=== PATIENT | male | born 1945 | race Caucasian/White ===

== ENCOUNTER 2021-01-18 00:35 | Observation (INO) ==
[2021-01-18 01:45] LABS: Partial Thromboplastin Ratio 1.2; Prothrombin Time 18.9 Seconds (9.0-12.0)
[2021-01-18 01:47] LABS: Albumin Level 3.2 gm/dl (3.4-5.0); BUN Creatinine Ratio 14.3 (10-20); Calcium 9.1 mg/dl (8.5-10.1); Creatinine Clr Calc Pharmacy 56.3 ml/min; Est GFR (African American) 50.8 ml/min; Est GFR (Non-African American) 43.8 ml/min; Potassium 3.2 mmol/L (3.5-5.1)
[2021-01-18 01:50] LABS: Albumin Globulin Ratio 0.8 (0.9-2); Bilirubin,Total 1.9 mg/dl (0.2-1); Globulin 3.9 gm/dl (2.5-4.0); Total Protein 7.1 gm/dl (6.4-8.2)
[2021-01-18] MEDS ORDERED: METOPROLOL TARTRATE 1 MG/ML VIAL IV STA ×2 (02:06→23:47)
[2021-01-18] MEDS ORDERED: SODIUM CHLORIDE 0.9% 250 ML IV ONE (02:07)
[2021-01-18 02:15] LABS: Hematocrit (blood only) 48.3 % (42-52); Hemoglobin 16.2 g/dL (14.0-18.0); Mean Corpuscular Hemoglobin 27.9 pg (25-34); Mean Corpuscular Hgb Conc 33.5 g/dL (32-36); Mean Corpuscular Volume 83.3 fL (80-100); Mean Platelet Volume 9.8 fL (7.4-10.4); Platelet Count 79 K/uL (130-400); RDW Standard Deviation 48.1 fL (36.4-46.3); White Blood Count 6.98 K/uL (4.8-10.8)
[2021-01-18] MEDS ORDERED: SODIUM CHLORIDE 0.9% 1000ML 1,000 ML IV ONE (02:17)
[2021-01-18 02:29] LABS: Basophils # (auto) 0.01 K/uL (0-0.2); Basophils % (auto) 0.1 %; Eosinophils # (auto) 0.07 K/uL (0-0.5); Immature Granulocytes # (auto) 0.03 K/uL (0.00-0.02); Immature Granulocytes % (auto) 0.4 %; Lymphocytes # (auto) 0.75 K/uL (1.2-3.4); Lymphocytes % (auto) 10.7 %; Monocytes # (auto) 0.58 K/uL (0.11-0.59); Monocytes % (auto) 8.3 %; Neutrophils # (auto) 5.54 K/uL (1.4-6.5); Neutrophils % (auto) 79.5 %; Platelet Estimate Decreased (Normal)
[2021-01-18] MEDS: POTASSIUM CHLORIDE / WTR 10 MEQ/100 ML PLCT IV SCH ×2 (02:50→03:51)
[2021-01-18 04:10] LABS: Lyme Ab IgG w/WB Rflx Negative (Negative); Lyme Ab IgM w/WB Rflx Negative (Negative)
[2021-01-18] MEDS ORDERED: DOXYCYCLINE HYCLATE 100 MG in DEXTROSE 5% 100 ML IV STA (04:48)
[2021-01-18] MEDS ORDERED: CEFEPIME 2,000 MG/20 ML VIAL IV STA (04:59)
[2021-01-18] MEDS ORDERED: SODIUM CHLORIDE 0.9% 500 ML IV ONE (05:13)
[2021-01-18 05:20] LABS: Appearance Urine Clear (Clear); Bilirubin Urine Negative (Negative); Blood Urine Negative (Negative); Color Urine Dark Yellow; Glucose Urine UA Negative (Negative); Ketones Urine Trace (Negative); Leukocyte Esterase Urine Negative (Negative); Nitrite Urine Negative (Negative); Protein Urine Negative (Negative); Specific Gravity Urine 1.013 (1.000-1.030); Urobilinogen Urine Negative (Negative)
[2021-01-18] MEDS: SODIUM CHLORIDE 0.9% 1000ML 1,000 ML IV SCH ×3 (05:59→22:00)
--- NOTE | 2021-01-18 06:21 | History & Physical Report ---
Date of Service January 18, 2021 Assessment & Plan (1) Dyspnea: Plan: Julius Bauer is a 75-year-old male with PMH significant for for pulmonary embolisms on warfarin anticoagulation, chronic kidney disease stage III, hypertension, GERD; who presents for concern of worsening illness over the last day. Dyspnea: -Patient with new 2 L oxygen requirement due to desaturations in ED -CXR in ED demonstrating slight increased opacities over right lower lobe corroborated with auscultative findings -Procalcitonin elevated -Negative WBC -Lyme negative -Anaplasma pending -Received cefepime in ED as well as doxycycline -Continue doxycycline -BNP pending given peripheral edema and new oxygen requirement Acute kidney injury on CKD stage III: -Creatinine 1.53 on admission (baseline creatinine appears to be 1.1) -Hold nephrotoxic agents at this point -Continue to monitor daily History of pulmonary embolisms: -Chronically anticoagulated on warfarin -INR 2.0 on admission -At this time minimal concern for acute PE -No baseline history of oxygen requirement -Consideration of CT PE protocol if further concerns; however dyspnea more likely to be related to underlying infectious process at this time Hypertension: -Continue home carvedilol 12.5 mgBID Diet: Carb consistent CODE STATUS: DNR/DNI DVT prophylaxis: Warfarin (2) History of pulmonary embolus (PE): (3) Chronic kidney disease, stage 3 (moderate): (4) Prediabetes: (5) Essential hypertension: (6) Warfarin anticoagulation: History of Present Illness Primary Care Provider: Haydee Mondragon DO Julius Bauer is a 75-year-old male with PMH significant for for pulmonary embolisms on warfarin anticoagulation, chronic kidney disease stage III, hypertension, GERD; who presents for concern of worsening illness over the last day. Over the last day has had concerns for worsening fevers, chills, sweats, fatigue, and winded/short of breath. No history was going to ignore it however ultimately called EMS given his continued symptoms overnight. No recent sick contacts that he can identify. Spends a considerable portion of his time outdoors gardening. In the ED worked up for tickborne illnesses given high prevalence in local areas of tickborne disease. Allergies Allergy/AdvReac Type Severity Reaction Status Date / Time No Known Allergies Allergy Verified 01/18/21 01:37 Home Medications Medication Instructions Recorded Confirmed Type aspirin 81 mg tablet,delayed 81 mg PO HS tab 12/21/17 01/18/21 History release (Adult Aspirin Regimen) acetaminophen 650 mg 650 mg PO QID PRN tab 01/22/19 01/18/21 History tablet,extended release CPAP Machine #1 ea 01/01/20 12/30/20 Rx lansoprazole 15 mg capsule,delayed 15 mg PO DAILY #90 cap 07/22/20 01/18/21 Rx release venlafaxine 37.5 mg tablet 37.5 mg PO BID #180 tab 11/24/20 01/18/21 Rx bstpsmfdrfea-jsu-zizlt acid-vit 1 tab PO 3XWK tab 12/01/20 01/18/21 History K-lycop 400 mcg-20 mcg-370 mcg tablet (Men's 50 Plus Multivitamin) alprazolam 0.5 mg tablet (Xanax) 0.5 mg PO BID PRN #60 tab 12/20/20 01/18/21 Rx carvedilol 12.5 mg tablet 12.5 mg PO BID #180 tab 12/29/20 01/18/21 Rx warfarin 2 mg tablet See Rx Instructions PO UD #90 tab 01/12/21 01/18/21 Rx calcium carbonate 500 mg (1,250 1 tab PO DAILY 01/18/21 01/18/21 History mg)-vitamin D3 125 unit tablet Past Med/Surg History Medical History Anxiety Chronic kidney disease, stage 3 (moderate) Chronic venous insufficiency DVT (deep venous thrombosis) Essential hypertension GERD (gastroesophageal reflux disease) History of colon cancer History of pulmonary embolus (PE) History of TIA (transient ischemic attack) Lymphedema Obstructive sleep apnea syndrome Prediabetes Restless legs syndrome Vitamin D insufficiency Surgical History History of eyelid surgery History of tonsillectomy S/P partial colectomy (1992) Family History Unknown Hypertension Father Cancer Lung disease Mother Myocardial infarction Coronary heart disease Son BRITTNEY (obstructive sleep apnea) Denies family history of Ovarian cancer Prostate cancer Breast cancer Colorectal cancer Social History Smoking Status: Former smoker Age Started Using Tobacco: 12; packs per day: 2; Second Hand Exposure: No; Hx Alcohol Use: No Hx Substance Use: No Preferred Language: Thai Communication Ability: Effective Visual Impairment: Severely Limited Hearing Ability: Normal Health Care Aide Required: No Beliefs That Will Affect Care: None marital status: Current Living Situation: Spouse Current Living Situation Comment: 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 occupational status: retired How many Children do You have: 1 How many Children do You have Comment: children are local and able to assist as needed Feels Safe at Home: Yes Diet Comment: has meals on wheels during the past year weight has: remained stable Dental Care, Regularly: No Physical Activity Frequency: 1-2 Times per Week Seatbelt Use: always Sunscreen Use: Yes Assistive Devices: Cane and Glasses Review of Systems Review of Systems: All systems reviewed & are unremarkable except as noted in HPI & below Physical Exam Constitutional: + frail appearing, + disheveled and + diaphoretic Eyes: PERRL, conjunctivae normal, anicteric sclerae Respiratory: normal respiratory effort; no respiratory distress, no labored breathing, no retractions and does not use accessory muscles Auscultation: + diminished lung sounds and + rhonchi (Coarse over whole field bilaterally); breath sounds present, no rales and no wheezes Cardiovascular: Rate/Rhythm: regular rate and regular rhythm Heart Sounds: no gallop, no murmur and no cardiac rub Vessels: normal peripheral pulses; no JVD Extremities: + edema Gastrointestinal (Abdomen): Inspection/Auscultation: normal bowel sounds; abdomen not distended Percussion/Palpation: abdomen soft; abdomen nontender and no guarding Musculoskeletal: no cyanosis or clubbing, extremities motor strength 5/5 Skin: Chronic appearing venous stasis changes to bilateral lower extremities, old eschar over right lower extremity Psychiatric: Orientation: alert and oriented x 3 Results & Data Results & Data ([facility]) Vital Signs (Past 12 Hours) Vital Signs Temp Pulse Resp BP Pulse Ox 01/18/21 05:30 90 95/66 L 99 01/18/21 05:00 90 20 85/60 L 99 01/18/21 04:55 37.1 C 01/18/21 04:43 92 H 22 107/67 94 01/18/21 04:30 90 18 93 01/18/21 04:00 96/68 L 93 01/18/21 03:30 93 H 110/63 93 01/18/21 03:00 95 H 100/66 93 01/18/21 02:30 96 H 100/69 93 01/18/21 02:13 121 H 107/73 92 01/18/21 02:00 97 H 109/67 91 01/18/21 01:30 91/62 L 95 01/18/21 01:11 37.2 C 136 H 22 108/75 94 01/18/21 01:00 137 H 102/70 92 Laboratory Results 01/18/21 01/18/21 01/18/21 Range/Units 06:05 06:05 06:05 WBC (4.8-10.8) K/uL RBC (4.7-6.1) M/uL Hgb (14.0-18.0) g/dL Hct (42-52) % MCV (80-100) fL MCH (25-34) pg MCHC (32-36) g/dL RDW Std Deviation (36.4-46.3) fL RDW Coeff of Scooter (11.5-14.5) % Plt Count (130-400) K/uL MPV (7.4-10.4) fL Immature Gran % (Auto) % Neut % (Auto) % Lymph % (Auto) % Randall % (Auto) % Eos % (Auto) % Baso % (Auto) % Neut # (Auto) (1.4-6.5) K/uL Lymph # (Auto) (1.2-3.4) K/uL Randall # (Auto) (0.11-0.59) K/uL Eos # (Auto) (0-0.5) K/uL Baso # (Auto) (0-0.2) K/uL Immature Gran # (Auto) (0.00-0.02) K/uL Platelet Estimate (Normal) PT (9.0-12.0) Seconds INR (0.9-1.1) APTT (21.0-31.0) Seconds PTT Ratio Sodium (136-145) mmol/L Potassium (3.5-5.1) mmol/L Chloride (98-107) mmol/L Carbon Dioxide (21-32) mmol/L Anion Gap (3-11) BUN (7-18) mg/dl Creatinine (0.6-1.4) mg/dl Est Cr Clr Drug Dosing ml/min Est GFR ( Amer) ml/min Est GFR (Non-Af Amer) ml/min BUN/Creatinine Ratio (10-20) Glucose (70-99) mg/dl Lactate 2.1 H* (0.4-2.0) mmol/L Calcium (8.5-10.1) mg/dl Total Bilirubin (0.2-1) mg/dl AST (15-37) U/L ALT (12-78) U/L Alkaline Phosphatase (45-117) U/L NT-Pro-B Natriuret Pep 2861 H (0-900) pg/ml Total Protein (6.4-8.2) gm/dl Albumin (3.4-5.0) gm/dl Globulin (2.5-4.0) gm/dl Albumin/Globulin Ratio (0.9-2) Procalcitonin 12.99 H (0-0.5) ng/ml Urine Color Urine Appearance (Clear) Urine pH (4.5-7.5) Ur Specific [place] (1.000-1.030) Urine Protein (Negative) Urine Glucose (UA) (Negative) Urine Ketones (Negative) Urine Blood (Negative) Urine Nitrite (Negative) Urine Bilirubin (Negative) Urine Urobilinogen (Negative) Ur Leukocyte Esterase (Negative) A. phagocytophilum DNA Lyme Disease IgG Ab (Negative) Lyme Disease IgM Ab (Negative) COVID-19 Eval Order SARS-CoV-2 (PCR) (Negative) 01/18/21 01/18/21 01/18/21 Range/Units 04:40 03:53 02:38 WBC (4.8-10.8) K/uL RBC (4.7-6.1) M/uL Hgb (14.0-18.0) g/dL Hct (42-52) % MCV (80-100) fL MCH (25-34) pg MCHC (32-36) g/dL RDW Std Deviation (36.4-46.3) fL RDW Coeff of Scooter (11.5-14.5) % Plt Count (130-400) K/uL MPV (7.4-10.4) fL Immature Gran % (Auto) % Neut % (Auto) % Lymph % (Auto) % Randall % (Auto) % Eos % (Auto) % Baso % (Auto) % Neut # (Auto) (1.4-6.5) K/uL Lymph # (Auto) (1.2-3.4) K/uL Randall # (Auto) (0.11-0.59) K/uL Eos # (Auto) (0-0.5) K/uL Baso # (Auto) (0-0.2) K/uL Immature Gran # (Auto) (0.00-0.02) K/uL Platelet Estimate (Normal) PT (9.0-12.0) Seconds INR (0.9-1.1) APTT (21.0-31.0) Seconds PTT Ratio Sodium (136-145) mmol/L Potassium (3.5-5.1) mmol/L Chloride (98-107) mmol/L Carbon Dioxide (21-32) mmol/L Anion Gap (3-11) BUN (7-18) mg/dl Creatinine (0.6-1.4) mg/dl Est Cr Clr Drug Dosing ml/min Est GFR ( Amer) ml/min Est GFR (Non-Af Amer) ml/min BUN/Creatinine Ratio (10-20) Glucose (70-99) mg/dl Lactate 2.3 H* (0.4-2.0) mmol/L Calcium (8.5-10.1) mg/dl Total Bilirubin (0.2-1) mg/dl AST (15-37) U/L ALT (12-78) U/L Alkaline Phosphatase (45-117) U/L NT-Pro-B Natriuret Pep (0-900) pg/ml Total Protein (6.4-8.2) gm/dl Albumin (3.4-5.0) gm/dl Globulin (2.5-4.0) gm/dl Albumin/Globulin Ratio (0.9-2) Procalcitonin (0-0.5) ng/ml Urine Color Dark Yellow Urine Appearance Clear (Clear) Urine pH 5.0 (4.5-7.5) Ur Specific [place] 1.013 (1.000-1.030) Urine Protein Negative (Negative) Urine Glucose (UA) Negative (Negative) Urine Ketones Trace H (Negative) Urine Blood Negative (Negative) Urine Nitrite Negative (Negative) Urine Bilirubin Negative (Negative) Urine Urobilinogen Negative (Negative) Ur Leukocyte Esterase Negative (Negative) A. phagocytophilum DNA Lyme Disease IgG Ab (Negative) Lyme Disease IgM Ab (Negative) COVID-19 Eval Order SARS-CoV-2 (PCR) NEGATIVE (Negative) 01/18/21 01/18/21 01/18/21 Range/Units 02:38 01:03 01:03 WBC (4.8-10.8) K/uL RBC (4.7-6.1) M/uL Hgb (14.0-18.0) g/dL Hct (42-52) % MCV (80-100) fL MCH (25-34) pg MCHC (32-36) g/dL RDW Std Deviation (36.4-46.3) fL RDW Coeff of Scooter (11.5-14.5) % Plt Count (130-400) K/uL MPV (7.4-10.4) fL Immature Gran % (Auto) % Neut % (Auto) % Lymph % (Auto) % Randall % (Auto) % Eos % (Auto) % Baso % (Auto) % Neut # (Auto) (1.4-6.5) K/uL Lymph # (Auto) (1.2-3.4) K/uL Randall # (Auto) (0.11-0.59) K/uL Eos # (Auto) (0-0.5) K/uL Baso # (Auto) (0-0.2) K/uL Immature Gran # (Auto) (0.00-0.02) K/uL Platelet Estimate (Normal) PT (9.0-12.0) Seconds INR (0.9-1.1) APTT (21.0-31.0) Seconds PTT Ratio Sodium (136-145) mmol/L Potassium (3.5-5.1) mmol/L Chloride (98-107) mmol/L Carbon Dioxide (21-32) mmol/L Anion Gap (3-11) BUN (7-18) mg/dl Creatinine (0.6-1.4) mg/dl Est Cr Clr Drug Dosing ml/min Est GFR ( Amer) ml/min Est GFR (Non-Af Amer) ml/min BUN/Creatinine Ratio (10-20) Glucose (70-99) mg/dl Lactate (0.4-2.0) mmol/L Calcium (8.5-10.1) mg/dl Total Bilirubin (0.2-1) mg/dl AST (15-37) U/L ALT (12-78) U/L Alkaline Phosphatase (45-117) U/L NT-Pro-B Natriuret Pep (0-900) pg/ml Total Protein (6.4-8.2) gm/dl Albumin (3.4-5.0) gm/dl Globulin (2.5-4.0) gm/dl Albumin/Globulin Ratio (0.9-2) Procalcitonin (0-0.5) ng/ml Urine Color Urine Appearance (Clear) Urine pH (4.5-7.5) Ur Specific [place] (1.000-1.030) Urine Protein (Negative) Urine Glucose (UA) (Negative) Urine Ketones (Negative) Urine Blood (Negative) Urine Nitrite (Negative) Urine Bilirubin (Negative) Urine Urobilinogen (Negative) Ur Leukocyte Esterase (Negative) A. phagocytophilum DNA Pending Lyme Disease IgG Ab Negative (Negative) Lyme Disease IgM Ab Negative (Negative) COVID-19 Eval Order Covid19 at [facility] SARS-CoV-2 (PCR) (Negative) 01/18/21 01/18/21 01/18/21 Range/Units 01:03 01:03 01:03 WBC 6.98 (4.8-10.8) K/uL RBC 5.80 (4.7-6.1) M/uL Hgb 16.2 (14.0-18.0) g/dL Hct 48.3 (42-52) % MCV 83.3 (80-100) fL MCH 27.9 (25-34) pg MCHC 33.5 (32-36) g/dL RDW Std Deviation 48.1 H (36.4-46.3) fL RDW Coeff of Scooter 16.0 H (11.5-14.5) % Plt Count 79 L (130-400) K/uL MPV 9.8 (7.4-10.4) fL Immature Gran % (Auto) 0.4 % Neut % (Auto) 79.5 % Lymph % (Auto) 10.7 % Randall % (Auto) 8.3 % Eos % (Auto) 1.0 % Baso % (Auto) 0.1 % Neut # (Auto) 5.54 (1.4-6.5) K/uL Lymph # (Auto) 0.75 L (1.2-3.4) K/uL Randall # (Auto) 0.58 (0.11-0.59) K/uL Eos # (Auto) 0.07 (0-0.5) K/uL Baso # (Auto) 0.01 (0-0.2) K/uL Immature Gran # (Auto) 0.03 H (0.00-0.02) K/uL Platelet Estimate Decreased L (Normal) PT 18.9 H (9.0-12.0) Seconds INR 2.0 H (0.9-1.1) APTT 31.0 (21.0-31.0) Seconds PTT Ratio 1.2 Sodium 142 (136-145) mmol/L Potassium 3.2 L (3.5-5.1) mmol/L Chloride 109 H (98-107) mmol/L Carbon Dioxide 25 (21-32) mmol/L Anion Gap 8.0 (3-11) BUN 22 H (7-18) mg/dl Creatinine 1.53 H (0.6-1.4) mg/dl Est Cr Clr Drug Dosing 56.3 ml/min Est GFR ( Amer) 50.8 ml/min Est GFR (Non-Af Amer) 43.8 ml/min BUN/Creatinine Ratio 14.3 (10-20) Glucose 111 H (70-99) mg/dl Lactate (0.4-2.0) mmol/L Calcium 9.1 (8.5-10.1) mg/dl Total Bilirubin 1.9 H (0.2-1) mg/dl AST 27 (15-37) U/L ALT 19 (12-78) U/L Alkaline Phosphatase 57 (45-117) U/L NT-Pro-B Natriuret Pep (0-900) pg/ml Total Protein 7.1 (6.4-8.2) gm/dl Albumin 3.2 L (3.4-5.0) gm/dl Globulin 3.9 (2.5-4.0) gm/dl Albumin/Globulin Ratio 0.8 L (0.9-2) Procalcitonin (0-0.5) ng/ml Urine Color Urine Appearance (Clear) Urine pH (4.5-7.5) Ur Specific [place] (1.000-1.030) Urine Protein (Negative) Urine Glucose (UA) (Negative) Urine Ketones (Negative) Urine Blood (Negative) Urine Nitrite (Negative) Urine Bilirubin (Negative) Urine Urobilinogen (Negative) Ur Leukocyte Esterase (Negative) A. phagocytophilum DNA Lyme Disease IgG Ab (Negative) Lyme Disease IgM Ab (Negative) COVID-19 Eval Order SARS-CoV-2 (PCR) (Negative) Medications Administered Home Medication List Medication Instructions Recorded aspirin 81 mg tablet,delayed 81 mg PO HS tab 12/21/17 release (Adult Aspirin Regimen) acetaminophen 650 mg 650 mg PO QID PRN tab 01/22/19 tablet,extended release CPAP Machine #1 ea 01/01/20 lansoprazole 15 mg capsule,delayed 15 mg PO DAILY #90 cap 07/22/20 release venlafaxine 37.5 mg tablet 37.5 mg PO BID #180 tab 11/24/20 ovrudycalvwn-wyr-ozhwm acid-vit 1 tab PO 3XWK tab 12/01/20 K-lycop 400 mcg-20 mcg-370 mcg tablet (Men's 50 Plus Multivitamin) alprazolam 0.5 mg tablet (Xanax) 0.5 mg PO BID PRN #60 tab 12/20/20 carvedilol 12.5 mg tablet 12.5 mg PO BID #180 tab 12/29/20 warfarin 2 mg tablet See Rx Instructions PO UD #90 tab 01/12/21 calcium carbonate 500 mg (1,250 1 tab PO DAILY 01/18/21 mg)-vitamin D3 125 unit tablet Code Status & VTE Plan VTE Prophylaxis Plan VTE Prophylaxis will be ordered: Yes Supervising Physician Co-Signing Physician Notes Attending addendum: I have physically seen this patient, have supervised the medical residents activities, and agree with the H&P unless as otherwise noted. Assessment and Plan: Early pneumonia/right lower lobe/history of PE-- Status post cefepime and doxycycline in ED Continue doxycycline 100 mg IV twice daily INR therapeutic at 2.0 on warfarin, continue MISTI on CKD stage III - Creatinine 1.53 upon admission, with base 1.1 Gentle rehydration, repeat laboratories in a.m. Concern regarding tickborne illness- Lyme testing negative Anaplasmosis smear is negative Continue to doxycycline IV as noted above Remaining orders and notations as noted Resident Activity Tracking Resident Involvement: Resident Care Provided Care Provided: Adult Hospital Medicine
[2021-01-18] MEDS ORDERED: POTASSIUM CHLORIDE CRTAB 20 MEQ TABCR PO STA (08:26)
--- NOTE | 2021-01-18 09:08 | XRay Report ---
XR chest 1V portable INDICATION: MN ^Y ^short of breath. TECHNIQUE: Single frontal radiograph of the chest was obtained. Comparison: Comparison is made to chest one view 12/12/2017 FINDINGS: Exam is limited by underpenetration. No lines and tubes are seen. The aorta is tortuous. The remainde r of the cardiomediastinal silhouette is unremarkable. The lungs are clear. No evidence of pleural ef fusion or pneumothorax. IMPRESSION: No acute chest disease. ACT 112: Negative or not required by law. Electronically signed by: Yan Gao M.D. 01/18/2021 9:06 AM
[2021-01-18] MEDS ORDERED: cefTRIAXone SODIUM 1,000 MG in DEXTROSE 5% 50 ML IV STA (11:29)
[2021-01-18] MEDS ORDERED: MAGNESIUM HYDROXIDE SUSP 30 ML UDC PO PRN (11:37)
[2021-01-18] MEDS ORDERED: ACETAMINOPHEN 500 MG TAB PO PRN (11:37)
[2021-01-18] MEDS ORDERED: POLYETHYLENE (MIRALAX) 17 GM PACK PO PRN (11:37)
[2021-01-18] MEDS ORDERED: ONDANSETRON INJ 2 MG/ML 2 ML VIAL IV PRN (11:37)
[2021-01-18] MEDS ORDERED: ALPRAZolam 0.5 MG TABLET PO PRN (11:37)
[2021-01-18] MEDS ORDERED: ALUMINUM/MAGNESIUM SUSP 30 ML UDC PO PRN (11:37)
[2021-01-18] MEDS ORDERED: cefTRIAXone SODIUM 2,000 MG in DEXTROSE 5% 50 ML IV SCH (12:00)
[2021-01-18] MEDS: carvediloL 12.5 MG TAB PO SCH ×2 (12:22→21:19)
[2021-01-18] MEDS: LANSOPRAZOLE 15 MG SOLTAB PO SCH (12:22)
[2021-01-18] MEDS: VENLAFAXINE HCL 37.5 MG TAB PO SCH ×2 (12:22→21:19)
--- NOTE | 2021-01-18 14:36 | CT Scan Report ---
CT chest diagnostic wo con CLINICAL HISTORY: Rll pnuemonia COMPARISON STUDY: No previous studies for comparison. CT DOSE: 618.83 mGycm TECHNIQUE: CT of the thorax was performed from the thoracic inlet to the lung bases. Images are revi ewed in the axial, sagittal, and coronal planes. IV contrast was not administered for this examinatio n. A dose lowering technique was utilized adhering to the principles of ALARA. FINDINGS: There is no axillary, supra clavicle or internal mammary lymphadenopathy seen. Mediastinal lymph node s are not enlarged. Thyroid: Visualized portion of thyroid gland shows no evidence of focal lesions. Esophagus is normal. There is moderate fat containing hiatal hernia is seen. Thoracic aorta: Ascending portion of thoracic aorta is ectatic measuring 4.1 cm in diameter. Main pulmonary artery is dilated measuring 3.2 cm in diameter, which could be seen in pulmonary hyper tension. Azygos vein is prominent. Heart: The heart is normal in size and configuration, without pericardial effusion. Minimal coronary calcifications are seen. Lungs and pleural spaces: Tracheobronchial tree is patent. Prominent septal thickening is seen at peripheral aspect of posterior basal segments of bilateral low er lobes and associated with architectural distortion and possible traction bronchiectasis. Focal are a of possible honeycombing is seen at the lateral basal segment of the left lower lobe (4/210). Above -mentioned findings could represent interstitial lung disease. No definite groundglass attenuation is seen, UIP pattern is possible however evaluation is limited due to significant motion artifact. No definite large pulmonary nodules are seen on this suboptimal exam. Upper abdomen: Partially visualized upper abdominal viscera is within normal limits. Skeletal structures: Multilevel degenerative changes of the spine. No definite aggressive osseous les ions are seen. IMPRESSION: No infiltrates or consolidative lesions. No pneumonia seen. Mild atelectasis is seen at dependent portions of bilateral lower lobes. Interstitial fibrosis is seen at the posterior distal aspect of bilateral lower lobes without signifi cant groundglass attenuation; also there is focal area of possible honeycombing and mild traction bro nchiectasis which might represent UIP pattern. Evaluation is suboptimal due to motion artifact. Pleas e correlate above-mentioned findings with prior history of interstitial lung disease. Further evaluat ion with prone imaging might be considered. Dilatation of the main pulmonary artery could be seen in pulmonary hypertension. Please note that int erstitial lung disease sometimes accompanied by pulmonary hypertension. Ectasia of ascending thoracic aorta. Please correlate above-mentioned findings with prior history. The rest of findings as above. ACT 112: Negative or not required by law. The above report was generated using voice recognition software. It may contain grammatical, syntax o r spelling errors. Electronically signed by: Yahaira Warren DO 01/18/2021 2:35 PM
[2021-01-18] MEDS: DOXYCYCLINE HYCLATE 100 MG in DEXTROSE 5% 100 ML IV SCH (17:08)
[2021-01-18] MEDS: WARFARIN SOD 2 MG TAB PO SCH (17:09)
--- NOTE | 2021-01-18 17:24 | Medical Student Progress Note ---
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 Fever with fatigue, chills, malaise secondary to suspected tick-borne illness vs community-acquired PNA - crackles and rhonchi on auscultation, R lower lobe with more rhonchi than L lower lobe - chest x-ray and CT Chest with no acute findings - continue oxygen via nasal cannula until oxygen demand returns to baseline - Echo pending, last echo 2017 - monitor platelets w/ CBC, likely low due to infection - blood cultures pending - Lyme, anaplasmosis, and babesiosis testing negative, however, with high false negative rate will continue to monitor patient while symptomatic. - Continue NSS 125ml/hr and supportive measures - Continue Doxycycline 100 mg IV BID and monitor symptoms closely, - Patient received 1 dose of Rocephin, since discontinued (PNA less likely) Hypertension -Continue home Carvedilol MISTI on CKD stage III -Creatinine on admission 1.53, base 1.1-1.2 - continue anti-hypertensives, is on carvedilol - monitor BMP including Creatinine daily - IVF hydration as above History of PE's -On warfarin therapy -INR of 2 on admission -Continue to monitor throughout stay -Patient was therapeutic on admission, low suspicion for current PE -If concern worsens, consider CTA to r/o clots GERD -Continue home Lasoprazole BRITTNEY - continue CPAP use - encourage weight loss and nutritional changes (more fruits and veggies, heart- healthy diet) chronic venous insufficiency - compression stockings - encourage activity and walking around, good infection prevention (keep wounds and cuts clean) Anxiety -Well controlled on home medications -Continue home Venlafaxine, continue home xanax PRN Dispo: Med/Surg Telemetry for IV antibiotics, IVF, supportive care, and continuous cardiac monitoring. FEN/GI: Heart Healthy diet, NSS 125ml/hr DVT: Warfarin Code: DNR/DNI (2) Dyspnea: (3) Malaise: (4) Chills: Admission and Anticipated Discharge Date Admission Date: January 18, 2021 Supervising Attestation I personally examined the patient and verified all lindo points of history and exam, discussed case, and agree with decision making with Surendra Ortez MS2 Ongoing fevers and chills. A little bit of cough that is new, notes no new or worse dyspnea. Everything really started abruptly in the last day or sohe was eating breakfast feeling fine, and then about an hour later he was having chills. Vitals noted, in general he is awake and alert to 2 times a centimeter today at first he appears quite fatigued and starts to have some shakes, later he disappears resting a little tired but no distress. HEENT normocephalic atraumatic mucous membranes moist. Lungs show right greater than left scattered rales good air entry, no wheezes no accessory muscle use. Abdomen is soft nondistended nontender no masses organomegaly. Cardio is regular without rubs murmurs or gallops. Extremities show no sinus clubbing or edema no calf tenderness no erythema no rashes. Skin shows no rashes no pallor or icterus. Neuro without focal deficits at rest. Septic picture/constitutional symptoms/rigorsetiology not overtly clearinitial ly concern on pneumonia based on new cough and nondescript chest x- rayparticularly given lung exam findingsCT promptly checked without anything overtly concerning for pneumonia. Tickborne type illnesses certainly would be high on the differential given where we live, and his thrombocytopenia, as well as the overall presentationfor now empiric doxycycline, and if he does not improve, revisit diagnostic testing versus change to Zithromax/atovaquone. Follow blood cultures. Supportive care. Serial exams/serial labs. Otherwise as above. 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 Patient states on Tuesday 01/16 he spent the day doing laundry and yard work and went to sleep around 12 am. He says he woke up a few times that night. When he woke up the next morning 01/17 to get ready for the day, he felt like he had no energy and made his way to the couch. He was nauseous and tried to throw up, but was only dry heaving. He states he was also freezing and needed to use an electric blanket, and he says he is almost never cold. He shares that he was so cold that he was physically shaking. Patient attempted to use the bathroom and lost his footing, but caught himself. He did not hit his head or the ground. He shares that he didn't take any medication for any of his symptoms, but took his daily medications on Sunday. He believes it was after his instability/losing his footing that his called the ambulance, though he is unsure what time many of the events on Sunday happened, as well as the precise order of events. Of note, patient mentions that he is experiencing brain fog and is unsure of exact times that things happened the last few days. Upon arrival at the ED, he was found to have a fever, chills, and sweating. He was not short of breath and did not have chest pain or discomfort. However, he felt very sick and very weak. He states he has been unable to eat due to the nausea, but he vaguely remembers eating raisin bran, though he is not sure if that was this morning or yesterday morning. Along with his "brain fog" he has a headache this AM. It doesn't currently hurt him to breathe, but he has some abdominal discomfort from the nausea. He does not feel constipated and has been able to urinate overnight. He is not in acute pain, but is in pain from his chronic back and arthritis issues. Significantly, patient and his recently got a puppy and patient finds himself in positions of caring for the puppy that lead to his back and joints hurting. This morning, his main concern is how fatigued and tired he is. He was laying on his side to avoid the discomfort of laying on his back while conversing with me. He has no changes to taste or smell and was found to be COVID negative. He does sound a little congested and does have a dry, deep cough this AM. He told me that his vision is currently blurry but he is able to see okay. His right eye is always "bad" and he can hardly see out of it normally. He uses glasses only for reading. No other changes to vision, and no changes to hearing. Notably, he has no sick contacts and shares that he and his rarely go out. He shared with me that he had a similar experience to this episode a few years ago at [facility], but he isn't sure what the diagnosis or treatment was. Review of Systems Review of Systems: All systems reviewed & are unremarkable except as noted in HPI & below Constitutional: + fever, + chills, + sweats, + fatigue and + weakness nausea Eyes: new bilateral blurry vision, R eye decreased visual acuity at all times Ear, Nose, Mouth, Throat: + nasal congestion dry cough Respiratory: + cough and + dyspnea Cardiovascular: Additional Comments: bilateral lower extremity edema Gastrointestinal: + bloating and + nausea Integumentary: + lesions and + dry skin healing lower extremity lesions bilaterally, pt with history of chronic venous insufficiency Neurologic: + headache(s) Psychiatric: "brain fog" Endocrine: + fatigue and + flushing Allergy / Immunological: + cough and + dyspnea Physical Exam Constitutional: well developed, well nourished, + ill appearing, + obese, well groomed and cooperative Eyes: PERRL, conjunctivae normal, anicteric sclerae ENMT: external ear and nose normal, oropharynx normal Nose: + nasal mucous membrane abnormality (moist mucus membranes bilaterally, patient congested) Mouth: + oropharynx abnormality (white sputum appearing liquid on superior aspect of posterior palate ) Throat: uvula midline Neck: trachea midline, no thyromegaly normal visual inspection, trachea midline and + thick neck Respiratory: normal respiratory effort, + cough, able to speak in complete sentences and + abnormal respiratory pattern Auscultation: + crackles and + rhonchi (lower lobes bilaterally, more pronounced in R lower lobe) Cardiovascular: RRR, no murmur, no edema Heart Sounds: normal S1 and normal S2 Vessels: normal peripheral pulses Extremities: + edema (+1 to the ankle b/l ) Chest (Breasts): normal inspection/palpation of breasts Gastrointestinal (Abdomen): normal bowel sounds, soft, nontender, no hepatosplenomegaly some abdominal discomfort due to nausea Musculoskeletal: no cyanosis or clubbing, extremities motor strength 5/5 Head/Neck/Chest: normocephalic, head atraumatic and neck supple Extremities: extremities normal to inspection and strength 5/5 throughout Skin: + rash (extensive bruising on arms from pt's dog), + lesion (multiple healing lesions in various stages on lower extremities), + dry skin and + lichenification (on lower extremities bilaterally ) Neurologic: PERRL, EOMI, accommodation nl, no face palsy, no dysarthria normal touch/pain/proprioception, CN's II-XI intact bilaterally, moves all extremities and awake Cranial Nerves: sense of smell intact, PERRL, normal accommodation, EOM intact bilaterally, normal facial strength, tongue midline, normal hearing, able to rotate head bilaterally, able to elevate shoulders bilaterally, no nystagmus and symmetric palate elevation Psychiatric: A+Ox3, euthymic affect Apperance: appropriately groomed and appeared stated age Eye Contact: good eye contact Motor Behavior: no abnormal motor movements Speech: normal rate/rhythm/volume of speech Affect: euthymic affect Thought Process: linear/logical thought process Cognition: recent memory grossly intact, remote memory grossly intact, attention grossly intact and language grossly intact Results & Data ([facility]) Vital Signs (Past 12 Hours) Vital Signs Temp Pulse Pulse Resp BP BP Pulse Ox 01/18/21 16:34 83 01/18/21 14:32 37.6 C H 85 18 118/77 94 01/18/21 13:00 85 117/71 95 01/18/21 12:30 90 137/89 95 01/18/21 12:00 92 H 01/18/21 11:20 87 01/18/21 11:10 87 01/18/21 11:00 89 01/18/21 10:50 89 01/18/21 10:40 85 01/18/21 10:33 91 H 01/18/21 10:00 85 114/69 01/18/21 09:50 85 98 01/18/21 09:40 84 95 01/18/21 09:33 87 95 01/18/21 09:01 88 90/57 L 96 01/18/21 08:30 86 116/76 96 01/18/21 08:00 88 113/70 97 01/18/21 07:30 87 107/69 97 01/18/21 07:00 88 100/68 01/18/21 06:30 87 96/67 L 97 01/18/21 06:00 90 18 105/74 97 01/18/21 05:30 90 95/66 L 99 01/18/21 05:00 90 20 85/60 L 99 01/18/21 04:55 37.1 C 01/18/21 04:43 92 H 22 107/67 94
--- NOTE | 2021-01-18 18:39 | XCELERA ---
[id number]
--- NOTE | 2021-01-18 18:55 | Emergency Department Note ---
History of Present Illness General Chief complaint: Illness Stated complaint: ILLNESS/COVID EXPOSURE Time Seen by Provider: 01/18/21 02:02 History of Present Illness Maximum Pain Intensity: 3 Home Medications Medication Instructions Recorded Confirmed Type aspirin 81 mg tablet,delayed 81 mg PO HS tab 12/21/17 01/18/21 History release (Adult Aspirin Regimen) acetaminophen 650 mg 650 mg PO QID PRN tab 01/22/19 01/18/21 History tablet,extended release CPAP Machine #1 ea 01/01/20 12/30/20 Rx lansoprazole 15 mg capsule,delayed 15 mg PO DAILY #90 cap 07/22/20 01/18/21 Rx release venlafaxine 37.5 mg tablet 37.5 mg PO BID #180 tab 11/24/20 01/18/21 Rx ovdblrscpgch-dix-gidjt acid-vit 1 tab PO 3XWK tab 12/01/20 01/18/21 History K-lycop 400 mcg-20 mcg-370 mcg tablet (Men's 50 Plus Multivitamin) alprazolam 0.5 mg tablet (Xanax) 0.5 mg PO BID PRN #60 tab 12/20/20 01/18/21 Rx carvedilol 12.5 mg tablet 12.5 mg PO BID #180 tab 12/29/20 01/18/21 Rx warfarin 2 mg tablet See Rx Instructions PO UD #90 tab 01/12/21 01/18/21 Rx calcium carbonate 500 mg (1,250 1 tab PO DAILY 01/18/21 01/18/21 History mg)-vitamin D3 125 unit tablet Allergies Allergy/AdvReac Type Severity Reaction Status Date / Time No Known Allergies Allergy Verified 01/18/21 01:37 Past Med/Surg History Medical History Anxiety Chronic kidney disease, stage 3 (moderate) Chronic venous insufficiency DVT (deep venous thrombosis) Essential hypertension GERD (gastroesophageal reflux disease) History of colon cancer History of pulmonary embolus (PE) History of TIA (transient ischemic attack) Lymphedema Obstructive sleep apnea syndrome Prediabetes Restless legs syndrome Vitamin D insufficiency Surgical History History of eyelid surgery History of tonsillectomy S/P partial colectomy (1992) Family History Unknown Hypertension Father Cancer Lung disease Mother Myocardial infarction Coronary heart disease Son BRITTNEY (obstructive sleep apnea) Denies family history of Ovarian cancer Prostate cancer Breast cancer Colorectal cancer Social History Smoking Status: Former smoker Age Started Using Tobacco: 12; packs per day: 2; Second Hand Exposure: No; Hx Alcohol Use: No Hx Substance Use: No Preferred Language: [place] Ver[place]an Communication Ability: Effective Visual Impairment: Severely Limited Hearing Ability: Normal 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 Beliefs That Will Affect Care: None marital status: Current Living Situation: Spouse Current Living Situation Comment: 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 occupational status: retired How many Children do You have: 1 How many Children do You have Comment: children are local and able to assist as needed Feels Safe at Home: Yes Diet Comment: has meals on wheels during the past year weight has: remained stable Dental Care, Regularly: No Physical Activity Frequency: 1-2 Times per Week Seatbelt Use: always Sunscreen Use: Yes Assistive Devices: Cane and Glasses Physical Exam Vital Signs Vital Signs - 24 hr 01/18/21 01:00 01/18/21 01:11 01/18/21 01:30 Temperature 37.2 C Temperature Source Oral Pulse Rate 137 H 136 H Pulse Rate from SpO2 Sensor 137 H 103 H Respiratory Rate 22 Blood Pressure 102/70 108/75 91/62 L Blood Pressure Mean 80 86 71 Pulse Oximetry 92 94 95 Oxygen Delivery Method Room Air Room Air Oxygen Flow Rate Sepsis Recent Fever Within 48 Hours Yes Sepsis New/Unexplained Change in Mental Status No Sepsis Action Taken by Nursing No Action Required 01/18/21 02:00 01/18/21 02:13 01/18/21 02:30 Temperature Temperature Source Pulse Rate 97 H 121 H 96 H Pulse Rate from SpO2 Sensor 93 H 123 H 95 H Respiratory Rate Blood Pressure 109/67 107/73 100/69 Blood Pressure Mean 81 84 79 Pulse Oximetry 91 92 93 Oxygen Delivery Method Oxygen Flow Rate Sepsis Recent Fever Within 48 Hours Sepsis New/Unexplained Change in Mental Status Sepsis Action Taken by Nursing 01/18/21 03:00 01/18/21 03:30 01/18/21 04:00 Temperature Temperature Source Pulse Rate 95 H 93 H Pulse Rate from SpO2 Sensor 94 H 93 H Respiratory Rate Blood Pressure 100/66 110/63 96/68 L Blood Pressure Mean 77 78 77 Pulse Oximetry 93 93 93 Oxygen Delivery Method Nasal Cannula Nasal Cannula Nasal Cannula Oxygen Flow Rate 2 2 2 Sepsis Recent Fever Within 48 Hours Sepsis New/Unexplained Change in Mental Status Sepsis Action Taken by Nursing 01/18/21 04:30 01/18/21 04:43 01/18/21 04:55 Temperature 37.1 C Temperature Source Oral Pulse Rate 90 92 H Pulse Rate from SpO2 Sensor 91 H 92 H Respiratory Rate 18 22 Blood Pressure 107/67 Blood Pressure Mean 80 Pulse Oximetry 93 94 Oxygen Delivery Method Nasal Cannula Nasal Cannula Oxygen Flow Rate 2 2 Sepsis Recent Fever Within 48 Hours Sepsis New/Unexplained Change in Mental Status Sepsis Action Taken by Nursing 01/18/21 05:00 01/18/21 05:30 01/18/21 06:00 Temperature Temperature Source Pulse Rate 90 90 90 Pulse Rate from SpO2 Sensor 90 Respiratory Rate 20 18 Blood Pressure 85/60 L 95/66 L 105/74 Blood Pressure Mean 68 75 84 Pulse Oximetry 99 99 97 Oxygen Delivery Method Nasal Cannula Nasal Cannula Nasal Cannula Oxygen Flow Rate 2 2 2 Sepsis Recent Fever Within 48 Hours Sepsis New/Unexplained Change in Mental Status Sepsis Action Taken by Nursing Course Administered Medications Carvedilol (Carvedilol 12.5 Mg Tab) 12.5 mg PO BID KALPANA Stop: 02/17/21 11:36 Last Admin: 01/18/21 12:22 Dose: 12.5 mg Documented by: [id number] Sodium Chloride (Nss 1000ml) 1,000 mls @ 125 mls/hr IV .Q8H KALPANA Stop: 02/17/21 05:14 Last Admin: 01/18/21 14:18 Dose: 125 mls/hr Documented by: [id number] Infusion: 01/18/21 13:31 Dose: 0 mls/hr Documented by: [id number] Admin: 01/18/21 05:59 Dose: 125 mls/hr Documented by: [id number] Doxycycline Hyclate 100 mg/ (Dextrose) 110 mls @ 50 mls/hr IV Q12H KALPANA Stop: 01/25/21 17:59 Last Admin: 01/18/21 17:08 Dose: 50 mls/hr Documented by: [id number] Lansoprazole (Lansoprazole 15 Mg Soltab) 15 mg PO QAM KALPANA Stop: 02/17/21 11:36 Last Admin: 01/18/21 12:22 Dose: 15 mg Documented by: [id number] Venlafaxine HCl (Venlafaxine Hcl 37.5 Mg Tab) 37.5 mg PO BID KALPANA Stop: 02/17/21 11:36 Last Admin: 01/18/21 12:22 Dose: 37.5 mg Documented by: [id number] Warfarin Sodium (Warfarin Sod 2 Mg Tab) 2 mg PO [id number]@1600 KALPANA Stop: 02/17/21 15:59 Last Admin: 01/18/21 17:09 Dose: 2 mg Documented by: [id number] Discontinued Medications Potassium Chloride (K Lee / Wtr) 10 meq in 100 mls @ 100 mls/hr IV Q1H KALPANA Stop: 01/18/21 04:14 Last Infusion: 01/18/21 04:55 Dose: 0 mls/hr Documented by: [id number] Admin: 01/18/21 03:51 Dose: 100 mls/hr Documented by: [id number] Infusion: 01/18/21 03:51 Dose: 0 mls/hr Documented by: [id number] Admin: 01/18/21 02:50 Dose: 100 mls/hr Documented by: [id number] Sodium Chloride (Nss) 250 mls @ 999 mls/hr IV .Q16M ONE Stop: 01/18/21 02:22 Last Infusion: 01/18/21 04:38 Dose: 0 mls/hr Documented by: [id number] Admin: 01/18/21 02:55 Dose: 999 mls/hr Documented by: [id number] Sodium Chloride (Nss 1000ml) 1,000 mls @ 999 mls/hr IV .Q1H1M ONE Stop: 01/18/21 03:17 Last Infusion: 01/18/21 02:55 Dose: 0 mls/hr Documented by: [id number] Admin: 01/18/21 02:00 Dose: 999 mls/hr Documented by: [id number] Doxycycline Hyclate 100 mg/ (Dextrose) 110 mls @ 50 mls/hr IV NOW STA Stop: 01/18/21 06:59 Last Infusion: 01/18/21 07:19 Dose: 0 mls/hr Documented by: [id number] Admin: 01/18/21 05:12 Dose: 50 mls/hr Documented by: [id number] Cefepime HCl (Maxipime) 2,000 mg in 20 mls @ 5 mls/min IV NOW STA; Protocol Stop: 01/18/21 05:02 Last Admin: 01/18/21 05:06 Dose: 5 mls/min Documented by: [id number] Sodium Chloride (Nss) 500 mls @ 999 mls/hr IV .Q31M ONE Stop: 01/18/21 05:43 Last Infusion: 01/18/21 05:59 Dose: 0 mls/hr Documented by: [id number] Admin: 01/18/21 05:15 Dose: 999 mls/hr Documented by: [id number] Ceftriaxone Sodium 2,000 mg/ (Dextrose) 70 mls @ 140 mls/hr IV Q24H [facility]; Protocol Stop: 01/20/21 11:59 Last Infusion: 01/18/21 12:54 Dose: 0 mls/hr Documented by: [id number] Admin: 01/18/21 12:22 Dose: 140 mls/hr Documented by: [id number] Metoprolol Tartrate (Metoprolol Tartrate 1 Mg/Ml Vial) 5 mg IV NOW STA Stop: 01/18/21 02:07 Last Admin: 01/18/21 02:26 Dose: Not Given Documented by: [id number] Potassium Chloride (Potassium Chloride Crtab 20 Meq Tabcr) 40 meq PO NOW STA Stop: 01/18/21 08:27 Last Admin: 01/18/21 14:15 Dose: Not Given Documented by: [id number] Medical Decision Making Laboratory Data Result diagrams: 01/18/21 01:03 01/18/21 01:03 Lab Results 01/18/21 01/18/21 01/18/21 Range/Units 01:03 01:03 01:03 WBC 6.98 (4.8-10.8) K/uL RBC 5.80 (4.7-6.1) M/uL Hgb 16.2 (14.0-18.0) g/dL Hct 48.3 (42-52) % MCV 83.3 (80-100) fL MCH 27.9 (25-34) pg MCHC 33.5 (32-36) g/dL RDW Std Deviation 48.1 H (36.4-46.3) fL RDW Coeff of Scooter 16.0 H (11.5-14.5) % Plt Count 79 L (130-400) K/uL MPV 9.8 (7.4-10.4) fL Immature Gran % (Auto) 0.4 % Neut % (Auto) 79.5 % Lymph % (Auto) 10.7 % [place] % (Auto) 8.3 % Eos % (Auto) 1.0 % Baso % (Auto) 0.1 % Neut # (Auto) 5.54 (1.4-6.5) K/uL Lymph # (Auto) 0.75 L (1.2-3.4) K/uL [place] # (Auto) 0.58 (0.11-0.59) K/uL Eos # (Auto) 0.07 (0-0.5) K/uL Baso # (Auto) 0.01 (0-0.2) K/uL Immature Gran # (Auto) 0.03 H (0.00-0.02) K/uL Platelet Estimate Decreased L (Normal) PT 18.9 H (9.0-12.0) Seconds INR 2.0 H (0.9-1.1) APTT 31.0 (21.0-31.0) Seconds PTT Ratio 1.2 Sodium 142 (136-145) mmol/L Potassium 3.2 L (3.5-5.1) mmol/L Chloride 109 H (98-107) mmol/L Carbon Dioxide 25 (21-32) mmol/L Anion Gap 8.0 (3-11) BUN 22 H (7-18) mg/dl Creatinine 1.53 H (0.6-1.4) mg/dl Est Cr Clr Drug Dosing 56.3 ml/min Est GFR ( Amer) 50.8 ml/min Est GFR (Non-Af Amer) 43.8 ml/min BUN/Creatinine Ratio 14.3 (10-20) Glucose 111 H (70-99) mg/dl Lactate (0.4-2.0) mmol/L Calcium 9.1 (8.5-10.1) mg/dl Total Bilirubin 1.9 H (0.2-1) mg/dl AST 27 (15-37) U/L ALT 19 (12-78) U/L Alkaline Phosphatase 57 (45-117) U/L NT-Pro-B Natriuret Pep (0-900) pg/ml Total Protein 7.1 (6.4-8.2) gm/dl Albumin 3.2 L (3.4-5.0) gm/dl Globulin 3.9 (2.5-4.0) gm/dl Albumin/Globulin Ratio 0.8 L (0.9-2) Procalcitonin (0-0.5) ng/ml Urine Color Urine Appearance (Clear) Urine pH (4.5-7.5) Ur Specific [place] (1.000-1.030) Urine Protein (Negative) Urine Glucose (UA) (Negative) Urine Ketones (Negative) Urine Blood (Negative) Urine Nitrite (Negative) Urine Bilirubin (Negative) Urine Urobilinogen (Negative) Ur Leukocyte Esterase (Negative) Anaplasma Smear Babesia Smear Lyme Disease IgG Ab (Negative) Lyme Disease IgM Ab (Negative) COVID-19 Eval Order SARS-CoV-2 (PCR) (Negative) 01/18/21 01/18/21 01/18/21 Range/Units 01:03 01:03 02:38 WBC (4.8-10.8) K/uL RBC (4.7-6.1) M/uL Hgb (14.0-18.0) g/dL Hct (42-52) % MCV (80-100) fL MCH (25-34) pg MCHC (32-36) g/dL RDW Std Deviation (36.4-46.3) fL RDW Coeff of Scooter (11.5-14.5) % Plt Count (130-400) K/uL MPV (7.4-10.4) fL Immature Gran % (Auto) % Neut % (Auto) % Lymph % (Auto) % [place] % (Auto) % Eos % (Auto) % Baso % (Auto) % Neut # (Auto) (1.4-6.5) K/uL Lymph # (Auto) (1.2-3.4) K/uL [place] # (Auto) (0.11-0.59) K/uL Eos # (Auto) (0-0.5) K/uL Baso # (Auto) (0-0.2) K/uL Immature Gran # (Auto) (0.00-0.02) K/uL Platelet Estimate (Normal) PT (9.0-12.0) Seconds INR (0.9-1.1) APTT (21.0-31.0) Seconds PTT Ratio Sodium (136-145) mmol/L Potassium (3.5-5.1) mmol/L Chloride (98-107) mmol/L Carbon Dioxide (21-32) mmol/L Anion Gap (3-11) BUN (7-18) mg/dl Creatinine (0.6-1.4) mg/dl Est Cr Clr Drug Dosing ml/min Est GFR ( Amer) ml/min Est GFR (Non-Af Amer) ml/min BUN/Creatinine Ratio (10-20) Glucose (70-99) mg/dl Lactate (0.4-2.0) mmol/L Calcium (8.5-10.1) mg/dl Total Bilirubin (0.2-1) mg/dl AST (15-37) U/L ALT (12-78) U/L Alkaline Phosphatase (45-117) U/L NT-Pro-B Natriuret Pep (0-900) pg/ml Total Protein (6.4-8.2) gm/dl Albumin (3.4-5.0) gm/dl Globulin (2.5-4.0) gm/dl Albumin/Globulin Ratio (0.9-2) Procalcitonin (0-0.5) ng/ml Urine Color Urine Appearance (Clear) Urine pH (4.5-7.5) Ur Specific [place] (1.000-1.030) Urine Protein (Negative) Urine Glucose (UA) (Negative) Urine Ketones (Negative) Urine Blood (Negative) Urine Nitrite (Negative) Urine Bilirubin (Negative) Urine Urobilinogen (Negative) Ur Leukocyte Esterase (Negative) Anaplasma Smear See Comment Babesia Smear See Comment Lyme Disease IgG Ab Negative (Negative) Lyme Disease IgM Ab Negative (Negative) COVID-19 Eval Order Cov[facility] at [facility] SARS-CoV-2 (PCR) (Negative) 01/18/21 01/18/21 01/18/21 Range/Units 02:38 03:53 04:40 WBC (4.8-10.8) K/uL RBC (4.7-6.1) M/uL Hgb (14.0-18.0) g/dL Hct (42-52) % MCV (80-100) fL MCH (25-34) pg MCHC (32-36) g/dL RDW Std Deviation (36.4-46.3) fL RDW Coeff of Scooter (11.5-14.5) % Plt Count (130-400) K/uL MPV (7.4-10.4) fL Immature Gran % (Auto) % Neut % (Auto) % Lymph % (Auto) % [place] % (Auto) % Eos % (Auto) % Baso % (Auto) % Neut # (Auto) (1.4-6.5) K/uL Lymph # (Auto) (1.2-3.4) K/uL [place] # (Auto) (0.11-0.59) K/uL Eos # (Auto) (0-0.5) K/uL Baso # (Auto) (0-0.2) K/uL Immature Gran # (Auto) (0.00-0.02) K/uL Platelet Estimate (Normal) PT (9.0-12.0) Seconds INR (0.9-1.1) APTT (21.0-31.0) Seconds PTT Ratio Sodium (136-145) mmol/L Potassium (3.5-5.1) mmol/L Chloride (98-107) mmol/L Carbon Dioxide (21-32) mmol/L Anion Gap (3-11) BUN (7-18) mg/dl Creatinine (0.6-1.4) mg/dl Est Cr Clr Drug Dosing ml/min Est GFR ( Amer) ml/min Est GFR (Non-Af Amer) ml/min BUN/Creatinine Ratio (10-20) Glucose (70-99) mg/dl Lactate 2.3 H* (0.4-2.0) mmol/L Calcium (8.5-10.1) mg/dl Total Bilirubin (0.2-1) mg/dl AST (15-37) U/L ALT (12-78) U/L Alkaline Phosphatase (45-117) U/L NT-Pro-B Natriuret Pep (0-900) pg/ml Total Protein (6.4-8.2) gm/dl Albumin (3.4-5.0) gm/dl Globulin (2.5-4.0) gm/dl Albumin/Globulin Ratio (0.9-2) Procalcitonin (0-0.5) ng/ml Urine Color Dark Yellow Urine Appearance Clear (Clear) Urine pH 5.0 (4.5-7.5) Ur Specific [place] 1.013 (1.000-1.030) Urine Protein Negative (Negative) Urine Glucose (UA) Negative (Negative) Urine Ketones Trace H (Negative) Urine Blood Negative (Negative) Urine Nitrite Negative (Negative) Urine Bilirubin Negative (Negative) Urine Urobilinogen Negative (Negative) Ur Leukocyte Esterase Negative (Negative) Anaplasma Smear Babesia Smear Lyme Disease IgG Ab (Negative) Lyme Disease IgM Ab (Negative) COVID-19 Eval Order SARS-CoV-2 (PCR) NEGATIVE (Negative) 01/18/21 01/18/21 01/18/21 Range/Units 06:05 06:05 06:05 WBC (4.8-10.8) K/uL RBC (4.7-6.1) M/uL Hgb (14.0-18.0) g/dL Hct (42-52) % MCV (80-100) fL MCH (25-34) pg MCHC (32-36) g/dL RDW Std Deviation (36.4-46.3) fL RDW Coeff of Scooter (11.5-14.5) % Plt Count (130-400) K/uL MPV (7.4-10.4) fL Immature Gran % (Auto) % Neut % (Auto) % Lymph % (Auto) % [place] % (Auto) % Eos % (Auto) % Baso % (Auto) % Neut # (Auto) (1.4-6.5) K/uL Lymph # (Auto) (1.2-3.4) K/uL [place] # (Auto) (0.11-0.59) K/uL Eos # (Auto) (0-0.5) K/uL Baso # (Auto) (0-0.2) K/uL Immature Gran # (Auto) (0.00-0.02) K/uL Platelet Estimate (Normal) PT (9.0-12.0) Seconds INR (0.9-1.1) APTT (21.0-31.0) Seconds PTT Ratio Sodium (136-145) mmol/L Potassium (3.5-5.1) mmol/L Chloride (98-107) mmol/L Carbon Dioxide (21-32) mmol/L Anion Gap (3-11) BUN (7-18) mg/dl Creatinine (0.6-1.4) mg/dl Est Cr Clr Drug Dosing ml/min Est GFR ( Amer) ml/min Est GFR (Non-Af Amer) ml/min BUN/Creatinine Ratio (10-20) Glucose (70-99) mg/dl Lactate 2.1 H* (0.4-2.0) mmol/L Calcium (8.5-10.1) mg/dl Total Bilirubin (0.2-1) mg/dl AST (15-37) U/L ALT (12-78) U/L Alkaline Phosphatase (45-117) U/L NT-Pro-B Natriuret Pep 2861 H (0-900) pg/ml Total Protein (6.4-8.2) gm/dl Albumin (3.4-5.0) gm/dl Globulin (2.5-4.0) gm/dl Albumin/Globulin Ratio (0.9-2) Procalcitonin 12.99 H (0-0.5) ng/ml Urine Color Urine Appearance (Clear) Urine pH (4.5-7.5) Ur Specific [place] (1.000-1.030) Urine Protein (Negative) Urine Glucose (UA) (Negative) Urine Ketones (Negative) Urine Blood (Negative) Urine Nitrite (Negative) Urine Bilirubin (Negative) Urine Urobilinogen (Negative) Ur Leukocyte Esterase (Negative) Anaplasma Smear Babesia Smear Lyme Disease IgG Ab (Negative) Lyme Disease IgM Ab (Negative) COVID-19 Eval Order SARS-CoV-2 (PCR) (Negative) Imaging Data Radiologist's Impression: Chest X-Ray 01/18/21 01:16 XR chest 1V portable INDICATION: MN ^Y ^short of breath. TECHNIQUE: Single frontal radiograph of the chest was obtained. Comparison: Comparison is made to chest one view 12/12/2017 FINDINGS: Exam is limited by underpenetration. No lines and tubes are seen. The aorta is tortuous. The remainder of the cardiomediastinal silhouette is unremarkable. The lungs are clear. No evidence of pleural effusion or pneumothorax. IMPRESSION: No acute chest disease. ACT 112: Negative or not required by law. Electronically signed by: Yan Gao M.D. 01/18/2021 9:06 AM Discharge Plan Visit Data Chief Complaint: Illness Stated Complaint: ILLNESS/COVID EXPOSURE ED Provider: Sandy Freeman Patient Disposition: Admitted As Inpatient Discharge Instructions Interventions: ED Discharge Assessment Last Done: 01/18/21 12:58
[2021-01-18] MEDS: ASPIRIN 81 MG ECTAB PO SCH (21:19)
[2021-01-19] MEDS ORDERED: SODIUM CHLORIDE 0.9% 1000ML 1,000 ML IV ONE (01:21)
[2021-01-19] MEDS: DOXYCYCLINE HYCLATE 100 MG in DEXTROSE 5% 100 ML IV SCH ×2 (05:13→17:26)
--- NOTE | 2021-01-19 06:07 | Billing Data ---
Date of Service January 19, 2021 Coding Level of Care Code INT OBSERVATION CARE 70M LVL 3
[2021-01-19] MEDS ORDERED: Nursing to Pharmacy Communication SCH (06:30)
--- NOTE | 2021-01-19 06:31 | Electrocardiogram Report ---
Test Reason : Blood Pressure : / mmHG Vent. Rate : 139 BPM Atrial Rate : 139 BPM P-R Int : 000 ms QRS Dur : 080 ms QT Int : 388 ms P-R-T Axes : 000 -48 057 degrees QTc Int : 590 ms Supraventricular tachycardia with occasional Premature ventricular complexes Left anterior fascicular block Possible Anterolateral infarct Abnormal ECG When compared with ECG of 10-JUN-2018 15:33, Premature ventricular complexes are now Present Premature atrial complexes are no longer Present Vent. rate has increased BY 69 BPM QRS axis Shifted left Borderline criteria for Anterolateral infarct are now Present Confirmed by Jurgen Eaton ([id number] on 01/19/2021 6:31:25 AM Referred By: REFERRED SELF Confirmed By:Jurgen Eaton
[2021-01-19] MEDS: SODIUM CHLORIDE 0.9% 1000ML 1,000 ML IV SCH ×2 (07:20→17:21)
[2021-01-19 07:34] LABS: INR 2.1 (0.9-1.1); Prothrombin Time 20.2 Seconds (9.0-12.0)
[2021-01-19 07:36] LABS: Hematocrit (blood only) 39.4 % (42-52); Hemoglobin 12.6 g/dL (14.0-18.0); Mean Corpuscular Hemoglobin 27.2 pg (25-34); Mean Corpuscular Volume 84.9 fL (80-100); Platelet Count 72 K/uL (130-400); RDW Coefficient of Variation 16.7 % (11.5-14.5); RDW Standard Deviation 51.7 fL (36.4-46.3); Red Blood Count 4.64 M/uL (4.7-6.1)
[2021-01-19 08:06] LABS: Basophils # (auto) 0.01 K/uL (0-0.2); Basophils % (auto) 0.1 %; Eosinophils # (auto) 0.03 K/uL (0-0.5); Eosinophils % (auto) 0.3 %; Immature Granulocytes # (auto) 0.15 K/uL (0.00-0.02); Immature Granulocytes % (auto) 1.4 %; Lymphocytes # (auto) 0.85 K/uL (1.2-3.4); Lymphocytes % (auto) 8.2 %; Monocytes # (auto) 0.67 K/uL (0.11-0.59); Monocytes % (auto) 6.4 %; Neutrophils # (auto) 8.69 K/uL (1.4-6.5); Neutrophils % (auto) 83.6 %
[2021-01-19 08:19] LABS: Albumin Globulin Ratio 0.6 (0.9-2); BUN Creatinine Ratio 16.6 (10-20); Bilirubin,Total 0.8 mg/dl (0.2-1); Calcium 7.8 mg/dl (8.5-10.1); Creatinine Clr Calc Pharmacy 66.4 ml/min; Est GFR (African American) 61.3 ml/min; Est GFR (Non-African American) 52.9 ml/min; Globulin 3.4 gm/dl (2.5-4.0); Magnesium 1.8 mg/dl (1.8-2.4); Phosphorus 2.3 mg/dl (2.5-4.9); Potassium 3.7 mmol/L (3.5-5.1); Total Protein 5.4 gm/dl (6.4-8.2)
[2021-01-19] MEDS: carvediloL 12.5 MG TAB PO SCH ×2 (08:23→20:55)
[2021-01-19] MEDS ORDERED: POTASSIUM PHOS 3 MMOL/1 ML INFUSION IV STA (08:28)
[2021-01-19] MEDS ORDERED: POTASSIUM PHOSPHATE 21 MMOL in SODIUM CHLORIDE 0.9% 500 ML IV ONE (08:45)
[2021-01-19] MEDS ORDERED: MAGNESIUM SULFATE / D5W 1 GM/100 ML BAG IV ONE (08:45)
--- NOTE | 2021-01-19 10:01 | Medical Student Progress Note ---
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 Fever with fatigue, chills, malaise secondary to suspected tick-borne illness vs community-acquired PNA - crackles and rhonchi on auscultation, R lower lobe with more rhonchi than L lower lobe have resolved - chest x-ray, CT Chest with no acute findings - Echo EF 65%, last echo 2017 - monitor platelets w/ CBC, likely low due to infection - blood cultures showing 1 bottle of strep species, suspect contaminant, await cultures - Lyme, anaplasmosis, and babesiosis testing negative, however, with high false negative rate will continue to monitor patient while symptomatic. - Continue NSS 125ml/hr and supportive measures - Continue Doxycycline 100 mg IV BID and monitor symptoms closely, - Patient received 1 dose of Rocephin, since discontinued (PNA less likely) - PT and OT consult to increase strength and mobility Diarrhea: - 3 episodes since last night (2 last night, 1 this AM) likely due to antibiotics - continue IV fluids and eating heart-healthy diet - consider probiotic-containing foods like yogurt Hypertension -Continue home Carvedilol MISTI on CKD stage III -Creatinine on admission 1.53, base 1.1-1.2 - continue anti-hypertensives, is on carvedilol - monitor BMP including Creatinine daily - IVF hydration as above History of PE's -On warfarin therapy -INR of 2 on admission, 2.1 today -Continue to monitor throughout stay -Patient was therapeutic on admission, low suspicion for current PE -If concern worsens, consider CTA to r/o clots GERD -Continue home Lansoprazole BRITTNEY - continue CPAP use - encourage weight loss and nutritional changes (more fruits and veggies, heart- healthy diet) chronic venous insufficiency - compression stockings - encourage activity and walking around, good infection prevention (keep wounds and cuts clean) Anxiety -Well controlled on home medications -Continue home Venlafaxine, continue home xanax PRN Dispo: Med/Surg Telemetry for IV antibiotics, IVF, supportive care, and continuous cardiac monitoring. FEN/GI: Heart Healthy diet, NSS 125ml/hr DVT: Warfarin Code: DNR/DNI (2) Malaise: Plan: Fever with fatigue/malaise: - echo unremarkable, labs are stable - continue close monitoring and IV fluids - continue Doxycycline to cover potential tick-borne illness - blood cultures pending Diarrhea: - 3 episodes since last night (2 last night, 1 this AM) likely due to antibiotics - continue IV fluids and eating heart-healthy diet - consider probiotic-containing foods like yogurt Admission and Anticipated Discharge Date Admission Date: January 18, 2021 Supervising Attestation I personally examined the patient and verified all lindo points of history and exam, discussed case, and agree with decision making with Surendra Ortez MS2 Feeling much better. No chills today, they were far less in intensity yesterday. Feels fatigued and not well, but generally much better. Cough is gone, no shortness of breath/dyspnea on exertion, no new symptoms other than a bit of a dry throatwhich he attributes to having been on nasal cannula oxygen. Vitals noted, in general he is awake alert oriented pleasant no distress. HEENT normocephalic atraumatic mucous membranes moist. Breathing unlabored no accessory muscle use good effort. Skin shows no rashes no pallor or icterus. Neuro without focal deficits. Skin without rashes pallor or icterus. Septic picture/constitutional symptoms/rigorsetiology not overtly clearinitially concern on pneumonia, but clearly seems to be unfounded. Blood culture does appear to show gram-positive coccibut only 1 out of 2, will follow for further speciation, but doubt this is significant (probably contaminant), given prevalence in the region as well as the fact that he does a lot of outdoor work, tickborne such as anaplasmosis seems highly likely/highly probableeven more so now that he is showing improvement on doxycycline. Continue to follow, follow cultures, follow symptoms and labsbut as long as he shows ongoing improvement, and as long as it becomes clear that the blood culture is a contaminant, then hopefully home tomorrow. Otherwise as above Subjective Patient is feeling mildly improved this AM. He is still fatigued. He has a slight headache currently, but Tylenol has been helping overnight. He was unable to sleep for extended periods of time through the night due to vital checks. Notably, his BP was up and down last night and fever recorded to 101 degrees F. He had no chills. He isn't as cold as yesterday and is no longer shaking. 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 Overnight, he had 1 bowel movement and 2 this morning, all were diarrhea. He had no bowel movements yesterday. His appetite remains lower than usual, but with no nausea or vomiting. Patient did share with me that his dog licks at the cuts on his legs. He states that whenever he bumps into something, he finds scabs where he banged himself. Review of Systems Review of Systems: All systems reviewed & are unremarkable except as noted in HPI & below Constitutional: + fatigue decreased appetite, diarrhea Eyes: as per Subjective / HPI Respiratory: + dyspnea Cardiovascular: as per Subjective / HPI Gastrointestinal: + diarrhea/loose stools Genitourinary: + as per Subjective / HPI Musculoskeletal: as per Subjective / HPI Integumentary: as per Subjective / HPI Neurologic: as per Subjective / HPI Psychiatric: as per Subjective / HPI Endocrine: as per Subjective / HPI Hematologic / Lymphatic: as per Subjective / HPI Allergy / Immunological: as per Subjective / HPI Physical Exam Constitutional: WD/WN, vitals as above well developed, well nourished, + obese, well groomed, cooperative and comfortable Eyes: PERRL, conjunctivae normal, anicteric sclerae ENMT: external ear and nose normal, oropharynx normal Neck: trachea midline, no thyromegaly Respiratory: normal respiratory effort, lungs clear to auscultation rales, crackles, and rhonchi are diminished from yesterday Cardiovascular: RRR, no murmur, no edema Heart Sounds: normal S1 and normal S2 Vessels: normal peripheral pulses pedal edema +1 bilaterally Gastrointestinal (Abdomen): normal bowel sounds, soft, nontender, no hepatosplenomegaly Musculoskeletal: no cyanosis or clubbing, extremities motor strength 5/5 Skin: no rashes, warm and dry + lesion (multiple lesions at different stages of healing bilateral lower extremities) Neurologic: PERRL, EOMI, accommodation nl, no face palsy, no dysarthria normal touch/pain/proprioception Psychiatric: A+Ox3, euthymic affect Lymphatic: no cervical or axillary lymphadenopathy Results & Data ([facility]) Vital Signs (Past 12 Hours) Vital Signs Temp Pulse Pulse Resp BP BP BP 01/19/21 07:28 36.8 C 73 20 103/66 01/19/21 07:21 75 01/19/21 03:39 36.8 C 78 18 101/65 01/19/21 01:39 37.2 C 01/19/21 00:45 38.5 C H 87 16 99/66 L 01/18/21 23:55 137 H 130/82 01/18/21 23:53 137 H 01/18/21 23:36 150 H 01/18/21 22:52 37.3 C 130 H 18 130/82 01/18/21 22:19 95 H Pulse Ox 01/19/21 07:28 95 01/19/21 07:21 01/19/21 03:39 96 01/19/21 01:39 01/19/21 00:45 94 01/18/21 23:55 01/18/21 23:53 01/18/21 23:36 01/18/21 22:52 92 01/18/21 22:19
[2021-01-19] MEDS: LANSOPRAZOLE 15 MG SOLTAB PO SCH (10:02)
[2021-01-19] MEDS: VENLAFAXINE HCL 37.5 MG TAB PO SCH ×2 (10:03→20:54)
[2021-01-19] MEDS ORDERED: WARFARIN SOD 3 MG TAB PO SCH (16:00)
--- NOTE | 2021-01-19 17:22 | Billing Data ---
Date of Service January 19, 2021 Coding Level of Care Code 07827 Subseq Hosp Care Lvl 3
[2021-01-19] MEDS: ASPIRIN 81 MG ECTAB PO SCH (20:54)
[2021-01-20] MEDS: SODIUM CHLORIDE 0.9% 1000ML 1,000 ML IV SCH ×2 (01:35→09:42)
--- NOTE | 2021-01-20 05:23 | Electrocardiogram Report ---
Test Reason : Blood Pressure : / mmHG Vent. Rate : 091 BPM Atrial Rate : 091 BPM P-R Int : 156 ms QRS Dur : 080 ms QT Int : 342 ms P-R-T Axes : 035 -21 019 degrees QTc Int : 420 ms Normal sinus rhythm Low voltage QRS Borderline ECG When compared with ECG of 18-JAN-2021 00:47, Premature ventricular complexes are no longer Present Vent. rate has decreased BY 48 BPM Borderline criteria for Anterolateral infarct are no longer Present Confirmed by Jurgen Eaton ([id number]) on 01/20/2021 5:23:08 AM Referred By: REFERRED SELF Confirmed By:Jurgen Eaton
[2021-01-20] MEDS: DOXYCYCLINE HYCLATE 100 MG in DEXTROSE 5% 100 ML IV SCH (06:07)
[2021-01-20 06:38] LABS: INR 1.7 (0.9-1.1); Prothrombin Time 16.5 Seconds (9.0-12.0)
[2021-01-20 08:13] LABS: Hematocrit (blood only) 37.1 % (42-52); Hemoglobin 12.2 g/dL (14.0-18.0); Mean Corpuscular Hemoglobin 27.7 pg (25-34); Mean Corpuscular Hgb Conc 32.9 g/dL (32-36); Mean Corpuscular Volume 84.3 fL (80-100); RDW Coefficient of Variation 16.6 % (11.5-14.5); RDW Standard Deviation 51.8 fL (36.4-46.3); White Blood Count 7.27 K/uL (4.8-10.8)
[2021-01-20 08:18] LABS: Mean Platelet Volume 9.9 fL (7.4-10.4); Platelet Count 74 K/uL (130-400)
[2021-01-20 08:40] LABS: Calcium 7.9 mg/dl (8.5-10.1); Creatinine Clr Calc Pharmacy 91.5 ml/min; Eosinophils # (auto) 0.08 K/uL (0-0.5); Eosinophils % (auto) 1.1 %; Est GFR (African American) 90.4 ml/min; Immature Granulocytes # (auto) 0.01 K/uL (0.00-0.02); Immature Granulocytes % (auto) 0.1 %; Lymphocytes # (auto) 0.73 K/uL (1.2-3.4); Monocytes # (auto) 0.69 K/uL (0.11-0.59); Monocytes % (auto) 9.5 %; Neutrophils # (auto) 5.76 K/uL (1.4-6.5); Neutrophils % (auto) 79.3 %; Platelet Estimate CAC (Normal); Potassium 4.6 mmol/L (3.5-5.1)
[2021-01-20] MEDS: carvediloL 12.5 MG TAB PO SCH (09:38)
[2021-01-20] MEDS: LANSOPRAZOLE 15 MG SOLTAB PO SCH (09:39)
[2021-01-20] MEDS: VENLAFAXINE HCL 37.5 MG TAB PO SCH (09:39)
--- NOTE | 2021-01-20 11:42 | Ultrasound Report ---
ULTRASOUND RIGHT LOWER EXTREMITY VENOUS CLINICAL HISTORY: Right leg pain and swelling. COMPARISON STUDY: Right lower extremity venous ultrasound dated 12/03/2017 TECHNIQUE: Real-time, grayscale, and color Doppler sonography of the deep veins of the right lower ex tremity was performed from the inguinal crease to the calf. Compression and augmentation were utilize d. FINDINGS: There is age indeterminant but chronic appearing nonocclusive deep venous thrombosis identi fied in the common femoral vein, the proximal and distal portions of the superficial femoral vein, an d the popliteal vein. The greater saphenous vein and the profunda femoris vein at the junction with t he common femoral vein are clear. The visualized calf veins are patent. A popliteal cyst measures 4.2 x 1.0 x 3.8 cm. There are enlarged right inguinal lymph nodes. The largest measures 4.5 x 1.0 x 4.0 cm. IMPRESSION: 1. There is age indeterminant but chronic appearing nonocclusive thrombus within the common femoral, superficial femoral, and popliteal veins as above. This is new from the 2018 dilatation. 2. Popliteal cyst. 3. Enlarged right inguinal lymph nodes may be reactive. Clinical correlation will be required. ACT 112: Negative or not required by law. Electronically signed by: Bennie Henderson M.D. 01/20/2021 11:41 AM
[2021-01-20] MEDS ORDERED: WARFARIN SOD 5 MG TAB PO ONE (12:30)
[2021-01-20] MEDS: WARFARIN SOD 2 MG TAB PO SCH (15:51)
--- NOTE | 2021-01-20 19:10 | Discharge Summary ---
Date of Service January 20, 2021 Admission HPI Per Admitting Provider Julius Bauer is a 75-year-old male with PMH significant for for pulmonary embolisms on warfarin anticoagulation, chronic kidney disease stage III, hypertension, GERD; who presents for concern of worsening illness over the last day. Over the last day has had concerns for worsening fevers, chills, sweats, fatigue, and winded/short of breath. No history was going to ignore it however ultimately called EMS given his continued symptoms overnight. No recent sick contacts that he can identify. Spends a considerable portion of his time outdoors gardening. In the ED worked up for tickborne illnesses given high prevalence in local areas of tickborne disease. Admission Exam Per Admitting Provider Constitutional: + frail appearing, + disheveled and + diaphoretic Eyes: PERRL, conjunctivae normal, anicteric sclerae Respiratory: normal respiratory effort; no respiratory distress, no labored breathing, no retractions and does not use accessory muscles Auscultation: + diminished lung sounds and + rhonchi (Coarse over whole field bilaterally); breath sounds present, no rales and no wheezes Cardiovascular: Rate/Rhythm: regular rate and regular rhythm Heart Sounds: no gallop, no murmur and no cardiac rub Vessels: normal peripheral pulses; no JVD Extremities: + edema Gastrointestinal (Abdomen): Inspection/Auscultation: normal bowel sounds; abdomen not distended Percussion/Palpation: abdomen soft; abdomen nontender and no guarding Musculoskeletal: no cyanosis or clubbing, extremities motor strength 5/5 Skin: Chronic appearing venous stasis changes to bilateral lower extremities, old eschar over right lower extremity Psychiatric: Orientation: alert and oriented x 3 Principal Diagnosis tick borne illness Discharge Exam GENERAL: No acute distress. Well developed and well nourished. Vital signs reviewed as above. HENT: Moist mucous membranes. RESPIRATORY: Clear to auscultation bilaterally. No wheezing, rales, or rhonchi. CARDIOVASCULAR: Regular rate and rhythm. No murmurs. ABDOMEN: Soft, non-tender and non-distended. Normal bowel sounds. EXTREMITIES: Chronic venous stasis changes. RLE with increased edema and tenderness to palpation. SKIN: Warm, dry. Multiple healing ulcerations to right gil. NEUROLOGIC: A/O x3. No focal neurological deficits. PSYCHIATRIC: Cooperative. Appropriate mood and affect. Discharge Data Allergies Allergy/AdvReac Type Severity Reaction Status Date / Time No Known Allergies Allergy Verified 01/18/21 01:37 Consultations 01/18/21 05:03 ED Decision to Admit Stat Ordered Studies 01/18/21 12:01 CT chest diagnostic wo con Urgent 01/20/21 09:28 US venous doppler LE RT Routine Hospital Course (1) Tick-borne disease: Julius Santana is a 75 yo man with PMHx of pulmonary embolisms on warfarin, obstructive sleep apnea on CPAP, CKD stage III, HTN, prediabetes, chronic venous insufficiency, colon cancer s/p surgical resection 1992, TIA, anxiety and restless leg syndrome presented to the ED with 1 day history of fatigue, fever, chills, and sweating. Suspected tick-borne illness w/ fever, fatigue, chills, malaise - Initially suspected tick-borne illness vs. CAP - CXR - Chest CT - Echo EF 65%, last echo 2017 - Blood cultures showing 1 bottle of strep species, suspect contaminant - Repeat blood cultures drawn on day of discharge, pending - Lyme, anaplasmosis, and babesiosis testing negative; however, testing occurred 1 day after onset of symptoms and concern for high false negative rate - Therefore, have discussed with patient and decided to tx patient with doxycycline for total of 14 day therapy - Patient received 1 dose of Rocephin, since discontinued when PNA ruled out Diarrhea, resolved - 3 episodes during one day of hospitalization, likely due to antibiotics - Received IVF with resolution of symptoms Hypertension -Continue home Carvedilol MISTI on CKD stage III - Creatinine on admission 1.53, base 1.1-1.2 - Resolved prior to discharge; Cr on day of discharge 0.95 History of PE's -On warfarin therapy -INR of 2 on admission, decreased to 1.7 on day of discharge - Due to worsening RLE swelling, pain, and decrease in warfarin therapy, RLE doppler checked 01/20 -- There is age indeterminant but chronic appearing nonocclusive thrombus within the common femoral, superficial femoral, and popliteal veins as above. This is new from the 2018 dilatation. GERD -Continue home Lansoprazole BRITTNEY - continue CPAP use - encourage weight loss and nutritional changes (more fruits and veggies, heart- healthy diet) chronic venous insufficiency - compression stockings - encourage activity and walking around, good infection prevention (keep wounds and cuts clean) Anxiety -Well controlled on home medications -Continue home Venlafaxine, continue home xanax PRN (2) Fever: (3) Malaise: (4) Chronic kidney disease, stage 3 (moderate): (5) Chronic venous insufficiency: (6) GERD (gastroesophageal reflux disease): (7) Obstructive sleep apnea syndrome: (8) History of pulmonary embolus (PE): (9) Acute kidney injury: (10) Essential hypertension: Total Time Total Time Spent Total Time Spent (In Minutes): Greater than 30 Discharge Plan Discharge Items Patient Disposition: Home - Self-Care Reason For Visit: DYSPNEA 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 Bauer, It was our pleasure caring for you at [facility] from 01/18- 01/20/21 for your recent illness, suspected to be tick-borne related Anaplasmosis. While here you underwent testing for Tick-Borne diseases, serious blood infections, pneumonia. Although your tick-born disease labs returned as normal, there is high suspision that these tests were falsely negative, specifically Anaplasmosis, due to the short initial duration of your symptoms. You were started on IV antibiotics and improved significantly. You are being discharged now on the same antibiotic in oral form. Your blood culture did also show a single positive organism growth, but we suspect this is contaminant from your regular skin bacteria. A repeat culture was taken prior to your discharge and you will be called if there are any concerning growths. Lastly, your INR was found to be low at 1.7 before your discharge. You were given an extra 5mg dose of Coumadin prior to discharge. Please see below for further instructions. -An antibiotic Doxycycline 100mg was sent to your pharmacy. Please take this twice a day for the next 12 days. -Please continue to take your home medications as prescribed -Please follow up with your PCP in the next 3-5 days -If your symptoms worsen, please return to the ED for reevaluation. Pending Studies at Discharge: No Stand-Alone Forms: My [facility], Smoking Cessation Medications and DC Order Prescriptions: New doxycycline hyclate 100 mg capsule 100 mg PO BID 12 Days Qty: 24 RF: 0 Continued aspirin [Adult Aspirin Regimen] 81 mg tablet,delayed release (DR/EC) 81 mg PO HS RF: 0 Men's 50 Plus Multivitamin 400-20-370 mcg tablet 1 tab PO 3XWK RF: 0 lansoprazole 15 mg capsule,delayed release(DR/EC) 15 mg PO DAILY Qty: 90 RF: 2 venlafaxine 37.5 mg tablet 37.5 mg PO BID Qty: 180 RF: 1 alprazolam [Xanax] 0.5 mg tablet 0.5 mg PO BID PRN (Reason: anxiety) Qty: 60 RF: 0 carvedilol 12.5 mg tablet 12.5 mg PO BID Qty: 180 RF: 1 warfarin 2 mg tablet See Rx Instructions PO UD Qty: 90 RF: 1 acetaminophen 650 mg tablet extended release 650 mg PO QID PRN (Reason: FEVER/PAIN) RF: 0 (DME) CPAP Machine Misc See Rx Instructions .MEDSUPPLY Qty: 1 RF: 0 calcium carbonate-vitamin D3 500 mg(1,250mg) -125 unit Tablet 1 tab PO DAILY RF: 0 Discharge Orders: Discharge Order (Routine); Ordered 01/20/21 Ordered By: Liban oYder Admission Data Admit Date/Time: 01/19/21 17:21 Attending Provider: Brandon Power Admit Provider: Tam Hastings Primary Care Provider: Haydee Mondragon Other Providers: Donta Rogers Other Interventions: Discharge Summary Assessment (RN) Last Done: 01/20/21 12:37 Supervising Physician Co-Signing Physician Notes I personally examined the patient and verified all lindo points of history and exam, discussed case, and agree with decision making with Dr Flores feeling better feeling up to going home. leg a little more swollen than normal. discussed ddx/plans/etc in depth, answered all questions to the best of my ability. Portal up to going home. Vitals noted, in general he is awake and alert pleasant no distress. HEENT normocephalic atraumatic mucous membranes moist. Breathing unlabored no accessory muscle use good effort. Skin shows no rashes no pallor or icterus. Neuro without focal deficits. Septic picture/constitutional symptoms/rigorsetiology not overtly clearinitially concern on pneumonia, but clearly seems to be unfounded. Blood culture does appear to show gram-positive coccibut only 1 out of 2, and is very likely a contaminantappears to be a strep that is similar from a surface culture he had from about a year agomaking it even more likely it is just part of his skin nicole not an actual infectionto be safe repeat cultures were checked, but further the sensitivities are such that the most similar antibiotics to the doxycycline he is on it was resistant to, and he got better, making it even less likely he has any bacteremia. We discussed this though and should anything worsen/should his repeat cultures actually show growth, we will bring him back to the hospital for further treatment, but this seems to be highly unlikely., Strongly suspect tickbornemost likely anaplasmosisgiven his symptom complex, thrombocytopenia, and the overall prevalence of anaplasmosis in this region. Treat for 14 days with doxycycline, stable for home. Chronic appearing DVT with known venous thromboembolic diseaseon Coumadinslightly subtherapeutic todaygive additional Coumadin, resume home dosing. INR on Sunday. Otherwise as above Resident Activity Tracking Resident Involvement: Resident Care Provided Care Provided: Adult Hospital Medicine
--- NOTE | 2021-01-20 19:33 | Billing Data ---
Date of Service January 20, 2021 Coding Level of Care Code 40792 Subseq Hosp Care Lvl 3
[2021-01-22 10:36] LABS: Babesia microti DNA Not Detected (Not Detected)
--- NOTE | 2021-01-23 10:42 | Emergency Department Note ---
Impression & Plan Febrile illness, acute, Warfarin anticoagulation, Thrombocytopenia, Elevated lactic acid level ED Provider Note CHIEF COMPLAINT: Weakness, fever, chills, shortness of breath, nausea HISTORY OF PRESENT ILLNESS: This 75-year-old male patient presents to the emergency department by ambulance with complaints of fevers, chills, weakness, shortness of breath and nausea that woke him up from sleep at approximately 5 AM. Patient states he has a history of atrial fibrillation and is anticoagulate d on Coumadin. He does believe he had a Covid exposure but nobody else at home is ill. He denies any vomiting or diarrhea. He states he is fatigued. He denies chest pain or abdominal pain at this time. REVIEW OF SYSTEMS: A review of systems was performed with positives and pertinent negatives listed in the history of present illness. 10 systems were reviewed and are otherwise negative. ALLERGIES: See Below MEDICATIONS: See Below PMH: See below SOCIAL HISTORY: See below PHYSICAL EXAM: Vital signs reviewed. General: Somewhat chronically ill -appearing 75-year-old male, in no significant distress. HEENT: No scleral icterus, PERRLA, neck supple. Atraumatic. Cardiovascular: Regular rate and rhythm, no extra sounds. Pulmonary: Clear to auscultation bilaterally, normal work of breathing. Abdomen: Soft, obese, nontender, nondistended, positive bowel sounds. Musculoskeletal: Atraumatic, no peripheral edema. Neurologic: Patient awake alert and oriented x3, speech is clear. Follows commands Skin: Warm, dry, no rash EMERGENCY DEPARTMENT COURSE: This patient was evaluated and appeared to be in no significant distress. IV access was obtained and laboratory work was drawn. Patient was placed on a cardiac specialist and noted to be in tachycardia (sinus vs atrial flutter) at 130 bpm. Patient was hydrated with normal saline solution, given IV cefepime after blood cultures were obtained. Metoprolol intravenously was administered for rate control. The patient was given p.o. potassium. Lactic acid is noted to be 2.1. Patient is also noted to be thrombocytopenic. Lyme titers are negative. Patient presents similar to an anaplasmosis and when asked, states he [place] most of [place] Patient's case was discussed with the hospitalist, Dr. Smallwood who will evaluate the patient for admission and further management. MONITORING: An order for cardiac monitoring was placed and the patient is noted to be in a sinus tachycardia vs atrial flutter at 130 beats per minute. RADIOLOGY: See below EKG: Sinus tachycardia at 139 bpm, nonspecific ST changes. Occasional PVC, left anterior fascicular block, possible anterior lateral infarct. Prolonged QT interval. DIAGNOSIS: Elevated lactic acid, thrombocytopenia, febrile illness, tachycardia Disposition: Evaluation by the hospitalist, admission I have personally spent 32 minutes of critical care time in the direct management of this patient. This was a life threatening event. This 32 minutes is in excess of all separately billable procedures. Past Med/Surg History Medical History Acute kidney injury Anxiety Cellulitis of right leg Chronic kidney disease, stage 3 (moderate) Chronic venous insufficiency DVT (deep venous thrombosis) Per patient, ~1997. 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 Essential hypertension GERD (gastroesophageal reflux disease) History of colon cancer History of pulmonary embolus (PE) History of TIA (transient ischemic attack) Lymphedema Obstructive sleep apnea syndrome Prediabetes Restless legs syndrome Tick-borne disease Vitamin D insufficiency Surgical History History of eyelid surgery History of tonsillectomy S/P partial colectomy (1992) Family History Unknown Hypertension Father Cancer Lung disease Mother Myocardial infarction Coronary heart disease Son BRITTNEY (obstructive sleep apnea) Denies family history of Ovarian cancer Prostate cancer Breast cancer Colorectal cancer Social History Smoking Status: Former smoker Age Started Using Tobacco: 12; packs per day: 2; Second Hand Exposure: No; Hx Alcohol Use: No Hx Substance Use: No Preferred Language: Kiswahili Communication Ability: Effective Visual Impairment: Severely Limited Hearing Ability: Normal Archivist Military History Required: No Beliefs That Will Affect Care: None marital status: Current Living Situation: Spouse Current Living Situation Comment: 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 occupational status: retired How many Children do You have: 1 How many Children do You have Comment: children are local and able to assist as needed Feels Safe at Home: Yes Diet Comment: has meals on wheels during the past year weight has: remained stable Dental Care, Regularly: No Physical Activity Frequency: 1-2 Times per Week Seatbelt Use: always Sunscreen Use: Yes Assistive Devices: Cane Allergies Allergies Allergy/AdvReac Type Severity Reaction Status Date / Time No Known Allergies Allergy Verified 01/21/21 16:42 Home Meds Home Medications Medication Instructions Recorded Confirmed aspirin 81 mg tablet,delayed 81 mg PO HS tab 12/21/17 01/21/21 release (Adult Aspirin Regimen) acetaminophen 650 mg 650 mg PO QID PRN tab 01/22/19 01/21/21 tablet,extended release zygnttefmvgx-izo-[id number] acid-vit 1 tab PO [id number] tab 12/01/20 01/21/21 K-lycop 400 mcg-20 mcg-370 mcg tablet (Men's 50 Plus Multivitamin) calcium carbonate 500 mg (1,250 1 tab PO DAILY 01/18/21 01/21/21 mg)-vitamin D3 125 unit tablet Previous Rx's Medication Instructions Recorded CPAP Machine #1 ea 01/01/20 lansoprazole 15 mg capsule,delayed 15 mg PO DAILY #90 cap 07/22/20 release venlafaxine 37.5 mg tablet 37.5 mg PO BID #180 tab 11/24/20 carvedilol 12.5 mg tablet 12.5 mg PO BID #180 tab 12/29/20 warfarin 2 mg tablet See Rx Instructions PO UD #90 tab 01/12/21 doxycycline hyclate 100 mg capsule 100 mg PO BID 12 Days #24 cap 01/20/21 alprazolam 0.5 mg tablet (Xanax) 0.5 mg PO BID PRN #60 tab 01/21/21 cephalexin 500 mg capsule 500 mg PO Q8H 6 Days #18 cap 01/22/21 Results & Data (ED) Home Medications Current Medication List: was personally reviewed by me Laboratory Data Attestation: I reviewed the patient's lab results. Result diagrams: 01/20/21 06:06 01/20/21 06:06 Lab Results 01/18/21 01/18/21 01/18/21 Range/Units 01:03 01:03 01:03 WBC 6.98 (4.8-10.8) K/uL RBC 5.80 (4.7-6.1) M/uL Hgb 16.2 (14.0-18.0) g/dL Hct 48.3 (42-52) % MCV 83.3 (80-100) fL MCH 27.9 (25-34) pg MCHC 33.5 (32-36) g/dL RDW Std Deviation 48.1 H (36.4-46.3) fL RDW Coeff of Scooter 16.0 H (11.5-14.5) % Plt Count 79 L (130-400) K/uL MPV 9.8 (7.4-10.4) fL Immature Gran % (Auto) 0.4 % Neut % (Auto) 79.5 % Lymph % (Auto) 10.7 % [place] % (Auto) 8.3 % Eos % (Auto) 1.0 % Baso % (Auto) 0.1 % Neut # (Auto) 5.54 (1.4-6.5) K/uL Lymph # (Auto) 0.75 L (1.2-3.4) K/uL [place] # (Auto) 0.58 (0.11-0.59) K/uL Eos # (Auto) 0.07 (0-0.5) K/uL Baso # (Auto) 0.01 (0-0.2) K/uL Immature Gran # (Auto) 0.03 H (0.00-0.02) K/uL Platelet Estimate Decreased L (Normal) PT 18.9 H (9.0-12.0) Seconds INR 2.0 H (0.9-1.1) APTT 31.0 (21.0-31.0) Seconds PTT Ratio 1.2 Sodium 142 (136-145) mmol/L Potassium 3.2 L (3.5-5.1) mmol/L Chloride 109 H (98-107) mmol/L Carbon Dioxide 25 (21-32) mmol/L Anion Gap 8.0 (3-11) BUN 22 H (7-18) mg/dl Creatinine 1.53 H (0.6-1.4) mg/dl Est Cr Clr Drug Dosing 56.3 ml/min Est GFR ( Amer) 50.8 ml/min Est GFR (Non-Af Amer) 43.8 ml/min BUN/Creatinine Ratio 14.3 (10-20) Glucose 111 H (70-99) mg/dl Lactate (0.4-2.0) mmol/L Calcium 9.1 (8.5-10.1) mg/dl Phosphorus (2.5-4.9) mg/dl Magnesium (1.8-2.4) mg/dl Total Bilirubin 1.9 H (0.2-1) mg/dl AST 27 (15-37) U/L ALT 19 (12-78) U/L Alkaline Phosphatase 57 (45-117) U/L NT-Pro-B Natriuret Pep (0-900) pg/ml Total Protein 7.1 (6.4-8.2) gm/dl Albumin 3.2 L (3.4-5.0) gm/dl Globulin 3.9 (2.5-4.0) gm/dl Albumin/Globulin Ratio 0.8 L (0.9-2) Procalcitonin (0-0.5) ng/ml Urine Color Urine Appearance (Clear) Urine pH (4.5-7.5) Ur Specific [place] (1.000-1.030) Urine Protein (Negative) Urine Glucose (UA) (Negative) Urine Ketones (Negative) Urine Blood (Negative) Urine Nitrite (Negative) Urine Bilirubin (Negative) Urine Urobilinogen (Negative) Ur Leukocyte Esterase (Negative) Anaplasma Smear Babesia Smear Babesia microti DNA PCR (Not Detected) Lyme Disease IgG Ab (Negative) Lyme Disease IgM Ab (Negative) COVID-19 Eval Order SARS-CoV-2 (PCR) (Negative) 01/18/21 01/18/21 01/18/21 Range/Units 01:03 01:03 02:38 WBC (4.8-10.8) K/uL RBC (4.7-6.1) M/uL Hgb (14.0-18.0) g/dL Hct (42-52) % MCV (80-100) fL MCH (25-34) pg MCHC (32-36) g/dL RDW Std Deviation (36.4-46.3) fL RDW Coeff of Scooter (11.5-14.5) % Plt Count (130-400) K/uL MPV (7.4-10.4) fL Immature Gran % (Auto) % Neut % (Auto) % Lymph % (Auto) % [place] % (Auto) % Eos % (Auto) % Baso % (Auto) % Neut # (Auto) (1.4-6.5) K/uL Lymph # (Auto) (1.2-3.4) K/uL [place] # (Auto) (0.11-0.59) K/uL Eos # (Auto) (0-0.5) K/uL Baso # (Auto) (0-0.2) K/uL Immature Gran # (Auto) (0.00-0.02) K/uL Platelet Estimate (Normal) PT (9.0-12.0) Seconds INR (0.9-1.1) APTT (21.0-31.0) Seconds PTT Ratio Sodium (136-145) mmol/L Potassium (3.5-5.1) mmol/L Chloride (98-107) mmol/L Carbon Dioxide (21-32) mmol/L Anion Gap (3-11) BUN (7-18) mg/dl Creatinine (0.6-1.4) mg/dl Est Cr Clr Drug Dosing ml/min Est GFR ( Amer) ml/min Est GFR (Non-Af Amer) ml/min BUN/Creatinine Ratio (10-20) Glucose (70-99) mg/dl Lactate (0.4-2.0) mmol/L Calcium (8.5-10.1) mg/dl Phosphorus (2.5-4.9) mg/dl Magnesium (1.8-2.4) mg/dl Total Bilirubin (0.2-1) mg/dl AST (15-37) U/L ALT (12-78) U/L Alkaline Phosphatase (45-117) U/L NT-Pro-B Natriuret Pep (0-900) pg/ml Total Protein (6.4-8.2) gm/dl Albumin (3.4-5.0) gm/dl Globulin (2.5-4.0) gm/dl Albumin/Globulin Ratio (0.9-2) Procalcitonin (0-0.5) ng/ml Urine Color Urine Appearance (Clear) Urine pH (4.5-7.5) Ur Specific [place] (1.000-1.030) Urine Protein (Negative) Urine Glucose (UA) (Negative) Urine Ketones (Negative) Urine Blood (Negative) Urine Nitrite (Negative) Urine Bilirubin (Negative) Urine Urobilinogen (Negative) Ur Leukocyte Esterase (Negative) Anaplasma Smear See Comment Babesia Smear See Comment Babesia microti DNA PCR (Not Detected) Lyme Disease IgG Ab Negative (Negative) Lyme Disease IgM Ab Negative (Negative) COVID-19 Eval Order Covid19 at [facility] SARS-CoV-2 (PCR) (Negative) 01/18/21 01/18/21 01/18/21 Range/Units 02:38 03:53 04:40 WBC (4.8-10.8) K/uL RBC (4.7-6.1) M/uL Hgb (14.0-18.0) g/dL Hct (42-52) % MCV (80-100) fL MCH (25-34) pg MCHC (32-36) g/dL RDW Std Deviation (36.4-46.3) fL RDW Coeff of Scooter (11.5-14.5) % Plt Count (130-400) K/uL MPV (7.4-10.4) fL Immature Gran % (Auto) % Neut % (Auto) % Lymph % (Auto) % [place] % (Auto) % Eos % (Auto) % Baso % (Auto) % Neut # (Auto) (1.4-6.5) K/uL Lymph # (Auto) (1.2-3.4) K/uL [place] # (Auto) (0.11-0.59) K/uL Eos # (Auto) (0-0.5) K/uL Baso # (Auto) (0-0.2) K/uL Immature Gran # (Auto) (0.00-0.02) K/uL Platelet Estimate (Normal) PT (9.0-12.0) Seconds INR (0.9-1.1) APTT (21.0-31.0) Seconds PTT Ratio Sodium (136-145) mmol/L Potassium (3.5-5.1) mmol/L Chloride (98-107) mmol/L Carbon Dioxide (21-32) mmol/L Anion Gap (3-11) BUN (7-18) mg/dl Creatinine (0.6-1.4) mg/dl Est Cr Clr Drug Dosing ml/min Est GFR ( Amer) ml/min Est GFR (Non-Af Amer) ml/min BUN/Creatinine Ratio (10-20) Glucose (70-99) mg/dl Lactate 2.3 H* (0.4-2.0) mmol/L Calcium (8.5-10.1) mg/dl Phosphorus (2.5-4.9) mg/dl Magnesium (1.8-2.4) mg/dl Total Bilirubin (0.2-1) mg/dl AST (15-37) U/L ALT (12-78) U/L Alkaline Phosphatase (45-117) U/L NT-Pro-B Natriuret Pep (0-900) pg/ml Total Protein (6.4-8.2) gm/dl Albumin (3.4-5.0) gm/dl Globulin (2.5-4.0) gm/dl Albumin/Globulin Ratio (0.9-2) Procalcitonin (0-0.5) ng/ml Urine Color Dark Yellow Urine Appearance Clear (Clear) Urine pH 5.0 (4.5-7.5) Ur Specific [place] 1.013 (1.000-1.030) Urine Protein Negative (Negative) Urine Glucose (UA) Negative (Negative) Urine Ketones Trace H (Negative) Urine Blood Negative (Negative) Urine Nitrite Negative (Negative) Urine Bilirubin Negative (Negative) Urine Urobilinogen Negative (Negative) Ur Leukocyte Esterase Negative (Negative) Anaplasma Smear Babesia Smear Babesia microti DNA PCR (Not Detected) Lyme Disease IgG Ab (Negative) Lyme Disease IgM Ab (Negative) COVID-19 Eval Order SARS-CoV-2 (PCR) NEGATIVE (Negative) 01/18/21 01/18/21 01/18/21 Range/Units 06:05 06:05 06:05 WBC (4.8-10.8) K/uL RBC (4.7-6.1) M/uL Hgb (14.0-18.0) g/dL Hct (42-52) % MCV (80-100) fL MCH (25-34) pg MCHC (32-36) g/dL RDW Std Deviation (36.4-46.3) fL RDW Coeff of Scooter (11.5-14.5) % Plt Count (130-400) K/uL MPV (7.4-10.4) fL Immature Gran % (Auto) % Neut % (Auto) % Lymph % (Auto) % [place] % (Auto) % Eos % (Auto) % Baso % (Auto) % Neut # (Auto) (1.4-6.5) K/uL Lymph # (Auto) (1.2-3.4) K/uL [place] # (Auto) (0.11-0.59) K/uL Eos # (Auto) (0-0.5) K/uL Baso # (Auto) (0-0.2) K/uL Immature Gran # (Auto) (0.00-0.02) K/uL Platelet Estimate (Normal) PT (9.0-12.0) Seconds INR (0.9-1.1) APTT (21.0-31.0) Seconds PTT Ratio Sodium (136-145) mmol/L Potassium (3.5-5.1) mmol/L Chloride (98-107) mmol/L Carbon Dioxide (21-32) mmol/L Anion Gap (3-11) BUN (7-18) mg/dl Creatinine (0.6-1.4) mg/dl Est Cr Clr Drug Dosing ml/min Est GFR ( Amer) ml/min Est GFR (Non-Af Amer) ml/min BUN/Creatinine Ratio (10-20) Glucose (70-99) mg/dl Lactate 2.1 H* (0.4-2.0) mmol/L Calcium (8.5-10.1) mg/dl Phosphorus (2.5-4.9) mg/dl Magnesium (1.8-2.4) mg/dl Total Bilirubin (0.2-1) mg/dl AST (15-37) U/L ALT (12-78) U/L Alkaline Phosphatase (45-117) U/L NT-Pro-B Natriuret Pep 2861 H (0-900) pg/ml Total Protein (6.4-8.2) gm/dl Albumin (3.4-5.0) gm/dl Globulin (2.5-4.0) gm/dl Albumin/Globulin Ratio (0.9-2) Procalcitonin 12.99 H (0-0.5) ng/ml Urine Color Urine Appearance (Clear) Urine pH (4.5-7.5) Ur Specific [place] (1.000-1.030) Urine Protein (Negative) Urine Glucose (UA) (Negative) Urine Ketones (Negative) Urine Blood (Negative) Urine Nitrite (Negative) Urine Bilirubin (Negative) Urine Urobilinogen (Negative) Ur Leukocyte Esterase (Negative) Anaplasma Smear Babesia Smear Babesia microti DNA PCR (Not Detected) Lyme Disease IgG Ab (Negative) Lyme Disease IgM Ab (Negative) COVID-19 Eval Order SARS-CoV-2 (PCR) (Negative) 01/18/21 01/19/21 01/19/21 Range/Units 14:35 06:30 06:30 WBC 10.40 (4.8-10.8) K/uL RBC 4.64 L (4.7-6.1) M/uL Hgb 12.6 L D (14.0-18.0) g/dL Hct 39.4 L (42-52) % MCV 84.9 (80-100) fL MCH 27.2 (25-34) pg MCHC 32.0 (32-36) g/dL RDW Std Deviation 51.7 H (36.4-46.3) fL RDW Coeff of Scooter 16.7 H (11.5-14.5) % Plt Count 72 L (130-400) K/uL MPV 9.0 (7.4-10.4) fL Immature Gran % (Auto) 1.4 % Neut % (Auto) 83.6 % Lymph % (Auto) 8.2 % [place] % (Auto) 6.4 % Eos % (Auto) 0.3 % Baso % (Auto) 0.1 % Neut # (Auto) 8.69 H (1.4-6.5) K/uL Lymph # (Auto) 0.85 L (1.2-3.4) K/uL [place] # (Auto) 0.67 H (0.11-0.59) K/uL Eos # (Auto) 0.03 (0-0.5) K/uL Baso # (Auto) 0.01 (0-0.2) K/uL Immature Gran # (Auto) 0.15 H (0.00-0.02) K/uL Platelet Estimate (Normal) PT 20.2 H (9.0-12.0) Seconds INR 2.1 H (0.9-1.1) APTT (21.0-31.0) Seconds PTT Ratio Sodium (136-145) mmol/L Potassium (3.5-5.1) mmol/L Chloride (98-107) mmol/L Carbon Dioxide (21-32) mmol/L Anion Gap (3-11) BUN (7-18) mg/dl Creatinine (0.6-1.4) mg/dl Est Cr Clr Drug Dosing ml/min Est GFR ( Amer) ml/min Est GFR (Non-Af Amer) ml/min BUN/Creatinine Ratio (10-20) Glucose (70-99) mg/dl Lactate (0.4-2.0) mmol/L Calcium (8.5-10.1) mg/dl Phosphorus (2.5-4.9) mg/dl Magnesium (1.8-2.4) mg/dl Total Bilirubin (0.2-1) mg/dl AST (15-37) U/L ALT (12-78) U/L Alkaline Phosphatase (45-117) U/L NT-Pro-B Natriuret Pep (0-900) pg/ml Total Protein (6.4-8.2) gm/dl Albumin (3.4-5.0) gm/dl Globulin (2.5-4.0) gm/dl Albumin/Globulin Ratio (0.9-2) Procalcitonin (0-0.5) ng/ml Urine Color Urine Appearance (Clear) Urine pH (4.5-7.5) Ur Specific [place] (1.000-1.030) Urine Protein (Negative) Urine Glucose (UA) (Negative) Urine Ketones (Negative) Urine Blood (Negative) Urine Nitrite (Negative) Urine Bilirubin (Negative) Urine Urobilinogen (Negative) Ur Leukocyte Esterase (Negative) Anaplasma Smear Babesia Smear Babesia microti DNA PCR Not Detected (Not Detected) Lyme Disease IgG Ab (Negative) Lyme Disease IgM Ab (Negative) COVID-19 Eval Order SARS-CoV-2 (PCR) (Negative) 01/19/21 01/19/21 Range/Units 06:30 06:30 WBC (4.8-10.8) K/uL RBC (4.7-6.1) M/uL Hgb (14.0-18.0) g/dL Hct (42-52) % MCV (80-100) fL MCH (25-34) pg MCHC (32-36) g/dL RDW Std Deviation (36.4-46.3) fL RDW Coeff of Scooter (11.5-14.5) % Plt Count (130-400) K/uL MPV (7.4-10.4) fL Immature Gran % (Auto) % Neut % (Auto) % Lymph % (Auto) % [place] % (Auto) % Eos % (Auto) % Baso % (Auto) % Neut # (Auto) (1.4-6.5) K/uL Lymph # (Auto) (1.2-3.4) K/uL [place] # (Auto) (0.11-0.59) K/uL Eos # (Auto) (0-0.5) K/uL Baso # (Auto) (0-0.2) K/uL Immature Gran # (Auto) (0.00-0.02) K/uL Platelet Estimate (Normal) PT (9.0-12.0) Seconds INR (0.9-1.1) APTT (21.0-31.0) Seconds PTT Ratio Sodium 143 (136-145) mmol/L Potassium 3.7 D (3.5-5.1) mmol/L Chloride 113 H (98-107) mmol/L Carbon Dioxide 24 (21-32) mmol/L Anion Gap 6.0 (3-11) BUN 22 H (7-18) mg/dl Creatinine 1.31 (0.6-1.4) mg/dl Est Cr Clr Drug Dosing 66.4 ml/min Est GFR ( Amer) 61.3 ml/min Est GFR (Non-Af Amer) 52.9 ml/min BUN/Creatinine Ratio 16.6 (10-20) Glucose 100 H (70-99) mg/dl Lactate (0.4-2.0) mmol/L Calcium 7.8 L (8.5-10.1) mg/dl Phosphorus 2.3 L (2.5-4.9) mg/dl Magnesium 1.8 (1.8-2.4) mg/dl Total Bilirubin 0.8 D (0.2-1) mg/dl AST 23 (15-37) U/L ALT 12 (12-78) U/L Alkaline Phosphatase 39 L (45-117) U/L NT-Pro-B Natriuret Pep (0-900) pg/ml Total Protein 5.4 L D (6.4-8.2) gm/dl Albumin 2.0 L (3.4-5.0) gm/dl Globulin 3.4 (2.5-4.0) gm/dl Albumin/Globulin Ratio 0.6 L (0.9-2) Procalcitonin 5.75 H (0-0.5) ng/ml Urine Color Urine Appearance (Clear) Urine pH (4.5-7.5) Ur Specific [place] (1.000-1.030) Urine Protein (Negative) Urine Glucose (UA) (Negative) Urine Ketones (Negative) Urine Blood (Negative) Urine Nitrite (Negative) Urine Bilirubin (Negative) Urine Urobilinogen (Negative) Ur Leukocyte Esterase (Negative) Anaplasma Smear Babesia Smear Babesia microti DNA PCR (Not Detected) Lyme Disease IgG Ab (Negative) Lyme Disease IgM Ab (Negative) COVID-19 Eval Order SARS-CoV-2 (PCR) (Negative) Administered Medications Discontinued Medications Acetaminophen (Acetaminophen 500 Mg Tab) 1,000 mg PO Q8H PRN PRN Reason: Pain or Fever Stop: 02/17/21 11:36 Last Admin: 01/19/21 00:48 Dose: 1,000 mg Documented by: [id number] Aspirin (Aspirin 81 Mg Ectab) 81 mg PO HS KALPANA Stop: 02/17/21 20:59 Last Admin: 01/19/21 20:54 Dose: 81 mg Documented by: [id number] Admin: 01/18/21 21:19 Dose: 81 mg Documented by: [id number] Carvedilol (Carvedilol 12.5 Mg Tab) 12.5 mg PO BID KALPANA Stop: 02/17/21 11:36 Last Admin: 01/20/21 09:38 Dose: 12.5 mg Documented by: [id number] Cosigned by: [id number] Admin: 01/19/21 20:55 Dose: 12.5 mg Documented by: [id number] Admin: 01/19/21 08:23 Dose: 12.5 mg Documented by: [id number] Admin: 01/18/21 21:19 Dose: 12.5 mg Documented by: [id number] Admin: 01/18/21 12:22 Dose: 12.5 mg Documented by: [id number] Potassium Chloride (K Lee / Wtr) 10 meq in 100 mls @ 100 mls/hr IV Q1H KALPANA Stop: 01/18/21 04:14 Last Infusion: 01/18/21 04:55 Dose: 0 mls/hr Documented by: [id number] Admin: 01/18/21 03:51 Dose: 100 mls/hr Documented by: [id number] Infusion: 01/18/21 03:51 Dose: 0 mls/hr Documented by: [id number] Admin: 01/18/21 02:50 Dose: 100 mls/hr Documented by: [id number] Sodium Chloride (Nss) 250 mls @ 999 mls/hr IV .Q16M ONE Stop: 01/18/21 02:22 Last Infusion: 01/18/21 04:38 Dose: 0 mls/hr Documented by: [id number] Admin: 01/18/21 02:55 Dose: 999 mls/hr Documented by: [id number] Sodium Chloride (Nss 1000ml) 1,000 mls @ 999 mls/hr IV .Q1H1M ONE Stop: 01/18/21 03:17 Last Infusion: 01/18/21 02:55 Dose: 0 mls/hr Documented by: [id number] Admin: 01/18/21 02:00 Dose: 999 mls/hr Documented by: [id number] Doxycycline Hyclate 100 mg/ (Dextrose) 110 mls @ 50 mls/hr IV NOW STA Stop: 01/18/21 06:59 Last Infusion: 01/18/21 07:19 Dose: 0 mls/hr Documented by: [id number] Admin: 01/18/21 05:12 Dose: 50 mls/hr Documented by: [id number] Cefepime HCl (Maxipime) 2,000 mg in 20 mls @ 5 mls/min IV NOW STA; Protocol Stop: 01/18/21 05:02 Last Admin: 01/18/21 05:06 Dose: 5 mls/min Documented by: [id number] Sodium Chloride (Nss) 500 mls @ 999 mls/hr IV .Q31M ONE Stop: 01/18/21 05:43 Last Infusion: 01/18/21 05:59 Dose: 0 mls/hr Documented by: [id number] Admin: 01/18/21 05:15 Dose: 999 mls/hr Documented by: [id number] Sodium Chloride (Nss 1000ml) 1,000 mls @ 125 mls/hr IV .Q8H KALPANA Stop: 02/17/21 05:14 Last Infusion: 01/20/21 11:54 Dose: 0 mls/hr Documented by: [id number] Admin: 01/20/21 09:42 Dose: 125 mls/hr Documented by: [id number] Cosigned by: [id number] Infusion: 01/20/21 09:35 Dose: 125 mls/hr Documented by: [id number] Cosigned by: [id number] Admin: 01/20/21 01:35 Dose: 125 mls/hr Documented by: [id number] Infusion: 01/20/21 01:21 Dose: 125 mls/hr Documented by: [id number] Admin: 01/19/21 17:21 Dose: 125 mls/hr Documented by: [id number] Infusion: 01/19/21 15:20 Dose: 125 mls/hr Documented by: [id number] Admin: 01/19/21 07:20 Dose: 125 mls/hr Documented by: [id number] Infusion: 01/19/21 07:12 Dose: 125 mls/hr Documented by: [id number] Infusion: 01/19/21 02:42 Dose: 125 mls/hr Documented by: [id number] Infusion: 01/19/21 01:30 Dose: 0 mls/hr Documented by: [id number] Admin: 01/18/21 22:00 Dose: 125 mls/hr Documented by: [id number] Infusion: 01/18/21 22:00 Dose: 125 mls/hr Documented by: [id number] Admin: 01/18/21 14:18 Dose: 125 mls/hr Documented by: [id number] Infusion: 01/18/21 13:31 Dose: 0 mls/hr Documented by: [id number] Admin: 01/18/21 05:59 Dose: 125 mls/hr Documented by: [id number] Doxycycline Hyclate 100 mg/ (Dextrose) 110 mls @ 50 mls/hr IV Q12H KALPANA Stop: 01/25/21 17:59 Last Infusion: 01/20/21 08:28 Dose: 0 mls/hr Documented by: [id number] Admin: 01/20/21 06:07 Dose: 50 mls/hr Documented by: [id number] Infusion: 01/19/21 19:57 Dose: 0 mls/hr Documented by: [id number] Admin: 01/19/21 17:26 Dose: 50 mls/hr Documented by: [id number] Infusion: 01/19/21 07:08 Dose: 0 mls/hr Documented by: [id number] Admin: 01/19/21 05:13 Dose: 50 mls/hr Documented by: [id number] Infusion: 01/18/21 19:20 Dose: 0 mls/hr Documented by: [id number] Admin: 01/18/21 17:08 Dose: 50 mls/hr Documented by: [id number] Ceftriaxone Sodium 2,000 mg/ (Dextrose) 70 mls @ 140 mls/hr IV Q24H KALPANA; Protocol Stop: 01/20/21 11:59 Last Infusion: 01/18/21 12:54 Dose: 0 mls/hr Documented by: [id number] Admin: 01/18/21 12:22 Dose: 140 mls/hr Documented by: [id number] Sodium Chloride (Nss 1000ml) 1,000 mls @ 999 mls/hr IV .Q1H1M ONE Stop: 01/19/21 02:21 Last Infusion: 01/19/21 02:42 Dose: 0 mls/hr Documented by: [id number] Admin: 01/19/21 01:34 Dose: 999 mls/hr Documented by: [id number] Magnesium Sulfate/Dextrose (Magnesium Sulfate / D5w) 1 gm in 100 mls @ 50 mls/hr IV ONE ONE Stop: 01/19/21 10:44 Last Infusion: 01/19/21 10:55 Dose: 0 mls/hr Documented by: [id number] Admin: 01/19/21 08:55 Dose: 50 mls/hr Documented by: [id number] Potassium Phosphate 21 mmol/ (Sodium Chloride) 507 mls @ 88 mls/hr IV ONE ONE Stop: 01/19/21 14:30 Last Infusion: 01/19/21 19:08 Dose: 0 mls/hr Documented by: [id number] Admin: 01/19/21 09:07 Dose: 88 mls/hr Documented by: [id number] Lansoprazole (Lansoprazole 15 Mg Soltab) 15 mg PO QAM KALPANA Stop: 02/17/21 11:36 Last Admin: 01/20/21 09:39 Dose: 15 mg Documented by: [id number] Cosigned by: [id number] Admin: 01/19/21 10:02 Dose: 15 mg Documented by: [id number] Admin: 01/18/21 12:22 Dose: 15 mg Documented by: [id number] Metoprolol Tartrate (Metoprolol Tartrate 1 Mg/Ml Vial) 5 mg IV NOW STA Stop: 01/18/21 02:07 Last Admin: 01/18/21 02:26 Dose: Not Given Documented by: [id number] Metoprolol Tartrate (Metoprolol Tartrate 1 Mg/Ml Vial) 5 mg IV NOW STA Stop: 01/18/21 23:48 Last Admin: 01/18/21 23:55 Dose: 5 mg Documented by: [id number] Potassium Chloride (Potassium Chloride Crtab 20 Meq Tabcr) 40 meq PO NOW STA Stop: 01/18/21 08:27 Last Admin: 01/18/21 14:15 Dose: Not Given Documented by: [id number] Venlafaxine HCl (Venlafaxine Hcl 37.5 Mg Tab) 37.5 mg PO BID [facility] Stop: 02/17/21 11:36 Last Admin: 01/20/21 09:39 Dose: 37.5 mg Documented by: [id number] Cosigned by: [id number] Admin: 01/19/21 20:54 Dose: 37.5 mg Documented by: [id number] Admin: 01/19/21 10:03 Dose: 37.5 mg Documented by: [id number] Admin: 01/18/21 21:19 Dose: 37.5 mg Documented by: [id number] Admin: 01/18/21 12:22 Dose: 37.5 mg Documented by: [id number] Warfarin Sodium (Warfarin Sod 2 Mg Tab) 2 mg PO [email or web address]@1600 [facility] Stop: 02/17/21 15:59 Last Admin: 01/20/21 15:51 Dose: 2 mg Documented by: [id number] Admin: 01/18/21 17:09 Dose: 2 mg Documented by: [id number] Warfarin Sodium (Warfarin Sod 3 Mg Tab) 3 mg PO [email or web address] [facility] Stop: 02/18/21 15:59 Last Admin: 01/19/21 17:20 Dose: 3 mg Documented by: [id number] Warfarin Sodium (Warfarin Sod 5 Mg Tab) 5 mg PO 1230 ONE Stop: 01/20/21 12:31 Last Admin: 01/20/21 12:41 Dose: 5 mg Documented by: [id number] Imaging Data Radiologist's Impression: Chest X-Ray 01/18/21 01:16 XR chest 1V portable INDICATION: MN ^Y ^short of breath. TECHNIQUE: Single frontal radiograph of the chest was obtained. Comparison: Comparison is made to chest one view 12/12/2017 FINDINGS: Exam is limited by underpenetration. No lines and tubes are seen. The aorta is tortuous. The remainder of the cardiomediastinal silhouette is unremarkable. The lungs are clear. No evidence of pleural effusion or pneumothorax. IMPRESSION: No acute chest disease. ACT 112: Negative or not required by law. Electronically signed by: Yan Gao M.D. 01/18/2021 9:[address] 01/18/21 12:01 CT chest diagnostic wo con CLINICAL HISTORY: Rll pnuemonia COMPARISON STUDY: No previous studies for comparison. CT DOSE: 618.83 mGycm TECHNIQUE: CT of the thorax was performed from the thoracic inlet to the lung bases. Images are reviewed in the axial, sagittal, and coronal planes. IV contrast was not administered for this examination. A dose lowering technique was utilized adhering to the principles of ALARA. FINDINGS: There is no axillary, supra clavicle or internal mammary lymphadenopathy seen. Mediastinal lymph nodes are not enlarged. Thyroid: Visualized portion of thyroid gland shows no evidence of focal lesions. Esophagus is normal. There is moderate fat containing hiatal hernia is seen. Thoracic aorta: Ascending portion of thoracic aorta is ectatic measuring 4.1 cm in diameter. Main pulmonary artery is dilated measuring 3.2 cm in diameter, which could be seen in pulmonary hypertension. Azygos vein is prominent. Heart: The heart is normal in size and configuration, without pericardial effusion. Minimal coronary calcifications are seen. Lungs and pleural spaces: Tracheobronchial tree is patent. Prominent septal thickening is seen at peripheral aspect of posterior basal segments of bilateral lower lobes and associated with architectural distortion and possible traction bronchiectasis. Focal area of possible honeycombing is seen at the lateral basal segment of the left lower lobe (4/210). Above- mentioned findings could represent interstitial lung disease. No definite groundglass attenuation is seen, UIP pattern is possible however evaluation is limited due to significant motion artifact. No definite large pulmonary nodules are seen on this suboptimal exam. Upper abdomen: Partially visualized upper abdominal viscera is within normal limits. Skeletal structures: Multilevel degenerative changes of the spine. No definite aggressive osseous lesions are seen. IMPRESSION: No infiltrates or consolidative lesions. No pneumonia seen. Mild atelectasis is seen at dependent portions of bilateral lower lobes. Interstitial fibrosis is seen at the posterior distal aspect of bilateral lower lobes without significant groundglass attenuation; also there is focal area of possible honeycombing and mild traction bronchiectasis which might represent UIP pattern. Evaluation is suboptimal due to motion artifact. Please correlate above-mentioned findings with prior history of interstitial lung disease. Further evaluation with prone imaging might be considered. Dilatation of the main pulmonary artery could be seen in pulmonary hypertension. Please note that interstitial lung disease sometimes accompanied by pulmonary hypertension. Ectasia of ascending thoracic aorta. Please correlate above-mentioned findings with prior history. The rest of findings as above. ACT 112: Negative or not required by law. The above report was generated using voice recognition software. It may contain grammatical, syntax or spelling errors. Electronically signed by: Yahaira Warren DO 01/18/2021 2:35 PM Blood Pressure Blood Pressure Findings: Normal blood pressure Blood Pressure Disposition: did not require urgent referral Discharge Plan Visit Data Chief Complaint: Illness Stated Complaint: ILLNESS/COVID EXPOSURE Discharge Problem: Febrile illness, acute, Warfarin anticoagulation, Thrombocytopenia, Elevated lactic acid level Patient Disposition: Admitted As Inpatient Discharge Instructions Interventions: ED Discharge Assessment Last Done: 01/18/21 12:58
== END 2021-01-20 16:00 | disposition home or self-care (01) ==
LOC: EDINP 00:35 → ED 00:35 → SUATTDRO 06:08 → 2N 12:58

== ENCOUNTER 2021-01-21 13:45 | Observation (INO) ==
[2021-01-21 15:36] LABS: Hemoglobin 13.2 g/dL (14.0-18.0); Mean Corpuscular Hemoglobin 27.7 pg (25-34); Mean Corpuscular Volume 83.9 fL (80-100); RDW Coefficient of Variation 16.1 % (11.5-14.5); RDW Standard Deviation 49.4 fL (36.4-46.3); Red Blood Count 4.77 M/uL (4.7-6.1); White Blood Count 5.85 K/uL (4.8-10.8)
[2021-01-21 15:43] LABS: Appearance Urine Clear (Clear); Bacteria Urine Automated Negative (Negative); Bilirubin Urine Negative (Negative); Blood Urine 1+ (Negative); Cast Urine Automated 0 /lpf (0-5); Color Urine Yellow; Epithelial Cell Urine Auto 0-5 /lpf (0-5); Glucose Urine UA Negative (Negative); Ketones Urine Negative (Negative); Leukocyte Esterase Urine Negative (Negative); Nitrite Urine Negative (Negative); Protein Urine Negative (Negative); RBC Urine Automated 0-4 /hpf (0-4); Specific Gravity Urine 1.013 (1.000-1.030); Urobilinogen Urine Negative (Negative)
[2021-01-21 15:46] LABS: Mean Platelet Volume 10.3 fL (7.4-10.4); Platelet Count 97 K/uL (130-400)
[2021-01-21 15:54] LABS: Albumin Level 2.5 gm/dl (3.4-5.0); BUN Creatinine Ratio 16.1 (10-20); Creatinine Clr Calc Pharmacy 94.6 ml/min; Est GFR (Non-African American) 81.1 ml/min
[2021-01-21 15:58] LABS: Albumin Globulin Ratio 0.6 (0.9-2); Bilirubin,Total 0.7 mg/dl (0.2-1); Globulin 4.4 gm/dl (2.5-4.0); Total Protein 6.9 gm/dl (6.4-8.2)
[2021-01-21 16:10] LABS: INR 3.4 (0.9-1.1); Partial Thromboplastin Ratio 1.7; Partial Thromboplastin Time 44.7 Seconds (21.0-31.0); Prothrombin Time 31.5 Seconds (9.0-12.0)
[2021-01-21 16:47] LABS: Basophils # (auto) 0.02 K/uL (0-0.2); Basophils % (auto) 0.3 %; Eosinophils # (auto) 0.17 K/uL (0-0.5); Eosinophils % (auto) 2.9 %; Immature Granulocytes # (auto) 0.02 K/uL (0.00-0.02); Immature Granulocytes % (auto) 0.3 %; Lymphocytes # (auto) 1.22 K/uL (1.2-3.4); Lymphocytes % (auto) 20.9 %; Monocytes # (auto) 0.65 K/uL (0.11-0.59); Monocytes % (auto) 11.1 %; Neutrophils # (auto) 3.77 K/uL (1.4-6.5); Neutrophils % (auto) 64.5 %
--- NOTE | 2021-01-21 17:32 | History & Physical Report ---
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 RLE Cellulitis - Significant tenderness to palpation. Swelling worsened since discharge yesterday. - Borders drawn to monitor progress/recession of erythema. - Started on IV Ancef on admission - Repeat blood cultures pending from today; most recent blood cultures with 1/2 + for strep and other blood culture 1/2 for staph - Will also repeat blood cultures tomorrow - RLE doppler 01/20 -- There is age indeterminant but chronic appearing nonocclusive thrombus within the common femoral, superficial femoral, and popliteal veins as above. This is new from the 2018 dilatation. - Repeat RLE doppler 01/21 on admission -- No definite sonographic evidence of acute occlusive deep venous thrombus. Chronic appearing nonocclusive thrombus of the right lower extremity redemonstrated. - To note, there US report also shows that "the previously described thrombus within the common femoral and popliteal veins is not identified." - Currently w/o dyspnea but if patient were to become dyspneic or hemodynamically stable, may need to consider CTA. - WBC normal. Repeat CBC in AM. 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 - Diagnosed during recent hospitalization 01/18/21 - 01/20/21 - Echo EF 65%, last echo 2017 - Continue doxycycline BID Hypertension - Continue home Carvedilol History of PE's, on warfarin therapy - Per anticoagulation clinic today, plan to continue his "usual" warfarin dose of 3mg MWF and 2mg x4 days for now - INR on discharge yesterday was 1.7; INR today on admission 3.4 GERD -Continue home Lansoprazole BRITTNEY - continue CPAP use qhs - encourage weight loss and nutritional changes (more fruits and veggies, heart- healthy diet) chronic venous insufficiency - compression stockings - encourage activity and walking around, good infection prevention (keep wounds and cuts clean; do not allow dog to lick leg wounds) Anxiety -Well controlled on home medications -Continue home Venlafaxine, continue home xanax PRN Diet: Regular DVT Ppx: Home warfarin Code status: Full code Dispo: medsurge (2) Tick-borne disease: (3) Essential hypertension: (4) History of pulmonary embolus (PE): (5) GERD (gastroesophageal reflux disease): (6) Obstructive sleep apnea syndrome: (7) Chronic venous insufficiency: (8) Anxiety: History of Present Illness Chief Complaint: RLE pain and swelling Primary Care Provider: Haydee Mondragon DO Julius Bauer is a 75 yo man with PMHx of pulmonary embolisms on warfarin, obs tructive sleep apnea on CPAP, CKD stage III, HTN, prediabetes, chronic venous insufficiency, colon cancer s/p surgical resection 1992, TIA, anxiety and restless leg syndrome who was recently admitted from 01/18/21 to 01/20/21 for a febrile illness, diagnosed as likely tick borne illness, 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 Today, patient was called for follow up and he reported progressive RLE pain and swelling since discharge. It was initially noted on exam yesterday that patient had some increased RLE swelling compared to LLE and a venous doppler study was ordered (01/20/21) which revealed age indeterminant but chronic appearing nonocclusive thrombus within the common femoral, superficial femoral, and popliteal veins but no acute findings. He states that since being discharged from the hospital yesterday, he has had progressive swelling and pain in the right lower leg. Pain is now present from ankle to right groin. He states that after discharge, they went to [facility] to worm picker his abx but then returned home. Upon return home, he sat in his lift chair with legs elevated watching TV. He then went to bed, where he typically wears SCDs, but he was unable to tolerate the SCDs due to the swelling and pain; this is not typical for him. Due to being unable to tolerate the SCDs, he tried to put on thigh-high compression stockings but he was also unable to tolerate those. Patient also notes that some of the lesions on his right gil "scabbed off" and there was some yellow discharge. He denies any recurrent fevers, chills, SOB, CP, or GI symptoms. Allergies Allergy/AdvReac Type Severity Reaction Status Date / Time No Known Allergies Allergy Verified 01/21/21 16:42 Home Medications Medication Instructions Recorded Confirmed Type aspirin 81 mg tablet,delayed 81 mg PO HS tab 12/21/17 01/21/21 History release (Adult Aspirin Regimen) acetaminophen 650 mg 650 mg PO QID PRN tab 01/22/19 01/21/21 History tablet,extended release CPAP Machine #1 ea 01/01/20 01/21/21 Rx lansoprazole 15 mg capsule,delayed 15 mg PO DAILY #90 cap 07/22/20 01/21/21 Rx release venlafaxine 37.5 mg tablet 37.5 mg PO BID #180 tab 11/24/20 01/21/21 Rx dqdkwqpwldrz-chq-tbxko acid-vit 1 tab PO 3XWK tab 12/01/20 01/21/21 History K-lycop 400 mcg-20 mcg-370 mcg tablet (Men's 50 Plus Multivitamin) carvedilol 12.5 mg tablet 12.5 mg PO BID #180 tab 12/29/20 01/21/21 Rx warfarin 2 mg tablet See Rx Instructions PO UD #90 tab 01/12/21 01/21/21 Rx calcium carbonate 500 mg (1,250 1 tab PO DAILY 01/18/21 01/21/21 History mg)-vitamin D3 125 unit tablet doxycycline hyclate 100 mg capsule 100 mg PO BID 12 Days #24 cap 01/20/21 01/21/21 Rx alprazolam 0.5 mg tablet (Xanax) 0.5 mg PO BID PRN #60 tab 01/21/21 01/21/21 Rx Past Med/Surg History Medical History (Updated 01/21/21 @ 19:05 by Jacque Flores DO) Acute kidney injury Anxiety Cellulitis of right leg Chronic kidney disease, stage 3 (moderate) Chronic venous insufficiency DVT (deep venous thrombosis) Per patient, ~1997. 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 Essential hypertension GERD (gastroesophageal reflux disease) History of colon cancer History of pulmonary embolus (PE) History of TIA (transient ischemic attack) Lymphedema Obstructive sleep apnea syndrome Prediabetes Restless legs syndrome Tick-borne disease Vitamin D insufficiency Surgical History History of eyelid surgery History of tonsillectomy S/P partial colectomy (1992) Family History Unknown Hypertension Father Cancer Lung disease Mother Myocardial infarction Coronary heart disease Son BRITTNEY (obstructive sleep apnea) Denies family history of Ovarian cancer Prostate cancer Breast cancer Colorectal cancer Social History Smoking Status: Former smoker Age Started Using Tobacco: 12; packs per day: 2; Second Hand Exposure: No; Hx Alcohol Use: No Hx Substance Use: No Preferred Language: Swedish Communication Ability: Effective Visual Impairment: Severely Limited Hearing Ability: Normal Medicinal Chemist Required: No Beliefs That Will Affect Care: None marital status: Current Living Situation: Spouse Current Living Situation Comment: 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 occupational status: retired How many Children do You have: 1 How many Children do You have Comment: children are local and able to assist as needed Feels Safe at Home: Yes Diet Comment: has meals on wheels during the past year weight has: remained stable Dental Care, Regularly: No Physical Activity Frequency: 1-2 Times per Week Seatbelt Use: always Sunscreen Use: Yes Assistive Devices: BiPap Review of Systems Constitutional: no fever, no chills and no fatigue Eyes: no problem reported Ear, Nose, Mouth, Throat: no problem reported Respiratory: no cough and no dyspnea Cardiovascular: no chest pain Gastrointestinal: no abdominal pain, no nausea and no vomiting Genitourinary: no problem reported Musculoskeletal: + RLE pain and swelling Integumentary: + wounds and + dry skin Neurologic: no headache(s) Psychiatric: no problem reported Physical Exam Physical Exam: GENERAL: No acute distress. Well developed and well nourished. Vital signs reviewed as above. EYES: EOMI. Anicteric sclerae. HENT: Moist mucous membranes. RESPIRATORY: Normal respiratory effort. Mild bilateral lower lobe rales. CARDIOVASCULAR: Regular rate and rhythm. No murmurs. ABDOMEN: Soft, non-tender and non-distended. Normal bowel sounds. EXTREMITIES: 2-3+ RLE edema. 1+ LLE edema. Significant tenderness to palpation to RLE both anterior and posterior aspects. SKIN: Warm, dry. Multiple lesions to right gil, scabbed, no active discharge or bleeding. NEUROLOGIC: A/O x3. No focal neurological deficits. PSYCHIATRIC: Cooperative. Appropriate mood and affect. Results & Data Results & Data ([facility]) Vital Signs (Past 12 Hours) Vital Signs Temp Pulse Resp BP Pulse Ox 01/21/21 16:45 163/106 H 01/21/21 16:30 75 20 157/100 H 96 01/21/21 16:15 76 18 177/111 H 98 01/21/21 16:01 76 24 146/96 H 98 01/21/21 15:45 75 15 165/109 H 96 01/21/21 15:36 74 18 152/106 H 96 01/21/21 13:49 36.6 C 79 16 126/88 97 Code Status & VTE Plan VTE Prophylaxis Plan VTE Prophylaxis will be ordered: Yes Supervising Physician Co-Signing Physician Notes I personally examined the patient and verified all lindo points of history and exam, discussed case, and agree with decision making with Dr Flores Other than leg he has been feeling okay. Since he got home from the hospital his right leg is gotten bigger and more tender. It hurt to walk on, he cannot put on his compression stockings. Vitals noted, in general he is awake and alert pleasant no distress. HEENT normocephalic atraumatic mucous membranes are moist. Breathing unlabored no accessory muscle use good effort. Right lower extremity with diffuse erythema is much bigger than the left, it is very tender it has a proximal leading edge of erythema that was outlined. There are several open venous ulcers although none appear to be abscessed or have a significant amount of exudate. 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 Treat with Ancef and follow. Hopefully home quickly on Keflex. Positive blood cultureshe had one from 01/18 that appeared to be a contaminant with strep, but given that it grew a single strain and the diagnosis of anaplasmosis was on strong clinical presumption rather than a true positive diagnostic test, we repeated blood cultures on 01/20 to be safe, now those are growing 1 out of 2 that appear to be staphtherefore likely an unrelated contaminantbut we will check blood cultures yet again and what appears to be an odd situation of repeated contaminant blood cultures, just to ensure there is not true bacteremia at play Presumed anaplasmosissee prior hospital staycontinue doxycycline for this DVTCoumadin Resident Activity Tracking Resident Involvement: Resident Care Provided Care Provided: Adult Hospital Medicine (1) GERD (gastroesophageal reflux disease) Esophagitis presence: esophagitis presence not specified Qualified Code(s): K21.9 - Gastro-esophageal reflux disease without esophagitis
[2021-01-21] MEDS: ceFAZolin 1000MG 1,000 MG/7.5 ML SYR IV SCH (18:22)
--- NOTE | 2021-01-21 18:29 | Ultrasound Report ---
US venous doppler LE RT HISTORY: 75 years-old Male increased swelling and pain to RLE acute pain and swelling of the right l ower extremity. Follow-up study in a patient with age-indeterminate likely chronic nonocclusive throm bus within the common femoral, superficial femoral and popliteal veins. COMPARISON: Doppler study 01/20/2021 TECHNIQUE: Multiple real-time sonographic images of the right lower extremity deep venous structures were obtained assessing grayscale appearance, color and spectral flow. FINDINGS: Chronic appearing nonocclusive thrombus again noted within the right proximal distal femoral vein. Th e previously described thrombus within the common femoral and popliteal veins is not identified. No a cute occlusive thrombus identified. Limited visualization of the calf veins. Subcutaneous edema. Note d within the right inguinal chain are favored to be reactive. IMPRESSION: 1. No definite sonographic evidence of acute occlusive deep venous thrombus. 2. Chronic appearing nonocclusive thrombus of the right lower extremity redemonstrated. ACT 112: Negative or not required by law. The above report was generated using voice recognition software. It may contain grammatical, syntax o r spelling errors. Electronically signed by: Frandy Hernandez M.D. 01/21/2021 6:28 PM
--- NOTE | 2021-01-21 19:58 | Billing Data ---
Date of Service January 21, 2021 Coding Level of Care Code INT OBSERVATION CARE 70M LVL 3
[2021-01-21] MEDS ORDERED: ACETAMINOPHEN 325 MG TAB PO PRN (21:20)
[2021-01-21] MEDS ORDERED: ONDANSETRON INJ 2 MG/ML 2 ML VIAL IV PRN (21:20)
[2021-01-21] MEDS ORDERED: ALUMINUM/MAGNESIUM SUSP 30 ML UDC PO PRN (21:20)
[2021-01-21] MEDS ORDERED: POLYETHYLENE (MIRALAX) 17 GM PACK PO PRN (21:20)
[2021-01-21] MEDS ORDERED: ASPIRIN 81 MG ECTAB PO SCH (22:00)
[2021-01-21] MEDS: carvediloL 12.5 MG TAB PO SCH (22:52)
[2021-01-21] MEDS: DOXYCYCLINE HYCLATE 100 MG CAP PO SCH (22:52)
[2021-01-21] MEDS: VENLAFAXINE HCL 37.5 MG TAB PO SCH (22:53)
[2021-01-22] MEDS ORDERED: INFLUENZA VACCINE HIGH DOSE PF 65+ 0.7 ML SYR IM ONE (00:49)
[2021-01-22] MEDS: ceFAZolin 1000MG 1,000 MG/7.5 ML SYR IV SCH ×3 (02:41→17:47)
--- NOTE | 2021-01-22 05:39 | Hospitalist Progress Note ---
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 RLE Cellulitis -- in setting of chronic venous insufficiency and partially- positive BCX with similar profile as WCX in 02/2020 - Significant tenderness to palpation. Swelling worsened since discharge yesterday. - Borders drawn to monitor progress/recession of erythema. - Work-up significant for following: - BCX from 01/20 demonstrating 1/2 positive for coagulase negative Staph - BCX from 01/18 demonstrating 1/2 positive for Group G strep - resistant to macrolides - WCX from 02/2020 from LEFT leg -- (+) for MSSA and Group G strep -- same sensitivities as above - RLE Doppler (01/20, 01/21): Chronic DVTs (new from 2018), however no evidence of acute DVT - Repeat BCX today -- if negative at 24-hours, suspect he should be safe to go home - Suspect BCX are contaminants and more likely patient access representative of skin nicole (i.e., contaminants) - Ancef for now given sensitivities above. Transition to Keflex 750mg t.i.d. x 6 days on discharge (end 01/28). - Insufficiency: Elevation. Compression when appropriate. History of PEs / Chronic Anticoagulation on Warfarin therapy - INR on discharge 01/20 was 1.7 --> INR on admission (01/21) at 3.4 --> (01/22) 4.0 - Dopplers, as above, demonstrating unchanged chronic DVTs of RLE - Hold Warfarin given uptrending INR. 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 x 14 days -- end 02/02/21 --> of note, will continue alongside 1st gen cephalosporin given doxy's questionable vs. suboptimal coverage of Strep spp. Hypertension - Continue home Carvedilol - TTE during last admission: normal biventricular function, LVEF 65% GERD -Continue home Lansoprazole BRITTNEY - continue CPAP use qhs - encourage weight loss and nutritional changes (more fruits and veggies, heart- healthy diet) Chronic Venous Insufficiency - compression stockings - encourage activity and walking around, good infection prevention (keep wounds and cuts clean; do not allow dog to lick leg wounds) Anxiety -Well controlled on home medications -Continue home Venlafaxine, continue home xanax PRN Diet: Regular DVT Ppx: Home warfarin Code status: Full code Dispo: medsurge (2) Tick-borne disease: (3) Essential hypertension: (4) History of pulmonary embolus (PE): (5) GERD (gastroesophageal reflux disease): (6) Obstructive sleep apnea syndrome: (7) Chronic venous insufficiency: (8) Anxiety: Admission and Anticipated Discharge Date Admission Date: January 21, 2021 Subjective Patient seen at bedside this morning, no acute events overnight. Reports feeling well overall. Still report some mild right calf pain, but overall not bothering him too much. Denies any fevers, chills, night sweats. Says his appetite is good. No nausea or vomiting. No chest pain, palpitations, shortness of breath. Spirits are good. No complaints this morning. Review of Systems Review of Systems: as per HPI Physical Exam Physical Exam: General: Well-appearing 75-year-old gentleman who is lying back in his hospital bed, relaxed upon my arrival. No acute distress. HEENT: NCAT. Eyes - Sclera are white, anicteric, and without injection. PERRL. Mouth - MMM with no tonsillar edema or exudates. Cardiac: Normal rate and regular rhythm; S1 and S2 present with no murmurs, rubs, or gallops. Pulmonary: Good respiratory effort with symmetric expansion of the chest. No use of accessory muscles. Lungs were clear to auscultation bilaterally with no crackles or wheezes. Abdominal: Normoactive bowel sounds. Abdomen was soft, nondistended, and non- tender to palpation. Dermatologic: Examination of the right lower extremity does reveal significant enlargement of the calf when compared to the left side. There is violaceous discoloration extending just into the mid calf region, with patchy areas of erythema. This whole entire region does demonstrate glossiness and is nonblanchable. There is significant tenderness to palpation along the posterior calf. There is approximately 2+ pitting edema in this area. Capillary refill is 2 seconds. Sensation to light touch intact. Psych: Well-developed, well-nourished, appropriately dressed for occasion. Behavior is cooperative and appropriate. Affect is WNL. Insight is appropriate. Results & Data Results & Data ([facility]) Vital Signs (Past 12 Hours) Vital Signs Temp Pulse Pulse Resp BP BP BP 01/22/21 03:32 71 18 01/21/21 22:49 85 154/97 H 01/21/21 22:30 37.1 C 85 22 150/91 H 01/21/21 22:26 80 25 H 01/21/21 21:00 36.6 C 78 20 156/105 H 01/21/21 20:30 78 21 01/21/21 20:15 76 19 160/93 H 01/21/21 20:00 77 20 164/116 H 01/21/21 19:45 186/107 H 01/21/21 19:30 164/99 H 01/21/21 19:15 165/104 H 01/21/21 19:09 172/106 H 01/21/21 17:45 80 160/101 H 01/21/21 17:30 80 21 155/101 H Pulse Ox 01/22/21 03:32 95 01/21/21 22:49 01/21/21 22:30 95 01/21/21 22:26 99 01/21/21 21:00 93 01/21/21 20:30 01/21/21 20:15 99 01/21/21 20:00 99 01/21/21 19:45 99 01/21/21 19:30 97 01/21/21 19:15 95 01/21/21 19:09 97 01/21/21 17:45 99 01/21/21 17:30 99 Resident Activity Tracking Resident Involvement: Resident Care Provided Care Provided: Adult Hospital Medicine (1) GERD (gastroesophageal reflux disease) Esophagitis presence: esophagitis presence not specified Qualified Code(s): K21.9 - Gastro-esophageal reflux disease without esophagitis"
[2021-01-22 07:35] LABS: Hemoglobin 13.7 g/dL (14.0-18.0); Mean Corpuscular Hemoglobin 27.6 pg (25-34); Mean Corpuscular Hgb Conc 33.4 g/dL (32-36); Mean Corpuscular Volume 82.7 fL (80-100); RDW Coefficient of Variation 16.1 % (11.5-14.5); Red Blood Count 4.96 M/uL (4.7-6.1); White Blood Count 4.51 K/uL (4.8-10.8)
[2021-01-22 07:38] LABS: Mean Platelet Volume 9.2 fL (7.4-10.4); Platelet Count 95 K/uL (130-400)
[2021-01-22] MEDS: carvediloL 12.5 MG TAB PO SCH (07:45)
[2021-01-22] MEDS: VENLAFAXINE HCL 37.5 MG TAB PO SCH (07:45)
[2021-01-22] MEDS: DOXYCYCLINE HYCLATE 100 MG CAP PO SCH (07:45)
[2021-01-22 07:50] LABS: Basophils # (auto) 0.02 K/uL (0-0.2); Basophils % (auto) 0.4 %; Eosinophils # (auto) 0.17 K/uL (0-0.5); Eosinophils % (auto) 3.8 %; Immature Granulocytes # (auto) 0.01 K/uL (0.00-0.02); Immature Granulocytes % (auto) 0.2 %; Lymphocytes # (auto) 1.18 K/uL (1.2-3.4); Lymphocytes % (auto) 26.2 %; Monocytes # (auto) 0.59 K/uL (0.11-0.59); Monocytes % (auto) 13.1 %; Neutrophils # (auto) 2.54 K/uL (1.4-6.5); Neutrophils % (auto) 56.3 %
[2021-01-22 07:55] LABS: BUN Creatinine Ratio 13.4 (10-20); Calcium 8.7 mg/dl (8.5-10.1); Creatinine Clr Calc Pharmacy 91.8 ml/min; Est GFR (African American) 91.6 ml/min; Potassium 3.7 mmol/L (3.5-5.1)
[2021-01-22 07:56] LABS: Prothrombin Time 36.3 Seconds (9.0-12.0)
[2021-01-22] MEDS ORDERED: PANTOprazole 40 MG TAB PO SCH (09:00)
[2021-01-22] MEDS ORDERED: WARFARIN SOD 2 MG TAB PO SCH (16:00)
--- NOTE | 2021-01-22 16:13 | Discharge Summary ---
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 Today, patient was called for follow up and he reported progressive RLE pain and swelling since discharge. It was initially noted on exam yesterday that patient had some increased RLE swelling compared to LLE and a venous doppler study was ordered (01/20/21) which revealed age indeterminant but chronic appearing nonocclusive thrombus within the common femoral, superficial femoral, and popliteal veins but no acute findings. He states that since being discharged from the hospital yesterday, he has had progressive swelling and pain in the right lower leg. Pain is now present from ankle to right groin. He states that after discharge, they went to [facility] to brick picker his abx but then returned home. Upon return home, he sat in his lift chair with legs elevated watching TV. He then went to bed, where he typically wears SCDs, but he was unable to tolerate the SCDs due to the swelling and pain; this is not typical for him. Due to being unable to tolerate the SCDs, he tried to put on thigh-high compression stockings but he was also unable to tolerate those. Patient also notes that some of the lesions on his right gil "scabbed off" and there was some yellow discharge. He denies any recurrent fevers, chills, SOB, CP, or GI symptoms. Admission Exam Per Admitting Provider GENERAL: No acute distress. Well developed and well nourished. Vital signs reviewed as above. EYES: EOMI. Anicteric sclerae. HENT: Moist mucous membranes. RESPIRATORY: Normal respiratory effort. Mild bilateral lower lobe rales. CARDIOVASCULAR: Regular rate and rhythm. No murmurs. ABDOMEN: Soft, non-tender and non-distended. Normal bowel sounds. EXTREMITIES: 2-3+ RLE edema. 1+ LLE edema. Significant tenderness to palpation to RLE both anterior and posterior aspects. SKIN: Warm, dry. Multiple lesions to right gil, scabbed, no active discharge or bleeding. NEUROLOGIC: A/O x3. No focal neurological deficits. PSYCHIATRIC: Cooperative. Appropriate mood and affect. Principal Diagnosis RLE cellulitis Discharge Exam General: Well-appearing 75-year-old gentleman who is lying back in his hospital bed, relaxed upon my arrival. No acute distress. HEENT: NCAT. Eyes - Sclera are white, anicteric, and without injection. PERRL. Mouth - MMM with no tonsillar edema or exudates. Cardiac: Normal rate and regular rhythm; S1 and S2 present with no murmurs, rubs, or gallops. Pulmonary: Good respiratory effort with symmetric expansion of the chest. No use of accessory muscles. Lungs were clear to auscultation bilaterally with no crackles or wheezes. Abdominal: Normoactive bowel sounds. Abdomen was soft, nondistended, and non- tender to palpation. Dermatologic: Examination of the right lower extremity does reveal significant enlargement of the calf when compared to the left side. There is violaceous discoloration extending just into the mid calf region, with patchy areas of erythema. This whole entire region does demonstrate glossiness and is nonblanchable. There is significant tenderness to palpation along the posterior calf. There is approximately 2+ pitting edema in this area. Capillary refill is 2 seconds. Sensation to light touch intact. Psych: Well-developed, well-nourished, appropriately dressed for occasion. Behavior is cooperative and appropriate. Affect is WNL. Insight is appropriate. 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 RLE Cellulitis -- in setting of chronic venous insufficiency and partially- positive BCX with similar profile as WCX in 02/2020 - Significant tenderness to palpation. Swelling worsened since discharge yesterday. - Borders drawn to monitor progress/recession of erythema. - Work-up significant for following: - BCX from 01/20 demonstrating 1/2 positive for coagulase negative Staph - BCX from 01/18 demonstrating 1/2 positive for Group G strep - resistant to macrolides - WCX from 02/2020 from LEFT leg -- (+) for MSSA and Group G strep -- same sensitivities as above - RLE Doppler (01/20, 01/21): Chronic DVTs (new from 2018), however no evidenc e of acute DVT - Repeat BCX drawn, pending on discharge - await and f/u results, however, low suspicion for bloodstream infection (see below) - Suspect BCX are contaminants and more likely outbound telemarketing representative of skin nicole (i.e., contaminants) - Ancef while in hospital. Transition to Keflex 500 mg t.i.d. x 6 days on discharge (end 01/28) for Strep WOUND coverage - Insufficiency: Elevation. Compression when appropriate. History of PEs / Chronic Anticoagulation on Warfarin therapy - INR on discharge 01/20 was 1.7 --> INR on admission (01/21) at 3.4 --> (01/22) 4.0 - Dopplers, as above, demonstrating unchanged chronic DVTs of RLE - Hold Warfarin given uptrending INR. 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 x 14 days -- end 02/02/21 --> of note, will continue alongside 1st gen cephalosporin given doxy's questionable vs. suboptimal coverage of this Strep spp. Hypertension - Continue home Carvedilol - TTE during last admission: normal biventricular function, LVEF 65% GERD -Continue home Lansoprazole BRITTNEY - continue CPAP use qhs - encourage weight loss and nutritional changes (more fruits and veggies, heart- healthy diet) Chronic Venous Insufficiency - compression stockings - encourage activity and walking around, good infection prevention (keep wounds and cuts clean; do not allow dog to lick leg wounds) Anxiety -Well controlled on home medications -Continue home Venlafaxine, continue home xanax PRN Code - Patient identifies as DNR/DNI (2) Tick-borne disease: (3) Essential hypertension: (4) History of pulmonary embolus (PE): (5) GERD (gastroesophageal reflux disease): (6) Obstructive sleep apnea syndrome: (7) Chronic venous insufficiency: (8) Anxiety: Total Time Total Time Spent Total Time Spent (In Minutes): <30 Discharge Plan Discharge Items Patient Disposition: Home - Self-Care Reason For Visit: CELLULITIS Discharge Diagnosis: cellulitis anaplasmosis Activity: Per Instructions section Non-emergency contact: Primary Care Provider Call non-emergency contact if: your symptoms worsen, your pain is not controlled, your pain is worsening, your temperature is above 101, your wound has increased redness, your wound has increased drainage and your wound pain has increased Follow-up/Referrals: Haydee Mondragon DO [Primary Care Provider] - 01/31/21 9:20 am Diet: Regular Addtl Attending Provider Instructions: [facility] were seen in [facility] for evaluation of right leg pain. Upon your evaluation here, you were discovered to have an infection of skin (cellulitis). These types of skin infections happen in individuals with incompetent veins, which usually causes fluid to pool in the legs and harbor infection. To help treat this infection, you were started on an antibiotic called Keflex, which you are to continue for the next 6 days (end January 28). Please take this medication 3 times daily, approximately 8 hours apart. Please HOLD from taking Warfarin until your INR is checked Sunday (it was mildly elevated while here, INR = 4 on 01/22). After your INR is rechecked on Sunday, your [facility] clinic team will tell you how to resume the medication. Please continue the doxycycline you were started on your previous admission, as this covers your tickborne infection. Please follow-up with your primary care provider within 1 week to review this visit. At that time, please review medications. In the interim, if you experience any worsening fevers, chills, night sweats, worsening leg pain, chest pain, shortness of breath, lightheadedness, or other worrisome symptoms, please report to the ER for immediate evaluation. Best in your recovery. Pending Studies at Discharge: No Stand-Alone Forms: [facility], Smoking Cessation Medications and DC Order Prescriptions: New cephalexin 500 mg capsule 500 mg PO Q8H 6 Days Qty: 18 RF: 0 Continued aspirin [Adult Aspirin Regimen] 81 mg tablet,delayed release (DR/EC) 81 mg PO HS RF: 0 Men's 50 Plus Multivitamin 400-20-370 mcg tablet 1 tab PO 3XWK RF: 0 lansoprazole 15 mg capsule,delayed release(DR/EC) 15 mg PO DAILY Qty: 90 RF: 2 venlafaxine 37.5 mg tablet 37.5 mg PO BID Qty: 180 RF: 1 carvedilol 12.5 mg tablet 12.5 mg PO BID Qty: 180 RF: 1 warfarin 2 mg tablet See Rx Instructions PO UD Qty: 90 RF: 1 alprazolam [Xanax] 0.5 mg tablet 0.5 mg PO BID PRN (Reason: anxiety) Qty: 60 RF: 0 acetaminophen 650 mg tablet extended release 650 mg PO QID PRN (Reason: FEVER/PAIN) RF: 0 (DME) CPAP Machine Misc See Rx Instructions .MEDSUPPLY Qty: 1 RF: 0 calcium carbonate-vitamin D3 500 mg(1,250mg) -125 unit Tablet 1 tab PO DAILY RF: 0 doxycycline hyclate 100 mg capsule 100 mg PO BID 12 Days Qty: 24 RF: 0 Discharge Orders: Discharge Order (Routine); Ordered 01/22/21 Ordered By: Barndon Mccann/Other Patient Handouts: ED Cellulitis Admission Data Admit Date/Time: 01/21/21 17:19 Attending Provider: Brandon Power Admit Provider: Jacque Flores Primary Care Provider: Haydee Mondragon Other Interventions: Discharge Summary Assessment (RN) Last Done: 01/22/21 16:27 Supervising Physician Co-Signing Physician Notes I personally examined the patient and verified all lindo points of history and exam, discussed case, and agree with decision making with Dr Dias leg feeling a little better, can walk. discussed options/risks/benefits of different approaches, pt prefers outpt Rx Vitals noted, in general he is awake and alert pleasant no distress. HEENT normocephalic atraumatic mucous membranes are moist. Breathing unlabored no accessory muscle use good effort. Right lower extremity with diffuse erythema fairly similar in distribution to yesterday, may be slightly receded, but definitely less tender and tense. No exudate no crepitus. 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 Seems to be stabilizing and starting to improve on Ancefdiscussed options, risk/benefits, as far as continuing Ancef and following inpatient versus switching to Keflex and discharging homehe understood risks and benefits well and much prefer to go home. Positive blood culturessee prior notes, but with hindsight, fortunately all appears to have been contaminant Presumed anaplasmosissee prior hospital staycontinue doxycycline for this DVTCoumadin, next INR check Sunday Resident Activity Tracking Resident Involvement: Resident Care Provided Care Provided: Adult Hospital Medicine
--- NOTE | 2021-01-22 19:25 | Billing Data ---
Date of Service January 22, 2021 Coding Level of Care Code 86714 OBS Care - Discharge
[2021-01-24] MEDS ORDERED: WARFARIN SOD 3 MG TAB PO SCH (16:00)
== END 2021-01-22 18:20 | disposition home or self-care (01) ==
LOC: 3E 13:45 → ED 13:45 → 3E 20:45

== ENCOUNTER 2021-08-28 14:47 | Inpatient (IN) ==
[2021-08-28] MEDS ORDERED: ACETAMINOPHEN 1,000 MG/100 ML VIAL IV STA (15:34)
[2021-08-28 15:53] LABS: Appearance Urine Clear (Clear); Bacteria Urine Automated Negative (Negative); Bilirubin Urine Negative (Negative); Blood Urine 2+ (Negative); Color Urine Yellow; Glucose Urine UA Negative (Negative); Ketones Urine Negative (Negative); Leukocyte Esterase Urine Negative (Negative); Nitrite Urine Negative (Negative); Protein Urine Negative (Negative); RBC Urine Automated >30 /hpf (0-4); Specific Gravity Urine 1.014 (1.000-1.030); Urobilinogen Urine Negative (Negative); pH Urine 6.5 (4.5-7.5)
[2021-08-28 16:06] LABS: Basophils # (auto) 0.01 K/uL (0-0.2); Basophils % (auto) 0.1 %; Eosinophils # (auto) 0.34 K/uL (0-0.5); Eosinophils % (auto) 4.3 %; Hematocrit (blood only) 34.6 % (42-52); Immature Granulocytes # (auto) 0.01 K/uL (0.00-0.02); Immature Granulocytes % (auto) 0.1 %; Lymphocytes # (auto) 1.24 K/uL (1.2-3.4); Lymphocytes % (auto) 15.8 %; Mean Corpuscular Hemoglobin 25.3 pg (25-34); Mean Corpuscular Hgb Conc 31.8 g/dL (32-36); Mean Corpuscular Volume 79.5 fL (80-100); Mean Platelet Volume 9.7 fL (7.4-10.4); Monocytes % (auto) 10.2 %; Neutrophils # (auto) 5.44 K/uL (1.4-6.5); Neutrophils % (auto) 69.5 %; Platelet Count 289 K/uL (130-400); RDW Coefficient of Variation 14.6 % (11.5-14.5); RDW Standard Deviation 42.2 fL (36.4-46.3); Red Blood Count 4.35 M/uL (4.7-6.1); White Blood Count 7.84 K/uL (4.8-10.8)
[2021-08-28 16:07] LABS: Albumin Globulin Ratio 0.6 (0.9-2); Albumin Level 2.4 gm/dl (3.4-5.0); BUN Creatinine Ratio 14.5 (10-20); Bilirubin,Total 1.1 mg/dl (0.2-1.0); Calcium 8.4 mg/dl (8.5-10.1); Creatinine Clr Calc Pharmacy 102.7 ml/min; Est GFR (African American) 103.4 ml/min; Est GFR (Non-African American) 89.2 ml/min; Globulin 3.7 gm/dl (2.5-4.0); Magnesium 1.8 mg/dl (1.7-2.4); Phosphorus 3.1 mg/dl (2.5-4.9); Potassium 3.2 mmol/L (3.5-5.1); Total Protein 6.1 gm/dl (6.0-8.3)
[2021-08-28 16:12] LABS: Prothrombin Time 56.9 Seconds (9.0-12.0)
--- NOTE | 2021-08-28 16:16 | XRay Report ---
XR chest 1V portable CLINICAL HISTORY: Atypical chest pain. COMPARISON STUDY: Chest radiograph August 08, 2021. Chest CT May 26, 2021. FINDINGS: Small left pleural effusion has decreased in size since prior exam. There is persistent lef t basilar opacity. No pneumothorax is present. Skin folds project over the left chest. Cardiac size i s normal. No evidence for pulmonary edema. IMPRESSION: Small left pleural effusion, decreased in size since prior exam. Persistent left basilar opacity which could reflect atelectasis or consolidation. Radiographic follow-up to ensure resolutio n is recommended. ACT 112: Negative or not required by law. Electronically signed by: Carlos Seaman M.D. 08/28/2021 4:15 PM
--- NOTE | 2021-08-28 16:20 | XRay Report ---
XR knee RT 3V CLINICAL HISTORY: pain, unable to walk COMPARISON: CT of the right lower leg December 12, 2017. Knee radiographs February 26, 2019. FINDINGS: No acute fracture is identified. A large right knee joint effusion is present. Severe medi al compartment osteoarthritis is present. There is moderate patellofemoral compartment osteoarthritis . Diffuse soft tissue swelling is noted. IMPRESSION: 1. No acute fracture. 2. Severe right knee osteoarthritis, most pronounced within the medial compartment. 3. Large joint effusion and diffuse soft tissue swelling. ACT 112: Negative or not required by law. Electronically signed by: Carlos Seaman M.D. 08/28/2021 4:17 PM
--- NOTE | 2021-08-28 16:20 | XRay Report ---
XR knee LT 3V CLINICAL HISTORY: pain, unable to walk COMPARISON: Knee radiographs February 26, 2019. FINDINGS: No acute fracture is noted. There is marked medial compartment joint space narrowing. Mode rate osteoarthritis within the patellofemoral compartment is present. Moderate size joint effusion is noted. There is diffuse soft tissue swelling. IMPRESSION: 1. No acute fracture. 2. Severe left knee osteoarthritis, most pronounced within the medial compartment. 3. Moderate-sized left knee joint effusion. Diffuse soft tissue swelling. ACT 112: Negative or not required by law. Electronically signed by: Carlos Seaman M.D. 08/28/2021 4:18 PM
[2021-08-28 16:22] LABS: INR 5.9 (0.9-1.1)
--- NOTE | 2021-08-28 16:47 | Emergency Department Note ---
Impression & Plan Osteoarthritis of knees, bilateral, Bilateral knee effusions, Ambulatory dysfunction, Supratherapeutic INR ED Provider Note NAME: HANS LAY AGE: 75 SEX: M ARRIVES VIA: Ambulance INFORMANT: Patient ED PROVIDER(S): Lester Sahni MD CHIEF COMPLAINT: Unable to walk. Knee pain. PLAN: Disposition: Admit MEDICAL DECISION MAKING: The patient is a pleasant 75-year-old gentleman with a past medical history of chronic lymphedema, bilateral knee pain/osteoarthritis, anemia, history of PE on warfarin, BRITTNEY, restless leg syndrome, GERD, CKD, hypertension who presents to the emergency department via EMS from home for worsening bilateral knee pain in the setting of severe osteoarthritis which today reached a point where he reports he could not get up and bear weight on his legs due to the pain. He reports he has seen orthopedics and feels that he needs knee replacements but is unclear whether or not a plan has been reached regarding this. Patient reports he is agreeable to be admitted today given he is unable to ambulate due to his pain. Patient was seen in the emergency department several weeks ago for ambulatory dysfunction secondary to ankle and wrist pain but at that time elected to proceed with outpatient management. He denies any fevers, chills, cough, congestion, GI or symptoms. On arrival, the patient is chronically ill-appearing but no acute distress, afebrile stable vital signs. Bilateral lower extremities demonstrate chronic lymphedema without erythema warmth or tenderness to palpation of the lower legs. Passive range of motion of bilateral knees does elicit pain. He is able to extend his knees fully. Patient does have a superficial right gluteal decubitus ulcer indicating the patient's recent decreased mobility which he reports has been in for the past couple of months or more. EKG without overt acute ischemia. CXR negative for acute cardiopulmonary process with improved small left pleural effusion and likely left basilar atelectasis. WBC within normal limits. Platelets within normal limits. H/H 11/34.6 decreased from 13/40 several weeks ago however approximate to prior range of values. INR is supratherapeutic at 5.9. Chemistry without metabolic acidosis. Potassium 3.2 and electrolytes otherwise without significant abnormality. High- sensitivity troponin 8.0, within normal limits. BNP 174 in the setting of the patient's chronic diastolic heart failure. Lipase is not elevated. UA without convincing evidence of infection. Covid-19 RNA, NAAT negative. Given patient's decrease mobility where he is able to care for himself at home will proceed with admission for pt/ot and possible placement. Unable to placed directly to rehab from ED per CM. Case was discussed with Dr. Salazar, [facility] hospitalist, who will evaluate the patient for admission. Triage Nursing notes reviewed and agree them. Prior medical records reviewed Vital Signs: reviewed and remarkable for no significant abnormalities Differential diagnosis: Infection, dehydration, metabolic abnormality, hypo/hyperglycemia, electrolyte disturbance, anemia, hypoxia, cardiac sources, intracerebral event, toxicologic, neurologic, as well as other pathologies. ER treatment provided: See below. Diagnostics interpreted by me: ECG: Sinus rhythm with PACs, 83 bpm, no ectopy, nonspecific ST abnormality, no overt ST elevation or depression, QTC 443, QRS 78. Cardiac Monitoring: An order for continuous cardiac monitoring was placed and demonstrated sinus rhythm with PACs, 83 bpm, no ectopy. Laboratory studies: See below Imaging studies: See below Consultation(s): Dr. Salazar [facility] hospitalist. HPI: The patient is a pleasant 75-year-old gentleman with a past medical history of chronic lymphedema, bilateral knee pain/osteoarthritis, anemia, history of PE on warfarin, BRITTNEY, restless leg syndrome, GERD, CKD, hypertension who presents to the emergency department via EMS from home for worsening bilateral knee pain in the setting of severe osteoarthritis which today reached a point where he reports he could not get up and bear weight on his legs due to the pain. He reports he has seen orthopedics and feels that he needs knee replacements but is unclear whether or not a plan has been reached regarding this. Patient reports he is agreeable to be admitted today given he is unable to ambulate due to his pain. Patient was seen in the emergency department several weeks ago for ambulatory dysfunction secondary to ankle and wrist pain but at that time elected to proceed with outpatient management. He denies any fevers, chills, cough, congestion, GI or symptoms. ROS: See above HPI for pertinent positives & negatives. A total of 10 systems reviewed and were otherwise negative. VITALS:See Below PHYSICAL EXAMINATION: GENERAL: Awake, alert, chronically ill-appearing, in no distress, BMI 29.0. HENT: Normocephalic, atraumatic. Oropharynx unremarkable. EYES: Normal conjunctiva. Sclera non-icteric. NECK: Supple. No nuchal rigidity. FROM. No JVD. RESPIRATORY: Clear to auscultation. CARDIAC: Regular rate, normal rhythm. Extremities warm and well perfused. Pulses equal. ABDOMEN: Soft, non-distended. No tenderness to palpation. No rebound or guarding. No masses. RECTAL: Deferred. MUSCULOSKELETAL: Chest examination reveals no tenderness. The back is symmetrical on inspection without obvious abnormality. Passive range of motion of bilateral knees does elicit pain. He is able to extend his knees fully. Mild-moderate knee effusions bilaterally. No warmth or discoloration. LOWER EXTREMITIES: Bilateral lower extremities demonstrate chronic lymphedema without erythema warmth or tenderness to palpation of the lower legs. Chronic venous skin changes. Calves are nontender bilaterally. NEURO: No focal sensory or motor deficits noted. SKIN: Superficial right gluteal decubitus ulcer without underlying fluctuance or discharge. No jaundice noted. Lester Sahni MD Past Med/Surg History Medical History Anxiety Arthritis of knee, left Arthritis of knee, right Chronic kidney disease, stage 3 (moderate) pt denies Chronic venous insufficiency DVT (deep venous thrombosis) Per patient, ~1997. 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 five total of 5 blood clots in hx, most recent 7 yr ago Essential hypertension GERD (gastroesophageal reflux disease) Gum disease History of cellulitis History of colon cancer 1992; sx intervention ; hx chemo History of pulmonary embolus (PE) [place] (hard of hearing) Interstitial lung disease pt denies Obstructive sleep apnea syndrome cpap On anticoagulant therapy Prediabetes pt denies Restless legs syndrome pt denies Thoracic aortic aneurysm pt denies Surgical History History of colonoscopy History of endoscopy REMOTE History of eyelid surgery History of tonsillectomy S/P partial colectomy (1992) hx ; removed some of liver, lymph nodes and appendix with this surgery Family History Unknown Hypertension Father Lung disease Cancer Mother Coronary heart disease Myocardial infarction Family history of diabetes mellitus Son BRITTNEY (obstructive sleep apnea) Brother Family history of diabetes mellitus Sister Family history of diabetes mellitus Denies family history of Ovarian cancer Prostate cancer Breast cancer Colorectal cancer Social History Smoking Status: Former smoker Tobacco Type: Cigarettes Age Started Using Tobacco: 12; packs per day: 2; Second Hand Exposure: No; Hx Alcohol Use: No Hx Substance Use: No Preferred Language: Polish Communication Ability: Effective Visual Impairment: Severely Limited Hearing Ability: Normal Credit Products Officer Required: No Beliefs That Will Affect Care: None marital status: Current Living Situation: Spouse Current Living Situation Comment: 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 occupational status: retired How many Children do You have: 1 How many Children do You have Comment: children are local and able to assist as needed Feels Safe at Home: Yes Safety Concerns: Feels Safe At This Time Diet Comment: has meals on wheels during the past year weight has: remained stable Dental Care, Regularly: No Physical Activity Frequency: 1-2 Times per Week Seatbelt Use: always Sunscreen Use: Yes Assistive Devices: Cane, CPAP, Hearing Aid - Bilateral and Walker Allergies Allergies Allergy/AdvReac Type Severity Reaction Status Date / Time No Known Allergies Allergy Verified 08/28/21 15:39 Home Meds Home Medications Medication Instructions Recorded Confirmed aspirin 81 mg tablet,delayed 81 mg PO DAILY tab 12/21/17 08/28/21 release (Adult Aspirin Regimen) adsvhtaatrkl-omc-nunrf acid-vit 1 tab PO DAILY tab 12/01/20 08/28/21 K-lycop 400 mcg-20 mcg-370 mcg tablet (Men's 50 Plus Multivitamin) calcium carbonate 500 mg-vitamin 1 tab PO QAM 01/18/21 08/28/21 D3 3.125 mcg (125 unit) tablet warfarin 2 mg tablet 2 mg PO QPM 07/14/21 08/28/21 acetaminophen 500 mg tablet 1,000 mg PO Q6H PRN 08/28/21 08/28/21 (Tylenol Extra Strength) alprazolam 0.5 mg tablet (Xanax) 0.5 mg PO BID 08/28/21 08/28/21 lansoprazole 15 mg capsule,delayed 15 mg PO DAILY 08/28/21 08/28/21 release Previous Rx's Medication Instructions Recorded CPAP Machine #1 ea 01/01/20 venlafaxine 37.5 mg tablet 37.5 mg PO BID #180 tab 06/07/21 carvedilol 12.5 mg tablet 12.5 mg PO BID #180 tab 07/12/21 Results & Data (ED) Vital Signs Vital Signs - 24 hr 08/28/21 15:02 08/28/21 15:35 08/28/21 15:46 Temperature 36.8 C Temperature Source Oral Pulse Rate 84 83 Pulse Rate [Apical] 83 Respiratory Rate 18 18 18 Respiratory Effort / Characteristics Non-Labored Spontaneous Non-Labored Spontaneous Respiratory Depth Normal Normal Respiratory Pattern Regular Regular Blood Pressure 154/102 H Blood Pressure [Right Arm] 172/114 H Blood Pressure Mean 119 Blood Pressure Mean [Right Arm] 133 Blood Pressure Position Sitting Blood Pressure Position [Right Arm] Sitting Pulse Oximetry 95 95 96 Oxygen Delivery Method Room Air Room Air Room Air Sepsis Recent Fever Within 48 Hours No Sepsis New/Unexplained Change in Mental Status N/A Sepsis Action Taken by Nursing No Action Required 08/28/21 17:00 Temperature Temperature Source Pulse Rate Pulse Rate [Apical] 80 Respiratory Rate 18 Respiratory Effort / Characteristics Non-Labored Spontaneous Respiratory Depth Normal Respiratory Pattern Regular Blood Pressure Blood Pressure [Right Arm] 118/80 Blood Pressure Mean Blood Pressure Mean [Right Arm] 92 Blood Pressure Position Blood Pressure Position [Right Arm] Sitting Pulse Oximetry 97 Oxygen Delivery Method Room Air Sepsis Recent Fever Within 48 Hours Sepsis New/Unexplained Change in Mental Status Sepsis Action Taken by Nursing Laboratory Data Attestation: I reviewed the patient's lab results. Result diagrams: 08/28/21 15:13 08/28/21 15:13 Lab Results 08/28/21 08/28/21 08/28/21 Range/Units 15:13 15:13 15:13 WBC 7.84 (4.8-10.8) K/uL RBC 4.35 L (4.7-6.1) M/uL Hgb 11.0 L (14.0-18.0) g/dL Hct 34.6 L (42-52) % MCV 79.5 L (80-100) fL MCH 25.3 (25-34) pg MCHC 31.8 L (32-36) g/dL RDW Std Deviation 42.2 (36.4-46.3) fL RDW Coeff of Scooter 14.6 H (11.5-14.5) % Plt Count 289 (130-400) K/uL MPV 9.7 (7.4-10.4) fL Immature Gran % (Auto) 0.1 % Neut % (Auto) 69.5 % Lymph % (Auto) 15.8 % Power % (Auto) 10.2 % Eos % (Auto) 4.3 % Baso % (Auto) 0.1 % Neut # (Auto) 5.44 (1.4-6.5) K/uL Lymph # (Auto) 1.24 (1.2-3.4) K/uL Power # (Auto) 0.80 H (0.11-0.59) K/uL Eos # (Auto) 0.34 (0-0.5) K/uL Baso # (Auto) 0.01 (0-0.2) K/uL Immature Gran # (Auto) 0.01 (0.00-0.02) K/uL ESR (0-20) mm/hr PT 56.9 H (9.0-12.0) Seconds INR 5.9 H* (0.9-1.1) Sodium 139 (136-145) mmol/L Potassium 3.2 L (3.5-5.1) mmol/L Chloride 104 (98-107) mmol/L Carbon Dioxide 29 (21-32) mmol/L Anion Gap 6 (3-11) BUN 11 (6-23) mg/dl Creatinine 0.76 (0.6-1.4) mg/dl Est Cr Clr Drug Dosing 102.7 ml/min Est GFR ( Amer) 103.4 ml/min Est GFR (Non-Af Amer) 89.2 ml/min BUN/Creatinine Ratio 14.5 (10-20) Glucose 100 H (70-99(Fasting)) mg/dl Calcium 8.4 L (8.5-10.1) mg/dl Phosphorus 3.1 (2.5-4.9) mg/dl Magnesium 1.8 (1.7-2.4) mg/dl Total Bilirubin 1.1 H (0.2-1.0) mg/dl AST 27 (13-39) U/L ALT 15 (7-52) U/L Alkaline Phosphatase 50 (34-104) U/L Troponin I High Sens 8.0 D (0-20) pg/ml C-Reactive Protein (0-0.5) mg/dl B-Natriuretic Peptide (0-100) pg/ml Total Protein 6.1 (6.0-8.3) gm/dl Albumin 2.4 L (3.4-5.0) gm/dl Globulin 3.7 (2.5-4.0) gm/dl Albumin/Globulin Ratio 0.6 L (0.9-2) Lipase 13 (11-82) U/L Urine Color Urine Appearance (Clear) Urine pH (4.5-7.5) Ur Specific [place] (1.000-1.030) Urine Protein (Negative) Urine Glucose (UA) (Negative) Urine Ketones (Negative) Urine Blood (Negative) Urine Nitrite (Negative) Urine Bilirubin (Negative) Urine Urobilinogen (Negative) Ur Leukocyte Esterase (Negative) Urine WBC (Auto) (0-5) /hpf Urine RBC (Auto) (0-4) /hpf U Hyaline Cast (Auto) (0-5) /lpf U Epithel Cells (Auto) (0-5) /lpf Urine Bacteria (Auto) (Negative) SARS-CoV-2, RNA, NAAT (NEGATIVE) 08/28/21 08/28/21 08/28/21 Range/Units 15:13 15:13 15:21 WBC (4.8-10.8) K/uL RBC (4.7-6.1) M/uL Hgb (14.0-18.0) g/dL Hct (42-52) % MCV (80-100) fL MCH (25-34) pg MCHC (32-36) g/dL RDW Std Deviation (36.4-46.3) fL RDW Coeff of Scooter (11.5-14.5) % Plt Count (130-400) K/uL MPV (7.4-10.4) fL Immature Gran % (Auto) % Neut % (Auto) % Lymph % (Auto) % Power % (Auto) % Eos % (Auto) % Baso % (Auto) % Neut # (Auto) (1.4-6.5) K/uL Lymph # (Auto) (1.2-3.4) K/uL Power # (Auto) (0.11-0.59) K/uL Eos # (Auto) (0-0.5) K/uL Baso # (Auto) (0-0.2) K/uL Immature Gran # (Auto) (0.00-0.02) K/uL ESR 66 H (0-20) mm/hr PT (9.0-12.0) Seconds INR (0.9-1.1) Sodium (136-145) mmol/L Potassium (3.5-5.1) mmol/L Chloride (98-107) mmol/L Carbon Dioxide (21-32) mmol/L Anion Gap (3-11) BUN (6-23) mg/dl Creatinine (0.6-1.4) mg/dl Est Cr Clr Drug Dosing ml/min Est GFR ( Amer) ml/min Est GFR (Non-Af Amer) ml/min BUN/Creatinine Ratio (10-20) Glucose (70-99(Fasting)) mg/dl Calcium (8.5-10.1) mg/dl Phosphorus (2.5-4.9) mg/dl Magnesium (1.7-2.4) mg/dl Total Bilirubin (0.2-1.0) mg/dl AST (13-39) U/L ALT (7-52) U/L Alkaline Phosphatase (34-104) U/L Troponin I High Sens (0-20) pg/ml C-Reactive Protein 13.18 H (0-0.5) mg/dl B-Natriuretic Peptide (0-100) pg/ml Total Protein (6.0-8.3) gm/dl Albumin (3.4-5.0) gm/dl Globulin (2.5-4.0) gm/dl Albumin/Globulin Ratio (0.9-2) Lipase (11-82) U/L Urine Color Yellow Urine Appearance Clear (Clear) Urine pH 6.5 (4.5-7.5) Ur Specific [place] 1.014 (1.000-1.030) Urine Protein Negative (Negative) Urine Glucose (UA) Negative (Negative) Urine Ketones Negative (Negative) Urine Blood 2+ H (Negative) Urine Nitrite Negative (Negative) Urine Bilirubin Negative (Negative) Urine Urobilinogen Negative (Negative) Ur Leukocyte Esterase Negative (Negative) Urine WBC (Auto) 1-5 (0-5) /hpf Urine RBC (Auto) >30 H (0-4) /hpf U Hyaline Cast (Auto) 1-5 (0-5) /lpf U Epithel Cells (Auto) 5-10 H (0-5) /lpf Urine Bacteria (Auto) Negative (Negative) SARS-CoV-2, RNA, NAAT (NEGATIVE) 08/28/21 08/28/21 Range/Units 15:26 15:44 WBC (4.8-10.8) K/uL RBC (4.7-6.1) M/uL Hgb (14.0-18.0) g/dL Hct (42-52) % MCV (80-100) fL MCH (25-34) pg MCHC (32-36) g/dL RDW Std Deviation (36.4-46.3) fL RDW Coeff of Scooter (11.5-14.5) % Plt Count (130-400) K/uL MPV (7.4-10.4) fL Immature Gran % (Auto) % Neut % (Auto) % Lymph % (Auto) % Power % (Auto) % Eos % (Auto) % Baso % (Auto) % Neut # (Auto) (1.4-6.5) K/uL Lymph # (Auto) (1.2-3.4) K/uL Power # (Auto) (0.11-0.59) K/uL Eos # (Auto) (0-0.5) K/uL Baso # (Auto) (0-0.2) K/uL Immature Gran # (Auto) (0.00-0.02) K/uL ESR (0-20) mm/hr PT (9.0-12.0) Seconds INR (0.9-1.1) Sodium (136-145) mmol/L Potassium (3.5-5.1) mmol/L Chloride (98-107) mmol/L Carbon Dioxide (21-32) mmol/L Anion Gap (3-11) BUN (6-23) mg/dl Creatinine (0.6-1.4) mg/dl Est Cr Clr Drug Dosing ml/min Est GFR ( Amer) ml/min Est GFR (Non-Af Amer) ml/min BUN/Creatinine Ratio (10-20) Glucose (70-99(Fasting)) mg/dl Calcium (8.5-10.1) mg/dl Phosphorus (2.5-4.9) mg/dl Magnesium (1.7-2.4) mg/dl Total Bilirubin (0.2-1.0) mg/dl AST (13-39) U/L ALT (7-52) U/L Alkaline Phosphatase (34-104) U/L Troponin I High Sens (0-20) pg/ml C-Reactive Protein (0-0.5) mg/dl B-Natriuretic Peptide 174 H (0-100) pg/ml Total Protein (6.0-8.3) gm/dl Albumin (3.4-5.0) gm/dl Globulin (2.5-4.0) gm/dl Albumin/Globulin Ratio (0.9-2) Lipase (11-82) U/L Urine Color Urine Appearance (Clear) Urine pH (4.5-7.5) Ur Specific [place] (1.000-1.030) Urine Protein (Negative) Urine Glucose (UA) (Negative) Urine Ketones (Negative) Urine Blood (Negative) Urine Nitrite (Negative) Urine Bilirubin (Negative) Urine Urobilinogen (Negative) Ur Leukocyte Esterase (Negative) Urine WBC (Auto) (0-5) /hpf Urine RBC (Auto) (0-4) /hpf U Hyaline Cast (Auto) (0-5) /lpf U Epithel Cells (Auto) (0-5) /lpf Urine Bacteria (Auto) (Negative) SARS-CoV-2, RNA, NAAT NEGATIVE (NEGATIVE) Administered Medications Acetaminophen (Acetaminophen 500 Mg Tab) 1,000 mg PO TID KALPANA Stop: 09/27/21 20:59 Last Admin: 08/28/21 20:42 Dose: 1,000 mg Documented by: [id number] Alprazolam (Alprazolam 0.5 Mg Tablet) 0.5 mg PO BID KALPANA Stop: 09/27/21 20:59 Last Admin: 08/28/21 20:49 Dose: 0.5 mg Documented by: [id number] Carvedilol (Carvedilol 12.5 Mg Tab) 12.5 mg PO BID KALPANA Stop: 09/27/21 20:59 Last Admin: 08/28/21 20:43 Dose: 12.5 mg Documented by: [id number] Diclofenac Sodium (Diclofenac Sod 1% Gel 100 Gm Tube) 2 gm EXT BID KALPANA Stop: 09/27/21 20:59 Last Admin: 08/28/21 20:43 Dose: 2 gm Documented by: [id number] Pantoprazole Sodium (Pantoprazole 40 Mg Tab) 40 mg PO BID KALPANA Stop: 09/27/21 20:59 Last Admin: 08/28/21 21:39 Dose: 40 mg Documented by: [id number] Potassium Chloride (Potassium Chloride Crtab 20 Meq Tabcr) 20 meq PO BID KALPANA Stop: 08/29/21 21:01 Last Admin: 08/28/21 20:44 Dose: 20 meq Documented by: [id number] Venlafaxine HCl (Venlafaxine Hcl 37.5 Mg Tab) 37.5 mg PO BID KALPANA Stop: 09/27/21 20:59 Last Admin: 08/28/21 20:44 Dose: 37.5 mg Documented by: [id number] Discontinued Medications Acetaminophen (Ofirmev) 1,000 mg in 100 mls @ 400 mls/hr IV NOW STA Stop: 08/28/21 15:48 Last Infusion: 08/28/21 15:55 Dose: 0 mls/hr Documented by: [id number] Admin: 08/28/21 15:40 Dose: 400 mls/hr Documented by: [id number] Phytonadione 2.5 mg/ Dextrose 50.25 mls @ 100.5 mls/hr IV ONE ONE Stop: 08/28/21 20:29 Last Infusion: 08/28/21 20:32 Dose: 0 mls/hr Documented by: [id number] Admin: 08/28/21 19:57 Dose: 100.5 mls/hr Documented by: [id number] Imaging Data Radiologist's Impression: Chest X-Ray 08/28/21 15:29 XR chest 1V portable CLINICAL HISTORY: Atypical chest pain. COMPARISON STUDY: Chest radiograph August 08, 2021. Chest CT May 26, 2021. FINDINGS: Small left pleural effusion has decreased in size since prior exam. There is persistent left basilar opacity. No pneumothorax is present. Skin folds project over the left chest. Cardiac size is normal. No evidence for pulmonary edema. IMPRESSION: Small left pleural effusion, decreased in size since prior exam. Persistent left basilar opacity which could reflect atelectasis or consolidation. Radiographic follow-up to ensure resolution is recommended. ACT 112: Negative or not required by law. Electronically signed by: Carlos Seaman M.D. 08/28/2021 4:15 PM Knee X-Ray 08/28/21 15:29 XR knee LT 3V CLINICAL HISTORY: pain, unable to walk COMPARISON: Knee radiographs February 26, 2019. FINDINGS: No acute fracture is noted. There is marked medial compartment joint space narrowing. Moderate osteoarthritis within the patellofemoral compartment is present. Moderate size joint effusion is noted. There is diffuse soft tissue swelling. IMPRESSION: 1. No acute fracture. 2. Severe left knee osteoarthritis, most pronounced within the medial compartment. 3. Moderate-sized left knee joint effusion. Diffuse soft tissue swelling. ACT 112: Negative or not required by law. Electronically signed by: Carlos Seaman M.D. 08/28/2021 4:18 PM Knee X-Ray 08/28/21 15:29 XR knee RT 3V CLINICAL HISTORY: pain, unable to walk COMPARISON: CT of the right lower leg December 12, 2017. Knee radiographs February 26, 2019. FINDINGS: No acute fracture is identified. A large right knee joint effusion is present. Severe medial compartment osteoarthritis is present. There is moderate patellofemoral compartment osteoarthritis. Diffuse soft tissue swelling is noted. IMPRESSION: 1. No acute fracture. 2. Severe right knee osteoarthritis, most pronounced within the medial compartment. 3. Large joint effusion and diffuse soft tissue swelling. ACT 112: Negative or not required by law. Electronically signed by: Carlos Seaman M.D. 08/28/2021 4:17 PM Discharge Plan Visit Data Chief Complaint: Swelling/Edema to Extremity Discharge Problem: Osteoarthritis of knees, bilateral, Bilateral knee effusions, Ambulatory dysfunction, Supratherapeutic INR Patient Disposition: Admitted As Inpatient Discharge Instructions Interventions: ED Discharge Assessment Last Done: 08/28/21 19:08
--- NOTE | 2021-08-28 17:01 | History & Physical Report ---
Date of Service August 28, 2021 Assessment & Plan (1) Osteoarthritis: Plan: Patient presents with significant knee pain preventing ambulation. Bilateral joint effusions are seen on plain films. Patient has a negative Lyme testing in 2020. Uric acid testing is pending orthopedic consultation for aspiration of joint to evaluate for crystal analysis or infection although clinically that does not appear to be signs of infection. elevated INR will delay intervention until INR is more acceptable Certainly multimodal pain control will be used including scheduled Tylenol topical nonsteroidals and as needed opiates for pain control. PT OT evaluation once orthopedics of completes evaluation for possibility of arthrocentesis (2) Lymphedema: Plan: Patient with chronic lower extremity lymphedema likely secondary to cor pulmonale which is influenced by sleep apnea and history of pulmonary embolism in the past the patient has had infections (3) Anemia: Plan: Patient has had intermittent anemia over time his INR is elevated and his hemoglobin is slightly down from his previous hemoglobin of 13 it is now 11. 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 He is supratherapeutic is given 2.5 mg of vitamin K p.o. and check INR daily holding warfarin on admission (5) Essential hypertension: Plan: Patient's blood pressure is elevated on presentation he will be maintained on high-dose carvedilol with as needed medications and dose increase as needed (6) Chronic kidney disease, stage 3 (moderate): Plan: Patient with a history of chronic kidney disease not on any nonsteroidals parenterally this will abuse topically will avoid nephrotoxic drugs and follow his renal function (7) History of pulmonary embolus (PE): Plan: Chronic anticoagulation, patient also has chronic changes in his lungs with fibrotic changes in the lower lobes bilaterally and also a fusiform thoracic aortic aneurysm is seen. 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 Patient has had bilateral joint effusions for some time in the past. Never been diagnosed with gout and previously has discussed knee replacements with orthopedist. Patient's pain is significant and prevents him from being able to function at home subsequently was brought to the ER. Patient previously has Lyme testing which was negative. In the emergency department the patient was given Tylenol COVID was negative on presentation Patient found to be supratherapeutic with his INR. He is mildly hypokalemic and anemic Allergies Allergy/AdvReac Type Severity Reaction Status Date / Time No Known Allergies Allergy Verified 08/28/21 15:39 Home Medications Medication Instructions Recorded Confirmed Type aspirin 81 mg tablet,delayed 81 mg PO DAILY tab 12/21/17 08/28/21 History release (Adult Aspirin Regimen) CPAP Machine #1 ea 01/01/20 08/11/21 Rx kzmlvihiehsb-hyf-motqp acid-vit 1 tab PO DAILY tab 12/01/20 08/28/21 History K-lycop 400 mcg-20 mcg-370 mcg tablet (Men's 50 Plus Multivitamin) calcium carbonate 500 mg-vitamin 1 tab PO QAM 01/18/21 08/28/21 History D3 3.125 mcg (125 unit) tablet venlafaxine 37.5 mg tablet 37.5 mg PO BID #180 tab 06/07/21 08/28/21 Rx carvedilol 12.5 mg tablet 12.5 mg PO BID #180 tab 07/12/21 08/28/21 Rx warfarin 2 mg tablet 2 mg PO QPM 07/14/21 08/28/21 History acetaminophen 500 mg tablet 1,000 mg PO Q6H PRN 08/28/21 08/28/21 History (Tylenol Extra Strength) alprazolam 0.5 mg tablet (Xanax) 0.5 mg PO BID 08/28/21 08/28/21 History lansoprazole 15 mg capsule,delayed 15 mg PO DAILY 08/28/21 08/28/21 History release Past Med/Surg History Medical History Anxiety Arthritis of knee, left Arthritis of knee, right Chronic kidney disease, stage 3 (moderate) pt denies Chronic venous insufficiency DVT (deep venous thrombosis) Per patient, ~1997. 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 five total of 5 blood clots in hx, most recent 7 yr ago Essential hypertension GERD (gastroesophageal reflux disease) Gum disease History of cellulitis History of colon cancer 1992; sx intervention ; hx chemo History of pulmonary embolus (PE) [place] (hard of hearing) Interstitial lung disease pt denies Obstructive sleep apnea syndrome cpap On anticoagulant therapy Prediabetes pt denies Restless legs syndrome pt denies Thoracic aortic aneurysm pt denies Surgical History History of colonoscopy History of endoscopy REMOTE History of eyelid surgery History of tonsillectomy S/P partial colectomy (1992) hx ; removed some of liver, lymph nodes and appendix with this surgery Family History Unknown Hypertension Father Lung disease Cancer Mother Coronary heart disease Myocardial infarction Family history of diabetes mellitus Son BRITTNEY (obstructive sleep apnea) Brother Family history of diabetes mellitus Sister Family history of diabetes mellitus Denies family history of Ovarian cancer Prostate cancer Breast cancer Colorectal cancer Social History Smoking Status: Former smoker Tobacco Type: Cigarettes Age Started Using Tobacco: 12; packs per day: 2; Second Hand Exposure: No; Hx Alcohol Use: No Hx Substance Use: No Preferred Language: Armenian Communication Ability: Effective Visual Impairment: Severely Limited Hearing Ability: Normal 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 Beliefs That Will Affect Care: None marital status: Current Living Situation: Spouse Current Living Situation Comment: 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 occupational status: retired How many Children do You have: 1 How many Children do You have Comment: children are local and able to assist as needed Feels Safe at Home: Yes Safety Concerns: Feels Safe At This Time Diet Comment: has meals on wheels during the past year weight has: remained stable Dental Care, Regularly: No Physical Activity Frequency: 1-2 Times per Week Seatbelt Use: always Sunscreen Use: Yes Assistive Devices: Cane, CPAP, Hearing Aid - Bilateral and Walker Review of Systems Review of Systems: Mild distress and fatigue no headache, no visual changes no speech or swallowing issues no chest pain, pressure or palpitations no shortness of breath, cough or wheezes no abdominal pain, nausea or vomiting, diarrhea or constipation no dysuria, hematuria or frequency significant b/l joint pain and swelling no back pain, CVA tenderness or radicular pain chronic LE venous stasis changes, old defect in right lower leg from previous infection no focal signs of weakness or numbness or altered sensation no complaints of anxiety or depression.. Physical Exam Physical Exam: The patient appeared well nourished and moderate distress Vital signs as documented. Head exam is normocephalic atraumatic Neck is without JVD, thyromegaly, or carotid bruits. Lungs are clear to auscultation, no focal loss of breath sounds Cardiac exam, Rhythm is regular.. No murmurs, rubs or gallops. Abdominal exam reveals normal bowel sounds, soft non tender, no masses Extremities are chronically edematous, pulses are intact chronic venous stasis changes Neurologic exam is alert and oriented, no focal loss of strength or sensation Skin is with LE changes more left that right Psychologically is without concerns for anxiety or depression.. Results & Data Results & Data ([facility]) Vital Signs (Past 12 Hours) Vital Signs Temp Pulse Pulse Resp BP BP Pulse Ox 08/28/21 15:46 83 18 172/114 H 96 08/28/21 15:35 83 18 95 08/28/21 15:02 98.2 F 84 18 154/102 H 95 Diagnostic Findings Chest X-Ray 08/28/21 15:29 XR chest 1V portable CLINICAL HISTORY: Atypical chest pain. COMPARISON STUDY: Chest radiograph August 08, 2021. Chest CT May 26, 2021. FINDINGS: Small left pleural effusion has decreased in size since prior exam. There is persistent left basilar opacity. No pneumothorax is present. Skin folds project over the left chest. Cardiac size is normal. No evidence for pulmonary edema. IMPRESSION: Small left pleural effusion, decreased in size since prior exam. Persistent left basilar opacity which could reflect atelectasis or consolidation. Radiographic follow-up to ensure resolution is recommended. ACT 112: Negative or not required by law. Electronically signed by: Carlos Seaman M.D. 08/28/2021 4:15 PM Knee X-Ray 08/28/21 15:29 XR knee LT 3V CLINICAL HISTORY: pain, unable to walk COMPARISON: Knee radiographs February 26, 2019. FINDINGS: No acute fracture is noted. There is marked medial compartment joint space narrowing. Moderate osteoarthritis within the patellofemoral compartment is present. Moderate size joint effusion is noted. There is diffuse soft tissue swelling. IMPRESSION: 1. No acute fracture. 2. Severe left knee osteoarthritis, most pronounced within the medial compartment. 3. Moderate-sized left knee joint effusion. Diffuse soft tissue swelling. ACT 112: Negative or not required by law. Electronically signed by: Carlos Seaman M.D. 08/28/2021 4:18 PM Knee X-Ray 08/28/21 15:29 XR knee RT 3V CLINICAL HISTORY: pain, unable to walk COMPARISON: CT of the right lower leg December 12, 2017. Knee radiographs February 26, 2019. FINDINGS: No acute fracture is identified. A large right knee joint effusion is present. Severe medial compartment osteoarthritis is present. There is moderate patellofemoral compartment osteoarthritis. Diffuse soft tissue swelling is noted. IMPRESSION: 1. No acute fracture. 2. Severe right knee osteoarthritis, most pronounced within the medial compartment. 3. Large joint effusion and diffuse soft tissue swelling. ACT 112: Negative or not required by law. Electronically signed by: Carlos Seaman M.D. 08/28/2021 4:17 PM ECG Additional Comments: EKG shows normal sinus rhythm without acute changes PG Care Time/CCT Total # of Minutes Spent Total Time Spent with Patient: Total time spent is greater than 50% in coordination of care (as documented) at patient's floor/unit and/or counseling patient: Coding Level of Care Code 01585 Initial Inpt Care Lvl 3 Diagnoses Lymphedema I89.0 Anemia D64.9 Warfarin anticoagulation Z79.01 Chronic kidney disease, stage 3 (moderate) N18.30 Essential hypertension I10 History of pulmonary embolus (PE) Z86.711 Obstructive sleep apnea syndrome G47.33 Osteoarthritis M19.90
[2021-08-28] MEDS ORDERED: oxyCODONE HCL IR 5 MG TAB (IMMEDIATE RELEASE) PO PRN (19:30)
[2021-08-28] MEDS ORDERED: ONDANSETRON INJ 2 MG/ML 2 ML VIAL IV PRN (19:30)
[2021-08-28] MEDS ORDERED: NON-FORMULARY MEDICATION (Cpap Machine misc) SCH (19:30)
[2021-08-28] MEDS ORDERED: MoRPHine SULFATE 2 MG/ML CARP IV PRN (19:30)
[2021-08-28] MEDS ORDERED: PHYTONADIONE 2.5 MG in DEXTROSE 5% 50 ML IV ONE (20:00)
[2021-08-28] MEDS: ACETAMINOPHEN 500 MG TAB PO SCH (20:42)
[2021-08-28] MEDS: carvediloL 12.5 MG TAB PO SCH (20:43)
[2021-08-28] MEDS: DICLOFENAC SOD 1% GEL 100 GM TUBE EXT SCH (20:43)
[2021-08-28] MEDS: VENLAFAXINE HCL 37.5 MG TAB PO SCH (20:44)
[2021-08-28] MEDS: POTASSIUM CHLORIDE CRTAB 20 MEQ TABCR PO SCH (20:44)
[2021-08-28] MEDS: ALPRAZolam 0.5 MG TABLET PO SCH (20:49)
[2021-08-28] MEDS: PANTOprazole 40 MG TAB PO SCH (21:39)
--- NOTE | 2021-08-29 06:20 | Electrocardiogram Report ---
Test Reason : Blood Pressure : / mmHG Vent. Rate : 083 BPM Atrial Rate : 083 BPM P-R Int : 160 ms QRS Dur : 078 ms QT Int : 386 ms P-R-T Axes : 033 010 040 degrees QTc Int : 453 ms Sinus rhythm with Premature atrial complexes Low voltage QRS Nonspecific ST abnormality Abnormal ECG When compared with ECG of 08-AUG-2021 12:30, Premature ventricular complexes are no longer Present Premature atrial complexes are now Present Confirmed by Jurgen Eaton ([id number]) on 08/29/2021 6:20:46 AM Referred By: REFERRED SELF Confirmed By:Jurgen Eaton
--- NOTE | 2021-08-29 07:18 | Orthopedic Consultation ---
Date of Service August 29, 2021 Assessment & Plan (1) Osteoarthritis of knees, bilateral: 75-year-old gentleman is got advanced knee arthritis. I do not think anything else is going on. He is some markedly deconditioned with multiple medical comorbidities. We will aspirate both of his knees later on today and possible injected both knees for symptomatic relief. He is not a surgical candidate. Therapy would be appropriate. We will make sure he does not have any gout or pseudogout there is no signs of infection before injection. He can weight-bear as tolerated. Any orthopedic questions can be directly [phone] (2) Bilateral knee effusions: History of Present Illness Reason for Consultation: .Bilateral knee pain discomfort and ambulatory dilatory dysfunction. Requesting Physician: . Attending Physician: Liban Salazar MD . 75-year-old gentleman with multiple medical comorbidities was admitted yesterday for bilateral knee pain discomfort swelling and ambulatory dysfunction.He has a longstanding history of bilateral knee pain discomfort treated by Dr. Herrera in the past. He apparently had injections which seem to help intermittently and then do not help other times. He was actually scheduled for nerve ablation of some sort and then COVID hit and never got it. He denied to the emergency room and was admitted for ambulatory dysfunction. No other real complaints. His INRs is supratherapeutic. Allergies Allergy/AdvReac Type Severity Reaction Status Date / Time No Known Allergies Allergy Verified 08/28/21 15:39 Home Medications Medication Instructions Recorded Confirmed Type aspirin 81 mg tablet,delayed 81 mg PO DAILY tab 12/21/17 08/28/21 History release (Adult Aspirin Regimen) CPAP Machine #1 ea 01/01/20 08/11/21 Rx ieivkuisiaox-ucz-xikfu acid-vit 1 tab PO DAILY tab 12/01/20 08/28/21 History K-lycop 400 mcg-20 mcg-370 mcg tablet (Men's 50 Plus Multivitamin) calcium carbonate 500 mg-vitamin 1 tab PO QAM 01/18/21 08/28/21 History D3 3.125 mcg (125 unit) tablet venlafaxine 37.5 mg tablet 37.5 mg PO BID #180 tab 06/07/21 08/28/21 Rx carvedilol 12.5 mg tablet 12.5 mg PO BID #180 tab 07/12/21 08/28/21 Rx warfarin 2 mg tablet 2 mg PO QPM 03/24/22 05/08/22 History acetaminophen 500 mg tablet 1,000 mg PO Q6H PRN 08/28/21 08/28/21 History (Tylenol Extra Strength) alprazolam 0.5 mg tablet (Xanax) 0.5 mg PO BID 08/28/21 08/28/21 History lansoprazole 15 mg capsule,delayed 15 mg PO DAILY 08/28/21 08/28/21 History release Past Med/Surg History Medical History Anxiety Arthritis of knee, left Arthritis of knee, right Chronic kidney disease, stage 3 (moderate) pt denies Chronic venous insufficiency DVT (deep venous thrombosis) Per patient, ~1997. 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 five total of 5 blood clots in hx, most recent 7 yr ago Essential hypertension GERD (gastroesophageal reflux disease) Gum disease History of cellulitis History of colon cancer 1992; sx intervention ; hx chemo History of pulmonary embolus (PE) [place] ([place]) Interstitial lung disease pt denies Obstructive sleep apnea syndrome cpap On anticoagulant therapy Prediabetes pt denies Restless legs syndrome pt denies Thoracic aortic aneurysm pt denies Surgical History History of colonoscopy History of endoscopy REMOTE History of eyelid surgery History of tonsillectomy S/P partial colectomy (1992) hx ; removed some of liver, lymph nodes and appendix with this surgery Family History Unknown Hypertension Father Lung disease Cancer Mother Coronary heart disease Myocardial infarction Family history of diabetes mellitus Son BRITTNEY (obstructive sleep apnea) Brother Family history of diabetes mellitus Sister Family history of diabetes mellitus Denies family history of Ovarian cancer Prostate cancer Breast cancer Colorectal cancer Social History Smoking Status: Former smoker Tobacco Type: Cigarettes Age Started Using Tobacco: 12; packs per day: 2; Second Hand Exposure: No; Hx Alcohol Use: No Hx Substance Use: No Preferred Language: Vietnamese Communication Ability: Effective Visual Impairment: Severely Limited Hearing Ability: Normal Direct Sales Professional Required: No Beliefs That Will Affect Care: None marital status: Current Living Situation: Spouse Current Living Situation Comment: 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 Physical Exam .Physical examination reveals an elderly male lying in bed with a CPAP machine on. Examination of both lower extremities reveals diffuse edema distally with chronic venous stasis changes. He is got a moderate sized knee joint effusion as the right side a bit bigger than the left. No redness or warmth. He has difficulty doing a straight leg raise. He looks markedly deconditioned. No particular pain with hip motion. Results & Data Results & Data Laboratory Results . Diagnostic Findings . X-rays of both knees reveal advanced knee DJD. The left side bit worse than the right. Got complete loss of medial joint space on the left side. Moderate- sized joint effusions.No signs of joint destruction. PG Care Time/CCT Total # of Minutes Spent Total Time Spent with Patient: Total time spent is greater than 50% in coordination of care (as documented) at patient's floor/unit and/or counseling patient: Coding Level of Care Code 81870 Inpt Consult Level 4 Diagnoses Osteoarthritis of knees, bilateral M17.0 Osteoarthritis type: unspecified Bilateral knee effusions M25.461; M25.462 (1) Osteoarthritis of knees, bilateral Osteoarthritis type: unspecified Qualified Code(s): M17.0 - Bilateral primary osteoarthritis of knee
[2021-08-29 07:27] LABS: Prothrombin Time 20.3 Seconds (9.0-12.0)
[2021-08-29 07:34] LABS: Hematocrit (blood only) 33.7 % (42-52); Hemoglobin 10.8 g/dL (14.0-18.0); Mean Corpuscular Hemoglobin 26.1 pg (25-34); Mean Corpuscular Volume 81.4 fL (80-100); Mean Platelet Volume 9.6 fL (7.4-10.4); Platelet Count 262 K/uL (130-400); RDW Coefficient of Variation 14.7 % (11.5-14.5); RDW Standard Deviation 43.7 fL (36.4-46.3); Red Blood Count 4.14 M/uL (4.7-6.1); White Blood Count 6.99 K/uL (4.8-10.8)
[2021-08-29 07:39] LABS: BUN Creatinine Ratio 16.5 (10-20); Calcium 8.7 mg/dl (8.5-10.1); Creatinine Clr Calc Pharmacy 98.6 ml/min; Est GFR (African American) 101.8 ml/min; Est GFR (Non-African American) 87.8 ml/min; Potassium 3.5 mmol/L (3.5-5.1); Uric Acid 4.4 mg/dl (2.6-7.2)
[2021-08-29] MEDS: VENLAFAXINE HCL 37.5 MG TAB PO SCH ×2 (08:21→21:37)
[2021-08-29] MEDS: POLYETHYLENE (MIRALAX) 17 GM PACK PO SCH (08:21)
[2021-08-29] MEDS: carvediloL 12.5 MG TAB PO SCH ×2 (08:21→21:36)
[2021-08-29] MEDS: ACETAMINOPHEN 500 MG TAB PO SCH ×3 (08:21→21:36)
[2021-08-29] MEDS: POTASSIUM CHLORIDE CRTAB 20 MEQ TABCR PO SCH ×2 (08:21→21:37)
[2021-08-29] MEDS: CALCIUM 600MG + VIT D 400 IU TAB PO SCH (08:21)
[2021-08-29] MEDS: PANTOprazole 40 MG TAB PO SCH ×2 (08:21→21:37)
[2021-08-29] MEDS: DICLOFENAC SOD 1% GEL 100 GM TUBE EXT SCH ×2 (08:22→21:36)
[2021-08-29] MEDS: ALPRAZolam 0.5 MG TABLET PO SCH ×2 (08:29→21:39)
--- NOTE | 2021-08-29 12:31 | Hospitalist Progress Note ---
Date of Service August 29, 2021 Assessment & Plan (1) Osteoarthritis: Plan: Patient presents with significant knee pain preventing ambulation. Bilateral joint effusions are seen on plain films. Patient has a negative Lyme testing in 2020. Uric acid testing is pending orthopedic consultation for aspiration of joint to evaluate for crystal analysis or infection although clinically that does not appear to be signs of infection. elevated INR , with Vit[place] K did reduce to 2.0, continue to hold coumadin at this time, Certainly multimodal pain control will be used including scheduled Tylenol topical nonsteroidals and as needed opiates for pain control. PT OT evaluation once orthopedics of completes evaluation for possibility of arthrocentesis (2) Lymphedema: Plan: Patient with chronic lower extremity lymphedema likely secondary to cor pulmonale which is influenced by sleep apnea and history of pulmonary embolism in the past the patient has had infections low salt diet, elevated legs when able (3) Anemia: Plan: Patient has had intermittent anemia over time his INR is elevated and his hemoglobin is slightly down from his previous hemoglobin of 13 it is now 11. He has microcytic and iron is low but so is binding capacity, will start oral iron, continue ppi (4) Warfarin anticoagulation: Plan: Warfarin anticoagulation due to history of pulmonary embolism and chornic DVT in RLE. He is supratherapeutic is given 2.5 mg of vitamin K 08/28/21 (5) Essential hypertension: Plan: Patient's blood pressure is elevated on presentation he will be maintained on carvedilol with as needed medications and dose increase as needed (6) Chronic kidney disease, stage 3 (moderate): Plan: Patient with a history of chronic kidney disease not on any nonsteroidals parenterally this will abuse topically will avoid nephrotoxic drugs and follow his renal function (7) History of pulmonary embolus (PE): Plan: Chronic anticoagulation, patient also has chronic changes in his lungs with fibrotic changes in the lower lobes bilaterally and also a fusiform thoracic ao rtic aneurysm is seen. 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 seen on Doppler in 2020 (8) Obstructive sleep apnea syndrome: Plan: pt uses CPAP at home did not bring in machine will use ours Admission and Anticipated Discharge Date Admission Date: August 28, 2021 Subjective pt is not feeling much better will have ortho eval for arthrocentesis today Review of Systems Review of Systems: Mild distress and fatigue no headache, no visual changes no speech or swallowing issues no chest pain, pressure or palpitations no shortness of breath, cough or wheezes no abdominal pain, nausea or vomiting, diarrhea or constipation no dysuria, hematuria or frequency significant b/l joint pain and swelling no back pain, CVA tenderness or radicular pain chronic LE venous stasis changes, old defect in right lower leg from previous infection no focal signs of weakness or numbness or altered sensation no complaints of anxiety or depression.. Physical Exam Physical Exam: The patient appeared well nourished and moderate distress Vital signs as documented. Head exam is normocephalic atraumatic Neck is without JVD, thyromegaly, or carotid bruits. Lungs are clear to auscultation, no focal loss of breath sounds Cardiac exam, Rhythm is regular.. No murmurs, rubs or gallops. Abdominal exam reveals normal bowel sounds, soft non tender, no masses Extremities are chronically edematous, pulses are intact chronic venous stasis changes Neurologic exam is alert and oriented, no focal loss of strength or sensation Skin is with LE changes more left that right Psychologically is without concerns for anxiety or depression.. Results & Data Results & Data ([facility]) Vital Signs (Past 12 Hours) Vital Signs Temp Pulse Pulse Resp BP Pulse Ox 08/29/21 11:27 80 08/29/21 11:16 97.7 F 78 18 100/63 98 08/29/21 07:18 97.7 F 81 18 151/89 H 97 08/29/21 04:14 60 16 93 08/29/21 04:02 97.5 F L 78 18 146/91 H 96 PG Care Time/CCT Total # of Minutes Spent Total Time Spent with Patient: Total time spent is greater than 50% in coordination of care (as documented) at patient's floor/unit and/or counseling patient: Coding Level of Care Code 19463 Subseq Hosp Care Lvl 2 Diagnoses Osteoarthritis M19.90 Lymphedema I89.0 Anemia D64.9 Warfarin anticoagulation Z79.01 Essential hypertension I10 Chronic kidney disease, stage 3 (moderate) N18.30 History of pulmonary embolus (PE) Z86.711 Obstructive sleep apnea syndrome G47.33
[2021-08-29] MEDS: FERROUS SULFATE 325 MG TAB PO SCH (13:49)
--- NOTE | 2021-08-29 15:36 | Progress Notes ---
DATE OF NOTE: 08/29/2021 SUBJECTIVE: Bilateral knee pain and discomfort and decreased ambulatory ability. Patient is a 75-year-old gentleman admitted for bilateral knee pain and gait dysfunction. We are ask ed to see him for possible treatment for his knee arthritis. He has been a long-term patient of ours and had knee arthritis, treated with injections. He is really not a surgical candidate due to perip heral vascular disease, obesity and deconditioning, along with multiple medical issues. He was admit carmen for ambulatory dysfunction. X-ray showed arthritis. His sed rate and C-reactive protein are bot h elevated. We are going to aspirate his knees to make sure there is no infection, see if there are any signs of gout or pseudogout and to see whether there is any opportunity for injection treatment, which may help him. PROCEDURE: The patient's right knee was prepped with alcohol. I aspirated the right knee for about 60 mL of very minimally inflammatory fluid. We sent this off for analysis. A sterile bandage was ap plied. The left knee was prepped with alcohol. I aspirated the left knee for about 30 mL of similarly mildl y inflammatory fluid. It did not look infectious or majorly inflammatory. This was also sent off fo r stat Gram stain, aerobic and anaerobic culture as well as cell count with differential and crystal analysis. Both of joint fluid specimens were sent off. We will see what these show and if they show no signs of infection, we will consider injecting his knees tomorrow. The patient tolerated the pro cedure well and there were no complications. Job ID: [id number]
[2021-08-29 16:57] LABS: Appearance Synovial Fluid CLOUDY; Color Synovial Fluid AMBER; RBC Synovial Fluid (A) 7000 /uL; Source Synovial Fluid KNEE; WBC Synovial Fluid (A) 7515 /ul (0-200)
[2021-08-29 16:58] LABS: Mononuclear WBC Synovial 25.9 %; Polynuclear WBC Synovial 74.1 %
[2021-08-30 07:07] LABS: Hematocrit (blood only) 29.6 % (42-52); Hemoglobin 9.4 g/dL (14.0-18.0); Mean Corpuscular Hgb Conc 31.8 g/dL (32-36); Mean Corpuscular Volume 81.8 fL (80-100); Mean Platelet Volume 9.6 fL (7.4-10.4); Platelet Count 265 K/uL (130-400); RDW Coefficient of Variation 14.9 % (11.5-14.5); RDW Standard Deviation 44.7 fL (36.4-46.3); Red Blood Count 3.62 M/uL (4.7-6.1); White Blood Count 7.27 K/uL (4.8-10.8)
[2021-08-30 07:23] LABS: INR 1.8 (0.9-1.1); Prothrombin Time 18.1 Seconds (9.0-12.0)
[2021-08-30] MEDS: ACETAMINOPHEN 500 MG TAB PO SCH ×3 (07:52→20:18)
[2021-08-30] MEDS: POLYETHYLENE (MIRALAX) 17 GM PACK PO SCH (07:52)
[2021-08-30 07:53] LABS: BUN Creatinine Ratio 24.5 (10-20); Calcium 8.5 mg/dl (8.5-10.1); Creatinine Clr Calc Pharmacy 83.2 ml/min; Est GFR (African American) 91.6 ml/min; Potassium 3.8 mmol/L (3.5-5.1)
[2021-08-30] MEDS: ALPRAZolam 0.5 MG TABLET PO SCH ×2 (07:53→20:17)
[2021-08-30] MEDS: VENLAFAXINE HCL 37.5 MG TAB PO SCH ×2 (07:53→20:21)
[2021-08-30] MEDS: PANTOprazole 40 MG TAB PO SCH ×2 (07:53→20:20)
[2021-08-30] MEDS: carvediloL 12.5 MG TAB PO SCH ×2 (07:53→20:22)
[2021-08-30] MEDS: CALCIUM 600MG + VIT D 400 IU TAB PO SCH (07:53)
[2021-08-30] MEDS: DICLOFENAC SOD 1% GEL 100 GM TUBE EXT SCH ×2 (07:54→20:16)
[2021-08-30 10:07] LABS: Appearance Synovial Fluid CLOUDY; Color Synovial Fluid YELLOW; Mononuclear WBC Synovial 19.1 %; Polynuclear WBC Synovial 80.9 %; RBC Synovial Fluid (A) 4000 /uL; Source Synovial Fluid KNEE; WBC Synovial Fluid (A) 3317 /ul (0-200)
[2021-08-30 10:51] LABS: Folate (Folic Acid) 8.44 ng/ml (>5.38)
[2021-08-30] MEDS: CYANOCOBALAMIN (B-12) 500 MCG TABLET PO SCH (13:11)
[2021-08-30] MEDS ORDERED: BETAMETH SOD PHOS/ACETATE IA 6 MG/ML IA ONE (16:00)
[2021-08-30] MEDS ORDERED: BUPIVACAINE 0.5 % 5 MG/1 ML MPF 30ML VIAL IA ONE (16:00)
[2021-08-30] MEDS: WARFARIN SOD 2 MG TAB PO SCH (17:28)
--- NOTE | 2021-08-30 19:05 | Progress Notes ---
DATE OF SERVICE: 08/30/2021 SUBJECTIVE: A 75-year-old gentleman admitted with bilateral knee pain and ambulatory dysfunction. W e aspirated his knees yesterday. He says they feel about the same. No interval change. He has diff iculty lifting his legs. Denies any other pains. OBJECTIVE: VITAL SIGNS: Temperature 36.8. Vital signs are stable. PHYSICAL EXAMINATION: GENERAL: Shows an obese, elderly male. He looks severely deconditioned, lying in bed. EXTREMITIES: Examination of both legs revealed bilateral lower extremity stasis changes and edema. He has got some small to moderate-sized knee effusions in both knees. He can do a straight leg raise on either side. Fairly mild pain with passive motion. LABORATORY DATA: His white count is normal. His sed rate is markedly elevated at 66. C-reactive pr otein is also elevated at 13.18. Knee aspirate results: We aspirated his knees yesterday. One knee shows 3000 white cells with 80% p olys. The other knee results are pending. Cultures are no growth. Gram stains of both showed many polys, no organisms. ASSESSMENT: A 75-year-old gentleman with bilateral knee pain and discomfort and ambulatory dysfuncti on, markedly deconditioned. He has got arthritis in both knees, but not function limiting. His aspi rations are consistent with knee arthritis. No signs of gout, pseudogout, or infection. PLAN: We talked about treatment. He is really not a surgical candidate. We will inject both of his knees today and see if we can give him some symptomatic pain relief. I would recommend a fairly sig nificant physical therapy and conditioning to try and get him back into some functional shape. We wi ll provide the injections today. For any further orthopedic care, just contact us. He should follow up in our clinic in about 3 months. PROCEDURE: The patient's right knee was prepped with alcohol. ____ injected in the right knee in st erile fashion. The patient tolerated the procedure well. No complication. Left knee was prepped with alcohol. ____ injected in the left knee in sterile fashion. The patient tolerated the procedure well and there were no complications. Job ID: [id number]
--- NOTE | 2021-08-30 20:13 | Hospitalist Progress Note ---
Date of Service August 30, 2021 Assessment & Plan (1) Weakness: Plan: initially thought to be due to ambulatory dysfunction in the setting of severe, b/l knee osteoarthritis. s/p arthrocentesis of both knees - cell counts c/w mild inflammation from OA but no crystal evidence of gout or pseudogout, and no evidence of septic knees. s/p steroid injections to both knees today. however, upon closer inspection and per his history, he has had significant weakness of b/l hip regions and the right arm for several weeks. he has some UMN signs on neuro exam (brisk reflexes, etc). etiology uncertain. plan to start with MRI brain and MRI c-spine with & without contrast. B12 level low-normal but technically still in sufficient range. recent TSH wnl. will obtain neurology consultation for their opinion. sed rate/crp both high - etiology uncertain - if full work-up is negative - PMR? other? check CPK. check [place] as well. (2) Osteoarthritis: Plan: severe b/l knee OA. s/p arthrocentesis of both knees with copious amounts of joint fluid removed. cell counts benign/no evidence of septic joint. s/p steroid injections both knees today. I cannot exclude RA. Cannot exclude "inflammatory OA." Consider RF - especially in light of right hand findings. Consider right hand films. (3) Lymphedema: Plan: stable at this time (4) Anemia: Plan: Ferritin wnl, but may be falsely elevated given his high sed rate/crp. B12 and folate levels noted - start PO B12 supplementation. repeat cbc am. consider transferrin sat. 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 s/p vitamin K -- 08/28/21 -- due to INR of 5.9. INR now 1.8 - resume coumadin this evening. INR am. (6) Essential hypertension: Plan: Cont home meds (7) History of pulmonary embolus (PE): Plan: noted on chronic coumadin (8) Obstructive sleep apnea syndrome: Plan: CPAP Admission and Anticipated Discharge Date Admission Date: August 28, 2021 Subjective tele overnight wnl during the visit the patient relates a 2-3 week history of severe ambulatory dysfunction states the symptoms began several days prior to Easter started with his left knee "popping" then progressed to his right knee/leg he went from being able to walk to requiring the use of wheelchair or walker at home he reports AM stiffness, diffuse myalgias, and difficulty standing also reports b/l arm weakness, much worse on the right he mentions trauma to his right ankle "about 30 years ago" after falling into a large hole in a street [place] his home? denies headaches denies neck pain or trauma denies paresthesias denies low back pain Review of Systems Review of Systems: gen - no fevers, good appetite cv - no cp pulm - no dyspnea musculo - swollen joints right hand "for a few weeks"; b/l knee swelling skin - no rash Physical Exam Physical Exam: gen - NAD, talkative neck - supple, no JVD mouth - MMM heart - RRR, s1 s2 lungs - CTA b/l abd - soft NT ND BS+ ext - <1+ edema b/l, pulses 2+ b/l skin - stasis changes w/ hyperpigmentation of b/l shins musculo - b/l knees with multiple band-aids in place from recent arthrocentesis & steroid injections; mild effusions b/l; right hand gross swelling with multiple small joint synovitis; atrophy of periarticular shoulder muscles on right neuro - strength 4/5 right shoulder, 5/5 left shoulder; severe hip flexion weakness, 3/5 at best b/l; distal strength b/l feet 5/5 3+ patellar reflexes; +babinski's b/l Results & Data Results & Data ([facility]) Vital Signs (Past 12 Hours) Vital Signs Temp Pulse Pulse Resp BP BP Pulse Ox 08/30/21 19:52 36.7 C 84 18 116/72 95 08/30/21 17:03 36.8 C 74 16 116/75 92 08/30/21 15:15 75 08/30/21 11:57 102/62 08/30/21 11:50 36.5 C 80 16 90/60 L 93 Laboratory Results Laboratory Results - last 24 hr 08/29/21 08/29/21 08/30/21 15:00 15:00 05:59 WBC 7.27 RBC 3.62 L Hgb 9.4 L Hct 29.6 L MCV 81.8 MCH 26.0 MCHC 31.8 L RDW Std Deviation 44.7 RDW Coeff of Scooter 14.9 H Plt Count 265 MPV 9.6 PT INR Sodium Potassium Chloride Carbon Dioxide Anion Gap BUN Creatinine Est Cr Clr Drug Dosing Est GFR ( Amer) Est GFR (Non-Af Amer) BUN/Creatinine Ratio Glucose Calcium Ferritin Vitamin B12 Folate Fluid Comment Synovial Source KNEE Synovial Color YELLOW Synovial Appearance CLOUDY Synovial WBC 3317 H Synovial RBC 4000 Synovial Polynuclear % 80.9 Synovial Mononuclear % 19.1 Synovial Crystals 08/30/21 08/30/21 08/30/21 05:59 05:59 09:47 WBC RBC Hgb Hct MCV MCH MCHC RDW Std Deviation RDW Coeff of Scooter Plt Count MPV PT 18.1 H INR 1.8 H Sodium 138 Potassium 3.8 Chloride 103 Carbon Dioxide 31 Anion Gap 4 BUN 23 Creatinine 0.94 Est Cr Clr Drug Dosing 83.2 Est GFR ( Amer) 91.6 Est GFR (Non-Af Amer) 79.0 BUN/Creatinine Ratio 24.5 H Glucose 103 H Calcium 8.5 Ferritin 181.3 Vitamin B12 Folate Fluid Comment Synovial Source Synovial Color Synovial Appearance Synovial WBC Synovial RBC Synovial Polynuclear % Synovial Mononuclear % Synovial Crystals 08/30/21 09:47 WBC RBC Hgb Hct MCV MCH MCHC RDW Std Deviation RDW Coeff of Scooter Plt Count MPV PT INR Sodium Potassium Chloride Carbon Dioxide Anion Gap BUN Creatinine Est Cr Clr Drug Dosing Est GFR ( Amer) Est GFR (Non-Af Amer) BUN/Creatinine Ratio Glucose Calcium Ferritin Vitamin B12 270 Folate 8.44 Fluid Comment Synovial Source Synovial Color Synovial Appearance Synovial WBC Synovial RBC Synovial Polynuclear % Synovial Mononuclear % Synovial Crystals PG Care Time/CCT Total # of Minutes Spent Total Time Spent with Patient: Total time spent is greater than 50% in coordination of care (as documented) at patient's floor/unit and/or counseling patient: Coding Level of Care Code 95156 Subseq Hosp Care Lvl 3 Diagnoses Osteoarthritis M19.90 Lymphedema I89.0 Anemia D64.9 Warfarin anticoagulation Z79.01 Essential hypertension I10 History of pulmonary embolus (PE) Z86.711 Obstructive sleep apnea syndrome G47.33 Weakness R53.1
[2021-08-30] MEDS ORDERED: GADOBUTROL 65ML VIAL IV ONE (23:26)
[2021-08-31 06:38] LABS: Hematocrit (blood only) 30.1 % (42-52); Hemoglobin 9.4 g/dL (14.0-18.0); Mean Corpuscular Hemoglobin 25.5 pg (25-34); Mean Corpuscular Hgb Conc 31.2 g/dL (32-36); Mean Corpuscular Volume 81.6 fL (80-100); Mean Platelet Volume 9.7 fL (7.4-10.4); Platelet Count 251 K/uL (130-400); RDW Coefficient of Variation 14.8 % (11.5-14.5); RDW Standard Deviation 44.1 fL (36.4-46.3); Red Blood Count 3.69 M/uL (4.7-6.1); White Blood Count 3.88 K/uL (4.8-10.8)
[2021-08-31 06:57] LABS: C Reactive Protein 16.04 mg/dl (0-0.5)
[2021-08-31 06:58] LABS: BUN Creatinine Ratio 28.6 (10-20); Calcium 8.5 mg/dl (8.5-10.1); Creatinine Clr Calc Pharmacy 110.3 ml/min; Est GFR (Non-African American) 92.3 ml/min; Potassium 4.2 mmol/L (3.5-5.1)
[2021-08-31 07:08] LABS: INR 2.6 (0.9-1.1); Prothrombin Time 26.7 Seconds (9.0-12.0)
[2021-08-31] MEDS: carvediloL 12.5 MG TAB PO SCH ×2 (07:35→21:50)
[2021-08-31] MEDS: ALPRAZolam 0.5 MG TABLET PO SCH ×2 (07:35→21:47)
[2021-08-31] MEDS: POLYETHYLENE (MIRALAX) 17 GM PACK PO SCH (07:35)
[2021-08-31] MEDS: VENLAFAXINE HCL 37.5 MG TAB PO SCH ×2 (07:36→21:48)
[2021-08-31] MEDS: FERROUS SULFATE 325 MG TAB PO SCH (07:36)
[2021-08-31] MEDS: CALCIUM 600MG + VIT D 400 IU TAB PO SCH (07:36)
[2021-08-31] MEDS: CYANOCOBALAMIN (B-12) 500 MCG TABLET PO SCH (07:36)
[2021-08-31] MEDS: ACETAMINOPHEN 500 MG TAB PO SCH ×3 (07:36→21:50)
[2021-08-31] MEDS: PANTOprazole 40 MG TAB PO SCH ×2 (07:36→21:48)
[2021-08-31] MEDS: DICLOFENAC SOD 1% GEL 100 GM TUBE EXT SCH ×2 (07:37→21:51)
[2021-08-31 07:44] LABS: Iron 25 mcg/dl (35-175); Total Iron Binding Cap Calc 132 mcg/dl (250-450); Transferrin (FE) Percent Satur 19 % (20-50); Unsaturated Iron Binding Cap 107 mcg/dl (155-355)
[2021-08-31 07:52] LABS: Lyme Ab IgG w/WB Rflx Negative (Negative); Lyme Ab IgM w/WB Rflx Negative (Negative)
--- NOTE | 2021-08-31 08:16 | XRay Report ---
XR hand RT min 3V routine CLINICAL HISTORY: synovitis multiple joints; eval erosions TECHNIQUE: 3 views of the right hand were obtained. Comparison: Comparison is made to wrist radiograph 08/08/2021 FINDINGS: There is no evidence of an acute fracture. Degenerative changes are seen. These are prominent in the radial carpal row. An old healed fracture/degeneration of the distal ulna and ulnar styloid are seen. Erosions are seen at multiple sites, most prominently in the distal aspect of the proximal phalanges and at the first metacarpophalangeal joint. No soft tissue abnormality is seen. IMPRESSION: Multiple erosions and degenerative changes compatible with erosive arthritis such as rheumatoid arthr itis or erosive osteoarthritis. ACT 112: Negative or not required by law. Electronically signed by: Yan Gao M.D. 08/31/2021 8:14 AM
--- NOTE | 2021-08-31 08:30 | Magnetic Resonance Report ---
MR brain wo/w con CLINICAL HISTORY: RUE weakness; eval CVA, other pathology TECHNIQUE: Multiplanar and multisequence MR images of the brain were obtained prior to and following administration of gadolinium contrast. Comparison: Comparison is made to MRI brain September 02, 2017 FINDINGS: No abnormal restricted diffusion is identified. The white matter is unremarkable. The ventricular sys tem is normal in appearance. There are no masses, mass effect, or midline shift. No abnormal enhancem ent is seen. There is no evidence of acute intraparenchymal hemorrhage. No extra axial fluid collecti ons are seen. The corpus callosum, pituitary gland, and cerebellar tonsils appear grossly unremarkabl e. Flow voids of the major intracranial arterial vessels are identified. The imaged portions of the para nasal sinuses, mastoid air cells, and orbits are unremarkable. IMPRESSION: No acute abnormalities. ACT 112: Negative or not required by law. Electronically signed by: Yan Gao M.D. 08/31/2021 8:29 AM
--- NOTE | 2021-08-31 09:09 | Magnetic Resonance Report ---
CERVICAL SPINE MRI WITH AND WITHOUT CONTRAST HISTORY: Right upper extremity, LLE/RLE weakness; eval c-spine cord lesion TECHNIQUE: Multiplanar multisequence MRI of the cervical spine was performed both before and after th e use of intravenous contrast. COMPARISON STUDY: None. FINDINGS: Significant motion artifact throughout the cervical spine resulting in difficult evaluation . No definite fracture or subluxation within the cervical spine. The visualized posterior fossa appea rs unremarkable. The cervical spinal cord appears to demonstrate normal signal intensity. No abnormal enhancement within the cervical spine. No evidence for a spinal cord lesion. There is ouqw-ci-teeogk te disc space narrowing at C4-C5. There is mild disc space narrowing at C3-C4 and C5-C6. Prevertebral soft tissues and the C1-C2 interval are intact. Mild endplate signal abnormality at C5-C6 and C7-T1 likely due to the long-standing degenerative change. [id number]-[id number] facet degenerative changes thro ughout the cervical spine. C2-C3: No significant central canal or neural foraminal narrowing. C3-C4: Broad-based posterior disc osteophyte complex asymmetric to the right resulting in mild centra l canal narrowing and severe right and moderate left neural foraminal narrowing. C4-C5: Broad-based posterior disc bulge asymmetric to the right resulting in mild central canal narro wing. There is moderate right and mild left neural foraminal narrowing. The AP diameter of the centra l canal is approximately 8 mm. There is mild anterior cord deformity. C5-C6: Broad-based posterior disc bulge resulting in mild central canal and mild bilateral neural for aminal narrowing. There is mild anterior cord deformity. C6-C7: Small left paracentral focal disc protrusion measuring 4 mm resulting in mild left-sided centr al canal narrowing. No significant neural foraminal narrowing. C7-T1: No significant central canal or neural foraminal narrowing. IMPRESSION: 1. Suboptimal evaluation of the cervical spine due to the significant motion artifact. No definite sp inal cord lesions identified. 2. Vutx-fz-trpjnild degenerative changes as described above most pronounced at the C4-C5 and C5-C6 le vels. 3. No fracture or subluxation. ACT 112: Negative or not required by law. Electronically signed by: Jules Hilario M.D. 08/31/2021 9:06 AM
--- NOTE | 2021-08-31 10:12 | Neurology Consultation ---
Date of Consultation August 31, 2021 Assessment & Plan (1) Weakness: (2) Arthralgia of multiple joints: (3) Osteoarthritis of knees, bilateral: (4) Cervical spinal stenosis: (5) Anemia: the patient has some progressive weakness and an interesting pattern. It is not purely proximal, such as would be typical in a myopathy, and the right side seems to be worse than the left side in both the arms and legs. There is no actual upper motor neuron signs on examination. There is some mild to moderate cervical spinal stenosis at multiple levels due to disc in bald but I do not believe there is any actual cord compromise that would lead to myelopathy. The patient has a markedly elevated CRP and sed rate with normal CK. overall I do not believe there is a inflammatory myopathy present , such as dermatomyositis or polymyositis. Inclusion body myositis is a possibility. although he has asymmetrical weakness, he does not have the typical finger weakness, dysphagia. CK sometimes is not elevated in inclusion body myositis. Although the elevated sed rate and CRP are consistent with polymyalgia rheumatica they tend not to get actual weakness of the muscles. Weakness from another inflammatory disease such as rheumatoid arthritis (or other) is quite possible. The patient has iron deficiency anemia Recommendations: 1. if the rheumatoid factor is negative /inconclusive, consider an KARISSA 12 Profile. 2. consider rheumatology consult. 3. As an outpatient, I would perform EMG and nerve conduction studies on 3 or 4 limbs (cannot do this study in the hospital). 4. consider course of steroids 5. Could consider muscle biopsy 6. Consider MRI of the lumbar spine overall, I spent a total of 90 minutes with this patient including review of records, review of MRI films, direct evaluation the patient bedside, and discussing the case with the patient at bedside and Dr. Salvador including differential diagnosis and treatment options. History of Present Illness Reason for Consultation: Patient is a 75 year old, who I was asked to see at the request of Dr. Salvador, for neurologic consultation regarding weakness. Requesting Physician: Dr. Salvador Attending Physician: Nelson Salvador History of Present Illness patient has a history of cellulitis and lymphedema in the lower extremities as well as osteoarthritis in the knees and other places. He has been on chronic warfarin for history of pulmonary embolus. He has obstructive sleep apnea, restless leg syndrome, chronic kidney disease, hypertension, and gastroesophageal reflux disease. Patient tells me he has been weak in the legs since about 2011. he has gradually gotten worse. He has been significantly worse with his weakness in the last 3-4 weeks and has been injuring himself very easily (wrist with using a tool and shoulder from throwing a ball). His knees hurt but his legs are very weak and he was admitted several days ago because he could not walk. There was concern about some upper motor neuron signs and more diffuse weakness. The patient admits that his arms have been weak for 3 or 4 weeks as well. He has some urinary incontinence but no numbness or tingling. He feels stiff in the muscles and painful in the joints. I am not certain regarding his ability is an accurate historian regarding his timeline of symptoms. Laboratory studies on admission revealed a low white count, anemia and low iron. Chem profile was unremarkable although glucose was 155. TSH, B12, and folate were unremarkable. Lyme antibody titers were negative. CK was normal at 53, CRP markedly elevated at 16, and sed rate elevated at 58. Rheumatoid factor is pending MRI of the brain today showed [id number] generalized atrophy and white matter small vessel ischemic changes of the normal nature. There was no enhancement and no acute changes. MRI of the cervical spine revealed some mild to moderate spinal stenosis at C4-5 and C5-6 with no actual cord signal abnormality. The stenosis was due to disc and bone. Allergies Allergy/AdvReac Type Severity Reaction Status Date / Time No Known Allergies Allergy Verified 08/28/21 15:39 Home Medications Medication Instructions Recorded Confirmed Type aspirin 81 mg tablet,delayed 81 mg PO DAILY tab 12/21/17 08/28/21 History release (Adult Aspirin Regimen) CPAP Machine #1 ea 01/01/20 08/11/21 Rx azmiyakyhkja-wuz-wnhof acid-vit 1 tab PO DAILY tab 12/01/20 08/28/21 History K-lycop 400 mcg-20 mcg-370 mcg tablet (Men's 50 Plus Multivitamin) calcium carbonate 500 mg-vitamin 1 tab PO QAM 01/18/21 08/28/21 History D3 3.125 mcg (125 unit) tablet venlafaxine 37.5 mg tablet 37.5 mg PO BID #180 tab 06/07/21 08/28/21 Rx carvedilol 12.5 mg tablet 12.5 mg PO BID #180 tab 07/12/21 08/28/21 Rx warfarin 2 mg tablet 2 mg PO QPM 07/14/21 08/28/21 History acetaminophen 500 mg tablet 1,000 mg PO Q6H PRN 08/28/21 08/28/21 History (Tylenol Extra Strength) alprazolam 0.5 mg tablet (Xanax) 0.5 mg PO BID 08/28/21 08/28/21 History lansoprazole 15 mg capsule,delayed 15 mg PO DAILY 08/28/21 08/28/21 History release Patient History Medical History Anxiety Arthritis of knee, left Arthritis of knee, right Chronic venous insufficiency DVT (deep venous thrombosis) Per patient, ~1997. 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 five total of 5 blood clots in hx, most recent 7 yr ago Essential hypertension GERD (gastroesophageal reflux disease) Gum disease History of cellulitis History of colon cancer 1992; sx intervention ; hx chemo History of pulmonary embolus (PE) [place] (hard of hearing) Interstitial lung disease pt denies Obstructive sleep apnea syndrome cpap On anticoagulant therapy Prediabetes pt denies Restless legs syndrome pt denies Thoracic aortic aneurysm pt denies Surgical History History of colonoscopy History of endoscopy REMOTE History of eyelid surgery History of tonsillectomy S/P partial colectomy (1992) hx ; removed some of liver, lymph nodes and appendix with this surgery Family History Unknown Hypertension Father Lung disease Cancer Mother Coronary heart disease Myocardial infarction Family history of diabetes mellitus Son BRITTNEY (obstructive sleep apnea) Brother Family history of diabetes mellitus Sister Family history of diabetes mellitus Denies family history of Ovarian cancer Prostate cancer Breast cancer Colorectal cancer Social History Smoking Status: Former smoker Tobacco Type: Cigarettes Age Started Using Tobacco: 12; packs per day: 2; Second Hand Exposure: No; Hx Alcohol Use: No Hx Substance Use: No Preferred Language: Yi Communication Ability: Effective Visual Impairment: Severely Limited Hearing Ability: Normal Tool Filer Hand Required: No Beliefs That Will Affect Care: None marital status: Current Living Situation: Spouse Current Living Situation Comment: 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 occupational status: retired How many Children do You have: 1 How many Children do You have Comment: children are local and able to assist as needed Feels Safe at Home: Yes Diet Comment: has meals on wheels during the past year weight has: remained stable Dental Care, Regularly: No Physical Activity Frequency: 1-2 Times per Week Seatbelt Use: always Sunscreen Use: Yes Assistive Devices: Cane and Walker Review of Systems Constitutional: + fatigue and + weakness; no fever Eyes: + worsening vision; no diplopia and no eye pain Ear, Nose, Mouth, Throat: no ear pain, no tinnitus, no hearing loss, no dizziness, no snoring, no hoarseness and no dysphagia Respiratory: no cough and no dyspnea Cardiovascular: no chest pain, no palpitations and no lightheadedness Gastrointestinal: no abdominal pain, no nausea and no vomiting Musculoskeletal: + back pain and + neck pain; no radicular pain, no joint pain and no myalgia Integumentary: no rash and no lesions Neurologic: + gait abnormality, + localized weakness and + generalized w eakness; no tingling, no numbness, no tremor(s), no abnormal movements, no headache(s), no abnormal speech, no confusion and no memory loss Psychiatric: no depression, no irritability, no anxiety, no difficulty concentrating, no confusion and no hallucinations Endocrine: no fatigue and no flushing Hematologic / Lymphatic: no easy bleeding and no easy bruising Allergy / Immunological: no urticaria and no problem reported Exam (Neuro) Physical Exam: The patient is right-handed. The patient is awake, alert, and attentive. Speech is normal without any aphasia or dysarthria. The patient can name objects, repeat phrases, and has normal spontaneous speech. Mentation and thought processes are intact, with orientation to person, place and time, and normal fund of knowledge. Attention and concentration are normal. Mood and affect are normal and appropriate. General appearance and grooming are normal. Short and long-term memory are intact. Pupils are 4 mm On the right and 5 millimeters on the left, both reactive to light. Extraocular eye muscles are intact without nystagmus. Visual acuity and visual conrad seem normal grossly to confrontation. There are no deficits to sensation in the face in all 3 distributions of the fifth cranial nerve bilaterally. Corneal reflexes are positive bilaterally. Facial strength and symmetry was normal bilaterally. Hearing seems normal bilaterally. Palate moves well without asymmetry. There is normal sternocleidomastoid and trapezius (shoulder shrug) strength bilaterally. Tongue is midline with good strength bilaterally. Neck has a full range of motion without discomfort. There are no cervical bruits bilaterally. There are no cranial or ocular bruits. Heart is without murmur. There is a regular rhythm and rate. Cervical, thoracic, and lumbar spine are nontender to palpation. Gait was not tested but stance sitting up in bed is very good. With outstretched arms there is no drift. There are no resting, postural, or action tremors. There is no ataxia with finger to nose testing. There is decreased facility in the right hand. No other abnormal involuntary movements are noted. Motor strength is 5/5 diffusely in the left upper extremity, including deltoids, biceps, triceps, brachioradialis, wrist flexors and extensors, crm solution architect, and intrinsic hand muscles. The right upper extremity is 4/5 both proximally and distally. Motor strength is 4/5 on the right and 4+/ 5 on the left both proximally and distally, including hip flexors, quadriceps, hamstrings, gastrocnemius, tibialis anterior, tibialis posterior, and Peroneii muscles. Toe extensors are normal and there is good bulk in the extensor digitorum brevis muscles bilaterally. The limbs have good tone without rigidity or spasticity. There is no atrophy noted in the muscles. Muscle bulk is normal, there is no tenderness to palpation, no myotonia to percussion, and no fasciculations seen. Sensory examination reveals no sensory deficits to pinprick in the hands bilaterally but some mild decreased sensation to pinprick in a stocking distribution in the feet bilaterally. Reflexes are 2/4 in the biceps, triceps, brachioradialis, and quadriceps tendons bilaterally. Achilles tendon reflexes are 1/4 bilaterally. There is no clonus bilaterally. Toes are downgoing with plantar stimulation bilaterally. There is peripheral edema noted in the distal lower extremities Results & Data ([facility]) Vital Signs (Past 12 Hours) Vital Signs Temp Pulse Pulse Resp BP Pulse Ox 08/31/21 07:29 36.4 C L 71 20 137/80 93 08/31/21 07:14 76 08/31/21 04:06 36.5 C 79 18 125/79 95 08/31/21 03:36 75 14 96 08/31/21 00:17 80 08/30/21 23:40 63 18 96 08/30/21 22:43 36.7 C 83 18 121/80 95 PG Care Time/CCT Total # of Minutes Spent Total Time Spent with Patient: Total time spent is greater than 50% in coordination of care (as documented) at patient's floor/unit and/or counseling patient: Coding Level of Care Code 96845 Initial Inpt Care Lvl 3 Diagnoses Weakness R53.1 Arthralgia of multiple joints M25.50 Osteoarthritis of knees, bilateral M17.0 Osteoarthritis type: unspecified Cervical spinal stenosis M48.02 Anemia D64.9 Time Spent (min) 75 (1) Osteoarthritis of knees, bilateral Osteoarthritis type: unspecified Qualified Code(s): M17.0 - Bilateral primary osteoarthritis of knee
[2021-08-31] MEDS ORDERED: predniSONE 20 MG TAB PO STA (14:44)
--- NOTE | 2021-08-31 14:47 | Hospitalist Progress Note ---
Date of Service August 31, 2021 Assessment & Plan (1) Inflammatory arthropathy: Plan: Physical exam findings, elevated sed rate/crp, right hand x-rays, and rapid improvement to steroid therapy all point towards inflammatory arthropathy such as RA. Pt's sister has known RA and [facility]. His right hand x-rays does indeed show erosions which would fit with RA. Inflammatory/erosive OA is possible but less likely as the CRP/sed rate tend not to be that elevated with erosive OA. The cell counts from his knee arthrocentesis show wbcs in the 3000s is c/w inflammatory arthropathy such as RA (a little too high for OA). I believe that he had a systemic response to the copious amounts of intra- articular steroid injections he had in both knees. PMR is unlikely. Plan - * prednisone 20mg po x 1 now * then 10mg po daily starting in am tomorrow * RF send & is pending * add anti-CCP ab tomorrow am * trend crp every few days to assess response * I spoke with Dr Pérez from [facility] today who will be happy to see the patient post-d/c I appreciate Dr Hernandez's consultation from neurology. A primary nervous system d/o is unlikely especially given the negative MRI brain, no cord lesion on Cervical spine MRI, etc. CPK is wnl making myositis unlikely. He, too, feels we are likely dealing with an inflammatory arthropathy. (2) Acute metabolic encephalopathy: Plan: hospital psychosis? steroid psychosis? other? supportive care. avoid sedatives. (3) Weakness: Plan: initially thought to be due to ambulatory dysfunction in the setting of severe, b/l knee osteoarthritis. s/p arthrocentesis of both knees - cell counts c/w mild inflammation but no crystal evidence of gout or pseudogout, and no evidence of septic knees. s/p steroid injections to both knees yesterday. CPK wnl. Lyme neg. all signs point towards #1 as cause of "weakness." He has had a dramatic response to steroid therapy overnight. (4) Osteoarthritis: Plan: severe b/l knee OA. now with suspicion of RA. see above. s/p arthrocentesis of both knees with copious amounts of joint fluid removed. cell counts benign/no evidence of septic joint. s/p steroid injections both knees yestrday. I cannot exclude RA. Cannot exclude "inflammatory OA." Favor RA diagnosis. see above. (5) Lymphedema: Plan: stable/improved at this time (6) Anemia: Plan: Ferritin wnl, but may be falsely elevated given his high sed rate/crp. B12 and folate levels noted - start PO B12 supplementation for low-normal B12 level. chronic anemia could be due to suspected rheumatoid arthritis. 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 s/p vitamin K -- 08/28/21 -- due to INR of 5.9. INR 2.6 - continue usual coumadin regimen. INR am. (8) Essential hypertension: Plan: Cont home meds (9) History of pulmonary embolus (PE): Plan: noted on chronic coumadin (10) Obstructive sleep apnea syndrome: Plan: CPAP Plan: PT, OT sophie requested dispo post-discharge -- rehab Admission and Anticipated Discharge Date Admission Date: August 28, 2021 Subjective I spoke with Dr Kade De Luna, anticoagulation clinical services consultant, who follows Mr Bauer in the clinic she had made a social visit to see Mr Bauer she has known him for a long time and she reports that he was very confused during her encounter she states he is typically very sharp, and today he was rambling from topic to topic and just not himself during my encounter he was similar to yesterday - shifting from topic to topic, although perhaps not as severe as yesterday he did confirm that he "felt great today" when he woke up he noticed his handgrip was much better relative to the last few weeks noted no stiffness this am able to move his right shoulder better knees feel better able to move hips better as well very pleased by this he also mentioned he is quite agreeable to attending rehab post-discharge tele overnight - NSR Review of Systems Review of Systems: gen - no fevers, no chills; eating well cv - no cp, no orthopnea pulm - no cough or dyspnea GI - no abd pain or nausea Physical Exam Physical Exam: gen - NAD, still mildly confused, but overall looks better today neck - supple, no JVD mouth - MMM heart - RRR, s1 s2 lungs - soft, fine, b/l rales abd - soft NT ND BS+ ext - trace edema b/l, pulses 2+ b/l skin - stasis changes w/ hyperpigmentation of b/l shins musculo - hip flexion is MUCH improved today b/l, now 4/5 both hips; handgrip on right is MUCH better; less synovitis of multiple joints of R hand improved today; right shoulder extension & mobility much improved; b/l knees with small effusions, no warmth, and able to move the knees much more fluidly psych - confused Results & Data Results & Data ([facility]) Vital Signs (Past 12 Hours) Vital Signs Temp Pulse Pulse Resp BP Pulse Ox 08/31/21 11:14 36.4 C L 75 16 106/70 95 08/31/21 07:29 36.4 C L 71 20 137/80 93 08/31/21 07:14 76 08/31/21 04:06 36.5 C 79 18 125/79 95 08/31/21 03:36 75 14 96 Laboratory Results Laboratory Results - last 24 hr 08/31/21 08/31/21 08/31/21 06:06 06:06 06:06 WBC 3.88 L RBC 3.69 L Hgb 9.4 L Hct 30.1 L MCV 81.6 MCH 25.5 MCHC 31.2 L RDW Std Deviation 44.1 RDW Coeff of Scooter 14.8 H Plt Count 251 MPV 9.7 PT 26.7 H INR 2.6 H Sodium 139 Potassium 4.2 Chloride 105 Carbon Dioxide 30 Anion Gap 4 BUN 20 Creatinine 0.70 Est Cr Clr Drug Dosing 110.3 Est GFR ( Amer) 107.0 Est GFR (Non-Af Amer) 92.3 BUN/Creatinine Ratio 28.6 H Glucose 155 H Calcium 8.5 Iron TIBC Unsaturated IBC Transferrin % Sat Total Creatine Kinase C-Reactive Protein Rheumatoid Factor Lyme Disease IgG Ab Lyme Disease IgM Ab 08/31/21 08/31/21 08/31/21 06:06 06:11 06:11 WBC RBC Hgb Hct MCV MCH MCHC RDW Std Deviation RDW Coeff of Scooter Plt Count MPV PT INR Sodium Potassium Chloride Carbon Dioxide Anion Gap BUN Creatinine Est Cr Clr Drug Dosing Est GFR ( Amer) Est GFR (Non-Af Amer) BUN/Creatinine Ratio Glucose Calcium Iron 25 L TIBC 132 L Unsaturated IBC 107 L Transferrin % Sat 19 L Total Creatine Kinase 53 C-Reactive Protein 16.04 H Rheumatoid Factor Lyme Disease IgG Ab Negative Lyme Disease IgM Ab Negative 08/31/21 08:35 WBC RBC Hgb Hct MCV MCH MCHC RDW Std Deviation RDW Coeff of Scooter Plt Count MPV PT INR Sodium Potassium Chloride Carbon Dioxide Anion Gap BUN Creatinine Est Cr Clr Drug Dosing Est GFR ( Amer) Est GFR (Non-Af Amer) BUN/Creatinine Ratio Glucose Calcium Iron TIBC Unsaturated IBC Transferrin % Sat Total Creatine Kinase C-Reactive Protein Rheumatoid Factor Pending Lyme Disease IgG Ab Lyme Disease IgM Ab PG Care Time/CCT Total # of Minutes Spent Total Time Spent with Patient: Total time spent is greater than 50% in coordination of care (as documented) at patient's floor/unit and/or counseling patient: Coding Level of Care Code 44765 Subseq Hosp Care Lvl 3 Diagnoses Weakness R53.1 Osteoarthritis M19.90 Lymphedema I89.0 Anemia D64.9 Warfarin anticoagulation Z79.01 Essential hypertension I10 History of pulmonary embolus (PE) Z86.711 Obstructive sleep apnea syndrome G47.33 Inflammatory arthropathy M19.90 Acute metabolic encephalopathy G93.41
--- NOTE | 2021-08-31 15:05 | Orthopedic Progress Note ---
Date of Service August 31, 2021 Assessment & Plan (1) Osteoarthritis of knees, bilateral: He still has some pain but it is improved after the injections. We will plan to see him back in clinic in about 3 months. Subjective .75 year old patient who received bilateral knee injections yesterday. He says that he thinks his knees are feeling better. he still has some pain but it is improved. Review of Systems All systems reviewed & are unremarkable except as noted in HPI & below. Physical Exam . Alert and oriented. NAD Bilateral Knee: He can do a straight leg raise. Small effusion of the right knee, minimal effusion of left knee. Motion is about 0-90 degrees. Skin intact. No redness or warmth. Results & Data Results & Data Laboratory Results . Diagnostic Findings . PG Care Time/CCT Total # of Minutes Spent Total Time Spent with Patient: Total time spent is greater than 50% in coordination of care (as documented) at patient's floor/unit and/or counseling patient: Coding Level of Care Code 27842 Post Operative Follow-Up Diagnoses Osteoarthritis of knees, bilateral M17.0 Osteoarthritis type: unspecified (1) Osteoarthritis of knees, bilateral Osteoarthritis type: unspecified Qualified Code(s): M17.0 - Bilateral primary osteoarthritis of knee
[2021-08-31] MEDS: WARFARIN SOD 2 MG TAB PO SCH (15:41)
[2021-09-01 08:03] LABS: Hematocrit (blood only) 30.3 % (42-52); Hemoglobin 9.5 g/dL (14.0-18.0); Mean Corpuscular Hemoglobin 25.4 pg (25-34); Mean Corpuscular Hgb Conc 31.4 g/dL (32-36); Mean Platelet Volume 9.4 fL (7.4-10.4); Platelet Count 272 K/uL (130-400); RDW Standard Deviation 43.8 fL (36.4-46.3); Red Blood Count 3.74 M/uL (4.7-6.1); White Blood Count 7.11 K/uL (4.8-10.8)
[2021-09-01 08:14] LABS: INR 4.8 (0.9-1.1); Prothrombin Time 46.5 Seconds (9.0-12.0)
[2021-09-01 08:34] LABS: BUN Creatinine Ratio 31.9 (10-20); Calcium 8.6 mg/dl (8.5-10.1); Creatinine Clr Calc Pharmacy 111.9 ml/min; Est GFR (African American) 107.6 ml/min; Est GFR (Non-African American) 92.9 ml/min; Potassium 4.2 mmol/L (3.5-5.1)
[2021-09-01] MEDS: VENLAFAXINE HCL 37.5 MG TAB PO SCH ×2 (09:07→21:08)
[2021-09-01] MEDS: CALCIUM 600MG + VIT D 400 IU TAB PO SCH (09:07)
[2021-09-01] MEDS: POLYETHYLENE (MIRALAX) 17 GM PACK PO SCH (09:07)
[2021-09-01] MEDS: carvediloL 12.5 MG TAB PO SCH ×2 (09:07→21:07)
[2021-09-01] MEDS: ACETAMINOPHEN 500 MG TAB PO SCH ×3 (09:07→21:07)
[2021-09-01] MEDS: CYANOCOBALAMIN (B-12) 500 MCG TABLET PO SCH (09:07)
[2021-09-01] MEDS: DICLOFENAC SOD 1% GEL 100 GM TUBE EXT SCH ×2 (09:08→21:08)
[2021-09-01] MEDS: predniSONE 10 MG TABLET PO SCH (09:14)
[2021-09-01] MEDS: PANTOprazole 40 MG TAB PO SCH ×2 (09:14→21:08)
[2021-09-01] MEDS: ALPRAZolam 0.5 MG TABLET PO SCH ×2 (09:14→21:17)
--- NOTE | 2021-09-01 21:00 | Hospitalist Progress Note ---
Date of Service September 01, 2021 Assessment & Plan (1) Inflammatory arthropathy: Plan: Physical exam findings, elevated sed rate/crp, right hand x-rays, and rapid improvement to steroid therapy all point towards inflammatory arthropathy such as RA. Pt's sister has known RA. His right hand x-rays do indeed show erosions which is c/w RA. Inflammatory/erosive OA is possible but less likely as the CRP/sed rate tend not to be that elevated with erosive OA. The cell counts from his knee arthrocentesis show wbcs in the 3000s is c/w inflammatory arthropathy such as RA (a little too high for OA). Finally, RF returned this morning positive. Continue prednisone - received 20mg yesterday, decrease to 10mg today. Keep on low-dose prednisone (5mg or 10mg) until seen by rheumatology in the outpatient setting (will refer to Dr Pérez, [facility] rheum). Anti-CCP ab is pending. Repeat CRP in am. Appreciate neurology consultation. At this point, given the negative brain MRI, negative c-spine MRI for cord compression, normal CPK, etc - a nervous system disorder as the cause of his presentation is felt unlikely. (2) Rheumatoid arthritis: Plan: Highly suspected as noted in #1 above. Cont prednisone. MARKED improvement in all musculoskeletal symptoms since admission s/p b/l knee steroid injections as well as PO prednisone. (3) Acute metabolic encephalopathy: Plan: hospital psychosis? steroid psychosis? other? regardless of etiology it is resolved. MS at baseline today. MRI brain negative for acute CVA or other acute findings. (4) Weakness: Plan: initially thought to be due to ambulatory dysfunction in the setting of severe, b/l knee osteoarthritis. s/p arthrocentesis of both knees - cell counts c/w mild inflammation but no crystal evidence of gout or pseudogout, and no evidence of septic knees. s/p steroid injections to both knees with excellent response. CPK wnl. Lyme neg. all signs point towards #1/#2 as cause of "weakness." He has had a dramatic response to steroid therapy. PMR not suspected. (5) Osteoarthritis: Plan: severe b/l knee OA. now with suspicion of RA. see above. s/p arthrocentesis of both knees with copious amounts of joint fluid removed. cell counts benign/no evidence of septic joint. RA favored as noted above. Cannot exclude "inflammatory OA" but much less likely. see above. (6) Lymphedema: Plan: stable/improved edema at this time (7) Anemia: Plan: Ferritin wnl, but may be falsely elevated given his high sed rate/crp. B12 and folate levels noted - started PO B12 supplementation for low-normal B12 level. chronic anemia could be due to suspected rheumatoid arthritis. H/H mildly low but acceptable. 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 s/p vitamin K -- 08/28/21 -- due to INR of 5.9 at time of admission. INR trended down, but now >3 again. HOLD coumadin. INR am. (9) Essential hypertension: Plan: Cont home meds (10) History of pulmonary embolus (PE): Plan: noted on chronic coumadin (11) Obstructive sleep apnea syndrome: Plan: CPAP (12) Severe protein-calorie malnutrition: Plan: 20+ pounds of weight loss since 04/2021 due to RA?? other process? in light of prior colon cancer history will check CEA in am HE WILL NEED CLOSE F/U OF THIS ISSUE ESPECIALLY IF WEIGHT LOSS CONTINUES AND/OR HE FAILS TO GAIN BACK THE WEIGHT (13) Weight loss: Plan: RA can cause such, but need to exclude other causes as well start with colon cancer history by checking CEA in am Plan: PT, OT sophie appreciated hopefully will be able to return home with home PT/OT reeval tomorrow to determine final disposition daughter extensively updated by phone this evening Admission and Anticipated Discharge Date Admission Date: August 28, 2021 Subjective tele overnight wnl patient "feeling great" today woke up with good energy normal handgrip on right feet feeling well no stiffness any location knees feeling good worked with PT and ambulated well eating well he is hopeful he will be able to return home rather than need rehab I spoke with the pt's daughter by phone she is concerned about her father's weight loss she stated that since he has lost weight review of EMR shows about a 12kg weight loss since 04/23/21 Review of Systems Review of Systems: gen - good appetite, no fatigue, good energy cv - no chest pain, no orthopnea pulm - no cough or dyspnea GI - no abd pain Physical Exam Physical Exam: gen - NAD, confusion resolved, looks great today mouth - MMM heart - RRR, s1 s2 lungs - soft, fine, scant b/l rales bases; otherwise CTA b/l abd - soft NT ND BS+ ext - no edema b/l, pulses 2+ b/l skin - stasis changes w/ hyperpigmentation of b/l shins musculo - synovitis of multiple small joints of R hand RESOLVED; synovitis of b/l knees resolved; synovitis of R shoulder resolved neuro - strength of b/l shoulders and hips 5/5 today; handgrip 5/5 b/l Results & Data Results & Data ([facility]) Vital Signs (Past 12 Hours) Vital Signs Temp Pulse Pulse Resp BP BP Pulse Ox 09/01/21 19:29 36.4 C L 69 18 123/74 97 09/01/21 15:00 69 09/01/21 14:53 36.5 C 72 16 126/77 98 09/01/21 14:22 73 09/01/21 11:22 36.5 C 71 18 128/84 93 Laboratory Results Laboratory Results - last 24 hr 08/31/21 09/01/21 09/01/21 08:35 07:07 07:07 WBC 7.11 RBC 3.74 L Hgb 9.5 L Hct 30.3 L MCV 81.0 MCH 25.4 MCHC 31.4 L RDW Std Deviation 43.8 RDW Coeff of Scooter 15.0 H Plt Count 272 MPV 9.4 PT INR Sodium 141 Potassium 4.2 Chloride 106 Carbon Dioxide 32 Anion Gap 3 BUN 22 Creatinine 0.69 Est Cr Clr Drug Dosing 111.9 Est GFR ( Amer) 107.6 Est GFR (Non-Af Amer) 92.9 BUN/Creatinine Ratio 31.9 H Glucose 118 H Calcium 8.6 Rheumatoid Factor 162 H Cycl Citrul Peptide IgG 09/01/21 09/01/21 07:07 07:07 WBC RBC Hgb Hct MCV MCH MCHC RDW Std Deviation RDW Coeff of Scooter Plt Count MPV PT 46.5 H INR 4.8 H Sodium Potassium Chloride Carbon Dioxide Anion Gap BUN Creatinine Est Cr Clr Drug Dosing Est GFR ( Amer) Est GFR (Non-Af Amer) BUN/Creatinine Ratio Glucose Calcium Rheumatoid Factor Cycl Citrul Peptide IgG Pending PG Care Time/CCT Total # of Minutes Spent Total Time Spent with Patient: Total time spent is greater than 50% in coordination of care (as documented) at patient's floor/unit and/or counseling patient: Coding Level of Care Code 77657 Subseq Hosp Care Lvl 3 Diagnoses Inflammatory arthropathy M19.90 Acute metabolic encephalopathy G93.41 Weakness R53.1 Osteoarthritis M19.90 Lymphedema I89.0 Anemia D64.9 Warfarin anticoagulation Z79.01 Essential hypertension I10 History of pulmonary embolus (PE) Z86.711 Obstructive sleep apnea syndrome G47.33 Severe protein-calorie malnutrition E43 Weight loss R63.4 Rheumatoid arthritis M06.9
[2021-09-02 07:05] LABS: INR 6.3 (0.9-1.1)
[2021-09-02] MEDS ORDERED: PHYTONADIONE 5 MG TAB PO STA (07:52)
[2021-09-02] MEDS: VENLAFAXINE HCL 37.5 MG TAB PO SCH (09:10)
[2021-09-02] MEDS: carvediloL 12.5 MG TAB PO SCH (09:11)
[2021-09-02] MEDS: CYANOCOBALAMIN (B-12) 500 MCG TABLET PO SCH (09:11)
[2021-09-02] MEDS: predniSONE 10 MG TABLET PO SCH (09:11)
[2021-09-02] MEDS: CALCIUM 600MG + VIT D 400 IU TAB PO SCH (09:11)
[2021-09-02] MEDS: PANTOprazole 40 MG TAB PO SCH (09:11)
[2021-09-02] MEDS: ACETAMINOPHEN 500 MG TAB PO SCH ×2 (09:11→11:52)
[2021-09-02] MEDS: FERROUS SULFATE 325 MG TAB PO SCH (09:11)
[2021-09-02] MEDS: POLYETHYLENE (MIRALAX) 17 GM PACK PO SCH (09:12)
[2021-09-02] MEDS: ALPRAZolam 0.5 MG TABLET PO SCH (09:18)
--- NOTE | 2021-09-02 09:19 | Neurology Progress Note ---
Date of Service September 02, 2021 Assessment & Plan (1) Weakness: (2) Arthralgia of multiple joints: (3) Osteoarthritis of knees, bilateral: (4) Cervical spinal stenosis: (5) Anemia: Plan: The patient had some progressive weakness, in an interesting pattern. It is not purely proximal, such as would be typical in a myopathy, and the right side seemed to be worse than the left side in both the arms and legs on 08-31, when i first saw him. There are no actual upper motor neuron signs on examination. Today, the patient seems markedly improved compared to August 31 and has better strength and movement in general. MRI reveals mild to moderate cervical spinal stenosis, at multiple levels, due to disc and bone, but I do not believe there is any actual cord compromise and no cord signal change. Therefore, I do not believe there is a myelopathy. The patient had a markedly elevated CRP and sed rate with normal CK. In addition, there was a markedly elevated rheumatoid factor. This is consistent acute inflammatory condition such as rheumatoid arthritis. There is no evidence to suggest an inflammatory myopathy otherwise. Inclusion body myositis is a possibility with asymmetrical weakness, he does not have the typical finger weakness, dysphagia, or other typical symptoms. CK sometimes is not elevated in inclusion body myositis. The patient has iron deficiency anemia Recommendations: 1. Continue steroids for now but defer dose and course to a gaming cage cashier. 2. rheumatology consult After discharge. 3. As an outpatient, I could perform EMG and nerve conduction studies on 3 or 4 limbs, if the patient is still having significant weakness. If he is markedly improved there is no need for an outpatient EMG. overall, I spent a total of 35 minutes with this patient including review of records, review of MRI films, direct evaluation the patient bedside, and discussion of the case with the patient at bedside and Dr. Salvador including differential diagnosis and treatment options. Admission and Anticipated Discharge Date Admission Date: August 28, 2021 Subjective Patient feels stronger today than previous. He was able to walk with a walker some yesterday and sit out of bed and chair. He has less pain in his joints and less weakness. He has no numbness or tingling, speech problems, or confusion. Blood pressure is 152/93 and he is afebrile. CRP is still elevated at 5.1 but much better than the previous value of 16. Rheumatoid factor was 162. Results & Data ([facility]) Vital Signs (Past 12 Hours) Vital Signs Temp Pulse Pulse Resp BP Pulse Ox 09/02/21 07:27 36.1 C L 66 16 152/93 H 96 09/02/21 07:14 73 18 95 09/02/21 07:13 66 09/02/21 03:53 36.5 C 69 18 124/80 94 09/02/21 02:44 71 17 94 09/02/21 01:33 69 09/01/21 23:13 36.3 C L 64 18 127/83 96 09/01/21 22:12 70 24 95 Exam (Neuro) Physical Exam: he is awake and alert. Speech is without aphasia or dysarthria. Mood is normal and affect is appropriate. Thought processes are intact to conversation. Extraocular eye muscles are intact without nystagmus. He has no facial droop. Tongue is midline. Coordination is normal in the arms without obvious tremor or ataxia. Coordination is normal in the lower extremities as well. Strength is 4/5 in the proximal right upper extremity ( shoulder injury) but otherwise closer to 5/5 diffusely in both arms both proximally and distally. Leg strength was close to 5/5 bilaterally diffusely as well. Toes were downgoing to plantar stimulation bilaterally. Reflexes were 1/4 in the quadriceps, biceps, and brachioradialis tendons bilaterally. Triceps and Achilles tendon reflexes were absent bilaterally. PG Care Time/CCT Total # of Minutes Spent Total Time Spent with Patient: Total time spent is greater than 50% in coordination of care (as documented) at patient's floor/unit and/or counseling patient: Coding Level of Care Code 41430 Subseq Hosp Care Lvl 3 Diagnoses Weakness R53.1 Arthralgia of multiple joints M25.50 Osteoarthritis of knees, bilateral M17.0 Osteoarthritis type: unspecified Cervical spinal stenosis M48.02 Anemia D64.9 Time Spent (min) 35 (1) Osteoarthritis of knees, bilateral Osteoarthritis type: unspecified Qualified Code(s): M17.0 - Bilateral primary osteoarthritis of knee
[2021-09-02] MEDS: DICLOFENAC SOD 1% GEL 100 GM TUBE EXT SCH (09:26)
[2021-09-02 15:15] LABS: INR 5.5 (0.9-1.1); Prothrombin Time 53.5 Seconds (9.0-12.0)
--- NOTE | 2021-09-02 15:48 | Discharge Summary ---
Date of Service date of admission - August 28, 2021 date of discharge - September 02, 2021 Admission HPI Per Admitting Provider 75-year-old male who comes in with inability to ambulate due to chronic lower extremity lymphedema and bilateral knee osteoarthritis with pain. Patient has had bilateral joint effusions for some time in the past. Never been diagnosed with gout and previously has discussed knee replacements with orthopedist. Patient's pain is significant and prevents him from being able to function at home subsequently was brought to the ER. Patient previously has Lyme testing which was negative. In the emergency department the patient was given Tylenol COVID was negative on presentation Patient found to be supratherapeutic with his INR. He is mildly hypokalemic and anemic Principal Diagnosis Severe ambulatory dysfunction 2nd to new-onset Rheumatoid Arthritis Discharge Exam gen - NAD, awake, alert mouth - MMM heart - RRR, s1 s2 lungs - soft, fine, scant b/l rales bases; otherwise CTA b/l abd - soft NT ND BS+ ext - no edema b/l, pulses 2+ b/l skin - stasis changes w/ hyperpigmentation of b/l shins musculo - synovitis of multiple small joints of R hand RESOLVED; synovitis of b/l knees resolved; synovitis of R shoulder resolved neuro - strength of b/l shoulders and hips 5/5; handgrip 5/5 b/l Discharge Data Allergies Allergy/AdvReac Type Severity Reaction Status Date / Time No Known Allergies Allergy Verified 09/09/21 08:27 Consultations [facility] Orthopedic Surgery [facility] Neurology PT, OT Ordered Studies Chest X-Ray 08/28/21 15:29 XR chest 1V portable CLINICAL HISTORY: Atypical chest pain. COMPARISON STUDY: Chest radiograph August 08, 2021. Chest CT May 26, 2021. FINDINGS: Small left pleural effusion has decreased in size since prior exam. There is persistent left basilar opacity. No pneumothorax is present. Skin folds project over the left chest. Cardiac size is normal. No evidence for pulmonary edema. IMPRESSION: Small left pleural effusion, decreased in size since prior exam. Persistent left basilar opacity which could reflect atelectasis or consolidation. Radiographic follow-up to ensure resolution is recommended. ACT 112: Negative or not required by law. Electronically signed by: Carlos Seaman M.D. 08/28/2021 4:15 PM Knee X-Ray 08/28/21 15:29 XR knee LT 3V CLINICAL HISTORY: pain, unable to walk COMPARISON: Knee radiographs February 26, 2019. FINDINGS: No acute fracture is noted. There is marked medial compartment joint space narrowing. Moderate osteoarthritis within the patellofemoral compartment is present. Moderate size joint effusion is noted. There is diffuse soft tissue swelling. IMPRESSION: 1. No acute fracture. 2. Severe left knee osteoarthritis, most pronounced within the medial compartment. 3. Moderate-sized left knee joint effusion. Diffuse soft tissue swelling. ACT 112: Negative or not required by law. Electronically signed by: Carlos Seaman M.D. 08/28/2021 4:18 PM Knee X-Ray 08/28/21 15:29 XR knee RT 3V CLINICAL HISTORY: pain, unable to walk COMPARISON: CT of the right lower leg December 12, 2017. Knee radiographs February 26, 2019. FINDINGS: No acute fracture is identified. A large right knee joint effusion is present. Severe medial compartment osteoarthritis is present. There is moderate patellofemoral compartment osteoarthritis. Diffuse soft tissue swelling is noted. IMPRESSION: 1. No acute fracture. 2. Severe right knee osteoarthritis, most pronounced within the medial compartment. 3. Large joint effusion and diffuse soft tissue swelling. ACT 112: Negative or not required by law. Electronically signed by: Carlos Seaman M.D. 08/28/2021 4:17 PM Brain MRI 08/30/21 16:38 MR brain wo/w con CLINICAL HISTORY: RUE weakness; eval CVA, other pathology TECHNIQUE: Multiplanar and multisequence MR images of the brain were obtained prior to and following administration of gadolinium contrast. Comparison: Comparison is made to MRI brain September 02, 2017 FINDINGS: No abnormal restricted diffusion is identified. The white matter is unremarkable. The ventricular system is normal in appearance. There are no masses, mass effect, or midline shift. No abnormal enhancement is seen. There is no evidence of acute intraparenchymal hemorrhage. No extra axial fluid collections are seen. The corpus callosum, pituitary gland, and cerebellar tonsils appear grossly unremarkable. Flow voids of the major intracranial arterial vessels are identified. The imaged portions of the paranasal sinuses, mastoid air cells, and orbits are unremarkable. IMPRESSION: No acute abnormalities. ACT 112: Negative or not required by law. Electronically signed by: Yan Gao M.D. 08/31/2021 8:29 AM Cervical Spine MRI 08/30/21 16:38 CERVICAL SPINE MRI WITH AND WITHOUT CONTRAST HISTORY: Right upper extremity, LLE/RLE weakness; eval c-spine cord lesion TECHNIQUE: Multiplanar multisequence MRI of the cervical spine was performed both before and after the use of intravenous contrast. COMPARISON STUDY: None. FINDINGS: Significant motion artifact throughout the cervical spine resulting in difficult evaluation. No definite fracture or subluxation within the cervical spine. The visualized posterior fossa appears unremarkable. The cervical spinal cord appears to demonstrate normal signal intensity. No abnormal enhancement within the cervical spine. No evidence for a spinal cord lesion. There is qkoc-lu-elsarhhl disc space narrowing at C4-C5. There is mild disc space narrowing at C3-C4 and C5-C6. Prevertebral soft tissues and the C1-C2 interval are intact. Mild endplate signal abnormality at C5-C6 and C7-T1 likely due to the long-standing degenerative change. Kwny-ho-qwwxzpqg facet degenerative changes throughout the cervical spine. C2-C3: No significant central canal or neural foraminal narrowing. C3-C4: Broad-based posterior disc osteophyte complex asymmetric to the right resulting in mild central canal narrowing and severe right and moderate left neural foraminal narrowing. C4-C5: Broad-based posterior disc bulge asymmetric to the right resulting in mild central canal narrowing. There is moderate right and mild left neural foraminal narrowing. The AP diameter of the central canal is approximately 8 mm. There is mild anterior cord deformity. C5-C6: Broad-based posterior disc bulge resulting in mild central canal and mild bilateral neural foraminal narrowing. There is mild anterior cord deformity. C6-C7: Small left paracentral focal disc protrusion measuring 4 mm resulting in mild left-sided central canal narrowing. No significant neural foraminal narrowing. C7-T1: No significant central canal or neural foraminal narrowing. IMPRESSION: 1. Suboptimal evaluation of the cervical spine due to the significant motion artifact. No definite spinal cord lesions identified. 2. Tgrb-ut-gqkleymj degenerative changes as described above most pronounced at the C4-C5 and C5-C6 levels. 3. No fracture or subluxation. ACT 112: Negative or not required by law. Electronically signed by: Jules Hilario M.D. 08/31/2021 9:06 AM Hand X-Ray 08/31/21 06:19 XR hand RT min 3V routine CLINICAL HISTORY: synovitis multiple joints; eval erosions TECHNIQUE: 3 views of the right hand were obtained. Comparison: Comparison is made to wrist radiograph 08/08/2021 FINDINGS: There is no evidence of an acute fracture. Degenerative changes are seen. These are prominent in the radial carpal row. An old healed fracture/degeneration of the distal ulna and ulnar styloid are seen. Erosions are seen at multiple sites, most prominently in the distal aspect of the proximal phalanges and at the first metacarpophalangeal joint. No soft tissue abnormality is seen. IMPRESSION: Multiple erosions and degenerative changes compatible with erosive arthritis such as rheumatoid arthritis or erosive osteoarthritis. ACT 112: Negative or not required by law. Electronically signed by: Yan Gao M.D. 08/31/2021 8:14 AM Hospital Course (1) Inflammatory arthropathy: Physical exam findings, elevated sed rate/crp (66, 16 respectively) , right hand x-rays (erosive changes seen), and rapid improvement with steroid therapy all were highly suggestive of inflammatory arthropathy such as RA. Patient's sister has known RA. Inflammatory/erosive OA is possible but was felt to be less likely. The cell counts from his knee arthrocentesis showed wbcs in the 3000s c/w inflammatory arthropathy such as RA (a little too high for OA). Rheumatoid factor returned positive. Anti-CCP antibody also was positive. The patient responded rapidly to intra-articular steroid injections to both knees as well as oral prednisone low-dose. CRP improved from 16 to 5 with prednisone. At discharge he will take prednisone 10mg daily for 5 days, then stay on prednisone 5mg daily until seen by [facility], [facility], for his presumed RA. Of note - the patient was seen by [facility] Neurology to ensure that his presenting symptoms were not due to a primary neurological disorder. The patient had a negative brain MRI, negative cervical spine MRI, normal CPK, and negative Lyme screen. Neurology felt that his symptoms were due to inflammatory arthropathy/suspected RA. Inclusion body myositis was briefly entertained as a diagnosis but felt highly unlikely. PMR was not suspected either. (2) Rheumatoid arthritis: Highly suspected as noted in #1 above. RF and anti-CCP antibody were both positive. Continue prednisone as above. The patient had MARKED improvement in all musculoskeletal symptoms s/p b/l knee steroid injections as well as PO prednisone during his stay. He will follow-up with Dr Maurice Pérez, [facility], within 2 weeks of hospital discharge. Of note - initially there was concern that the patient would need inpatient rehab post-discharge. However, he made considerable strides in his overall ambulation once his suspected RA was treated with steroids. PT, OT both felt he could return home with home therapy. (3) Ambulatory dysfunction: 2nd to #1, #2. Resolved. (4) Acute metabolic encephalopathy: hospital psychosis? steroid psychosis? other? regardless of etiology his mental status returned to baseline before discharge. MRI brain negative for acute CVA or other acute findings. (5) Weakness: Initially thought to be due to ambulatory dysfunction in the setting of severe, b/l knee osteoarthritis. s/p arthrocentesis of both knees - cell counts c/w mild inflammation but no crystal evidence of gout or pseudogout, and no evidence of septic knees. s/p steroid injections to both knees with excellent response. CPK wnl. Lyme negative. All signs pointed toward #1/#2 as the cause of his "weakness." He had a dramatic response to steroid therapy. PMR not suspected. (6) Osteoarthritis: severe b/l knee OA. now with suspicion of superimposed RA. see above. s/p arthrocentesis of both knees with copious amounts of joint fluid removed from each. no evidence of septic knee b/l - cultures negative. RA favored as noted above. Cannot exclude "inflammatory OA" but much less likely. see above. (7) Lymphedema: minimal edema at time of discharge (8) Anemia: Ferritin wnl, but may be falsely elevated given his high sed rate/crp. B12 and folate levels noted - started PO B12 supplementation for low-normal B12 level (270). chronic anemia could be due to suspected rheumatoid arthritis. discharge hemoglobin = 9.5. Hopefully with treatment of suspected RA and B12 replacement his H/H improve with time. 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 s/p vitamin K -- 08/28/21 -- due to INR of 5.9 at time of admission. INR was quite labile during the hospitalization. INR was 5.5 on 09/02/21. Patient was instructed to NOT take coumadin 09/02/21, 09/03/21, 09/04/21, or 09/05/21. [facility] will then check his INR on 09/05/21. This INR will be forwarded to Dr Kade De Luna's office for her review. (10) Essential hypertension: Cont coreg (11) History of pulmonary embolus (PE): noted on chronic coumadin see #9 above (12) Obstructive sleep apnea syndrome: cont CPAP (13) Severe protein-calorie malnutrition: 20+ pounds of weight loss since 04/2021 - due to suspected RA?? other process? in light of prior colon cancer history a CEA level was checked --- 1.3 (normal). HE WILL NEED CLOSE F/U OF THIS ISSUE ESPECIALLY IF WEIGHT LOSS CONTINUES AND/OR HE FAILS TO GAIN BACK THE WEIGHT. (14) Weight loss: RA can cause such, but need to exclude other causes as well. Given his colon cancer history CEA level was checked & was normal at 1.3. Home Health Attestation I certify that this patient is under my care and that I, or a physicians health center assistant working with me, had a face to-face encounter that meets the home health njiv-jz-xgem encounter requirements with this patient. The encounter with the patient was in whole, or in part, for the following medical condition, which is the primary reason for home health care (list medical condition): I certify that, based on my findings, the following services are medically necessary home health services: My clinical findings support the need for the above services because: Further, I certify that my clinical findings support that this patient is homebound (i.e. absences from home require considerable and taxing effort and are for medical reasons or adventist services or infrequently or of short duration when for other reasons) because: Certification for Home Health Services: Based on the above findings, I certify that this patient is confined to the home and needs intermittent penitentiary care, physical therapy and/or speech therapy or continues to need occupational therapy. The patient is under my care, and I have initiated the establishment of the plan of care. This patient will be followed by a physician who will periodically review the plan of care. Total Time Total Time Spent Total Time Spent (In Minutes): 50 Discharge Plan Discharge Items Patient Disposition: Home - Home Health Services Reason For Visit: SEVERE WEAKNESS Discharge Diagnosis: 1. suspected rheumatoid arthritis affecting numerous joints (hands, knees, right shoulder, etc) 2. bilateral knee arthritis - likely due to #1 - improved; steroid injections of both knees by orthopedics 3. anemia - at least partially due to suspected rheumatoid arthritis Activity: Resume your previous activity Non-emergency contact: Primary Care Provider and Specialist Call non-emergency contact if: you have any medication questions and your symptoms worsen Follow-up/Referrals: Kristin De Luna MD, PhD [Pathologist] - (please call Dr De Luna THIS SUNDAY with your INR value; she will instruct you on what to do with your coumadin at that time) Haydee Mondragon, DO [Primary Care Provider] - 09/12/21 10:20 am (1 week) Maurice Pérez MD [Physician] - (Dr Pérez's office will contact you with an appointment date/time; he will likely see you in the next 2-3 weeks) Diet: Heart Healthy Addtl Attending Provider Instructions: Mr Bauer, You were hospitalized at [facility] for severe weakness and inability to walk. Initially there was considerable attention on your knees. [facility] saw you in consultation and drained fluid off of both knees. The fluid suggested inflammation of the knees. They then injected steroid into both knees to relieve your pain and improve your walking. In addition, you had severe swelling of multiple joints of your right hand as well as your right shoulder. Even your hips were stiff and difficult to move. With prednisone and time your joints improved tremendously. Your mobility improved, stiffness resolved, and the joint swelling went away. To be complete I had Dr Hernandez from [facility] see you. We did this to ensure that your weakness was not from a nervous system disease. MRI brain did not show a stroke or other abnormalities. MRI of the neck showed arthritis but your spinal cord is otherwise healthy. Dr Hernandez felt that your difficulty in moving/walking was due to your joint disease. A screening test for rheumatoid arthritis returned positive. Lyme disease testing was negative. Your symptoms, x-rays, joint fluid analysis from the knees, your response to steroids, and several other factors all pointed towards a diagnosis of rheumatoid arthritis. By 09/01 and 09/02 you were walking VERY WELL and PT/OT felt you could return home with home therapies (rather than attending inpatient rehab). Recommendations: 1. suspected rheumatoid arthritis (or a rheumatoid like condition) - take prednisone as follows - * 10mg (2 tabs of 5mg) once daily with food x 5 days; first dose 09/03/21; THEN - * 5mg once daily with food thereafter * take until you see Dr Pérez the swimming pool maintenance * it is OK to take mfee-aml-ehsknuv tylenol for aches/pains but do NOT take any motrin, ibuprofen, naprosyn, etc at this time 2. to help prevent stomach irritation from your daily aspirin use and the prednisone please INCREASE your lansoprazole to 30mg once daily every day. New prescription sent to [facility] for you. 3. your vitamin B12 level was mildly low. Take gfcp-zxc-cclapqi vitamin B12 1000mcg once daily. Take this for 1 year. 4. coumadin (warfarin) instructions - * DO NOT TAKE ANY coumadin today, 09/02/21; tomorrow, 09/03/21; 09/04/21; or Sunday09/05/21 * we will have [facility] check your INR (blood thinner level) at your home on 09/05/21 * please call Dr De Luna's office on 09/05/21, with the INR value * Dr De Luna will then give you further instructions on what to do with your coumadin Of note - your INR value today is 5.5. Follow-up - * see Dr Mondragon within 1 week * Dr Pérez, [facility], will see you in the next 2-3 weeks; his office will call you to arrange this appointment Return to [facility] if - * you have fevers over 100 degrees * you have worsening joint swelling or pain * you have difficulty walking * any other concerns It was my pleasure to care for you at [facility]! Dr Salvador Pending Studies at Discharge: Yes Studies:: Additional labs for rheumatoid arthritis Stand-Alone Forms: My [facility], Smoking Cessation Medications and DC Order Prescriptions: New prednisone 5 mg tablet 5 mg PO .daily as directed Qty: 60 RF: 0 Continued aspirin [Adult Aspirin Regimen] 81 mg tablet,delayed release (DR/EC) 81 mg PO DAILY RF: 0 Men's 50 Plus Multivitamin 400-20-370 mcg tablet 1 tab PO DAILY RF: 0 venlafaxine 37.5 mg tablet 37.5 mg PO BID Qty: 180 RF: 1 carvedilol 12.5 mg tablet 12.5 mg PO BID Qty: 180 RF: 1 (DME) CPAP Machine Misc See Rx Instructions .MEDSUPPLY Qty: 1 RF: 0 calcium carbonate-vitamin D3 500 mg(1,250mg) -125 unit Tablet 1 tab PO QAM RF: 0 acetaminophen [Tylenol Extra Strength] 500 mg Tablet 1,000 mg PO Q6H PRN (Reason: Pain) RF: 0 alprazolam [Xanax] 0.5 mg tablet 0.5 mg PO BID RF: 0 Changed lansoprazole 30 mg capsule,delayed release(/EC) 30 mg PO DAILY Qty: 30 RF: 2 Discontinued warfarin 2 mg tablet 2 mg PO QPM RF: 0 No Action warfarin 1 mg tablet See Rx Instructions PO UD Qty: 50 RF: 2 cyanocobalamin (vitamin B-12) 1,000 mcg capsule 1,000 mcg PO DAILY Qty: 90 RF: 3 (DME) 4 wheeled walker See Rx Instructions .Route .MEDSUPPLY Qty: 1 RF: 0 Discharge Orders: Discharge Order (Routine); Ordered 09/02/21 Ordered By: Nelson Mccann/Other Patient Handouts: Arthritis: Exercise Admission Data Admit Date/Time: 08/28/21 17:09 Attending Provider: Nelson Salvador Admit Provider: Liban Salazar Primary Care Provider: Haydee Mondragon Other Providers: Tima Hadley ; Kvng Hernandez Other Interventions: Discharge Summary Assessment (RN) Last Done: 09/02/21 16:33 Coding Level of Care Code D/C DAY MANAGEMENT >30 MINS Diagnoses Inflammatory arthropathy M19.90 Rheumatoid arthritis M06.9 Acute metabolic encephalopathy G93.41 Weakness R53.1 Osteoarthritis M19.90 Lymphedema I89.0 Anemia D64.9 Warfarin anticoagulation Z79.01 Essential hypertension I10 History of pulmonary embolus (PE) Z86.711 Obstructive sleep apnea syndrome G47.33 Severe protein-calorie malnutrition E43 Weight loss R63.4 Ambulatory dysfunction R26.2
== END 2021-09-02 17:14 | disposition home health service (06) | DRG 545 ==
LOC: ED 14:47 → 2W 17:09 → SUATTDRO 17:09 → 2W 19:08

== ENCOUNTER 2024-02-18 05:57 | Observation (INO) ==
--- NOTE | 2024-01-09 14:10 | PAT Medication Instructions ---
Medication Instructions Date of Service January 09, 2024 Home Medications Medication Instructions Recorded venlafaxine 37.5 mg tablet 37.5 mg PO BID #180 tabs 08/06/23 CPAP Machine #1 ea 11/28/23 ferrous sulfate 325 mg (65 mg 325 mg PO BID #60 tabs 12/10/23 iron) tablet (Iron (ferrous sulfate)) Medication List: aspirin 81 mg tablet,delayed release (Adult Aspirin Regimen) 81 mg PO HS calcium carbonate 500 mg-vitamin D3 3.125 mcg (125 unit) tablet 1 tab PO QAM lansoprazole 30 mg delayed release,disintegrating tablet 30 mg PO QAM folic acid 1 mg tablet 1 mg PO QAM prednisone 5 mg tablet 5 mg PO QAM methotrexate sodium 2.5 mg tablet 15 mg PO WK multivitamin 1 tab PO QAM venlafaxine 37.5 mg tablet 37.5 mg PO BID ferrous sulfate 325 mg (65 mg iron) tablet (Iron (ferrous sulfate)) 325 mg PO BID alprazolam 0.5 mg tablet (Xanax) 0.5 mg PO BID Anxiety warfarin 2 mg tablet 1 - 3 mg PO UD MEDICATION INSTRUCTIONS: ASK your prescriber and surgeon warfarin 2 mg tablet 1 - 3 mg PO UD aspirin 81 mg tablet,delayed release (Adult Aspirin Regimen) 81 mg PO HS DO NOT take the morning of surgery folic acid 1 mg tablet 1 mg PO QAM calcium carbonate 500 mg-vitamin D3 3.125 mcg (125 unit) tablet 1 tab PO QAM multivitamin 1 tab PO QAM ferrous sulfate 325 mg (65 mg iron) tablet (Iron (ferrous sulfate)) 325 mg PO BID Take morning of surgery With a small sip of water, OTHERWISE NOTHING TO EAT OR DRINK AFTER MIDNIGHT: venlafaxine 37.5 mg tablet 37.5 mg PO BID alprazolam 0.5 mg tablet (Xanax) 0.5 mg PO BID Anxiety lansoprazole 30 mg delayed release,disintegrating tablet 30 mg PO QAM prednisone 5 mg tablet 5 mg PO QAM Take evening before surgery venlafaxine 37.5 mg tablet 37.5 mg PO BID alprazolam 0.5 mg tablet (Xanax) 0.5 mg PO BID Anxiety ferrous sulfate 325 mg (65 mg iron) tablet (Iron (ferrous sulfate)) 325 mg PO BID Other Notes STOP taking 7 days prior to surgery: methotrexate sodium 2.5 mg tablet 15 mg PO WK If you have any questions please call us at [phone] or [phone] or [phone] or [phone]
--- NOTE | 2024-01-21 10:19 | Anesthesiology Consultation ---
Date of Service January 21, 2024 Assessment & Plan (1) Encounter for pre-operative examination: Plan - check coags STAT am DOS. - Outpatient joint pathway: Per surgeon and patient, plan for outpatient joint program. Patient states his would be home support and has chronic right sided weakness as he notes she has had multiple strokes, he in part wishes to have same day surgery to assist her with ADLs. This was discussed with Dr. Byers in detail who advised patient is medically acceptable to proceed and an acceptable candidate for Same Day Joint Program from anesthesia perspective pending perioperative course; however home support situation is not adequate at this time. He advised if patient can arrange another person staying in the home 24 hours after surgery, he can then be approved for outpatient joint pathway pending surgeon's office completes Same Day Joint Program preop requirements. Patient was made aware of this at PAT visit and states he will coordinate a son or daughter staying in the home with them-he is aware he will need to send update to PAT once/if this is arranged otherwise will need to remain overnight. He verbalized understanding, denied questions or concerns. Chart Review Chart Review: Patient seen in Pre Admission Testing Teaching & Discussion Pre-Anesthesia Teaching/Discussion Notes: Instructed NPO after midnight before surgery, except medications with 15 cc of water. Medication instructions provided according to the PAT guidelines. History Surgery Operation Date: 02/18/24 08:15 Proposed Procedures p OP: Right Anatomic Shoulder Arthroplasty versus Right Reverse Total Shoulder Arthroplasty - Maurice Alvarez, Height/Weight Height: 5 ft 11 in Weight: 104.6 kg Allergies Allergy/AdvReac Type Severity Reaction Status Date / Time No Known Allergies Allergy Verified 01/08/24 11:19 Medications Home Medications Medication Instructions Recorded Confirmed Last Taken aspirin 81 mg tablet,delayed 81 mg PO HS 12/21/17 01/08/24 05/11/22 20:00 release (Adult Aspirin Regimen) calcium 500 mg (as 1 tab PO QAM 01/18/21 01/08/24 05/17/22 08:00 carbonate)-vitamin D3 3.125 mcg (125 unit) tablet lansoprazole 30 mg delayed 30 mg PO QAM 10/05/21 01/08/24 05/17/22 20:00 release,disintegrating tablet folic acid 1 mg tablet 1 mg PO QAM 10/18/21 01/08/24 05/17/22 08:00 prednisone 5 mg tablet 5 mg PO QAM 10/18/21 01/08/24 05/17/22 08:00 methotrexate sodium 2.5 mg tablet 15 mg PO WK 11/09/21 01/08/24 05/11/22 20:00 multivitamin 1 tab PO QAM 02/14/22 01/08/24 05/17/22 08:00 venlafaxine 37.5 mg tablet 37.5 mg PO BID #180 tabs 08/06/23 01/08/24 Unknown CPAP Machine #1 ea 11/28/23 11/28/23 Unknown ferrous sulfate 325 mg (65 mg 325 mg PO BID #60 tabs 12/10/23 01/08/24 Unknown iron) tablet (Iron (ferrous sulfate)) warfarin 2 mg tablet 1 - 3 mg PO UD 01/08/24 01/08/24 Unknown alprazolam 0.5 mg tablet (Xanax) 0.5 mg PO BID Anxiety #60 tabs 01/10/24 Unknown Past Medical History Medical History (Updated 01/21/24 @ 11:16 by Amanda Cabrales PA-C) Anemia 2 iron infusions approx October 2023. Current oral iron supplement. Anxiety Bronchiectasis xrays on occ "dust in lungs" - no problems with breathing. Walk 6 mile daily without sob. Lung test every year at [place]. Chronic venous insufficiency GERD (gastroesophageal reflux disease) controlled, stable per pt History of atrial fibrillation "rapid heart beat, afib" one episode approx 2013 - unknown etiology. No hx cardioversion. History of colon cancer (1992) sx intervention and chemo. History of depression History of DVT (deep vein thrombosis) (2012) right leg, Factor 5 was ruled out in hx per pt. History of high cholesterol History of pulmonary embolus (PE) approx 1998 History of TIA (transient ischemic attack) pt denies hx stroke or mini strokes. Reports slept for 3 days in 2018/ambulance...eval at [facility]. ? infection in leg/had to follow with wound clinic until healed. Unknown further details. [place] (hard of hearing) No hearing aids Hx of fracture of arm Right, no surgical intervention Interstitial lung disease xrays on occ "dust in lungs" - no problems with breathing. Walking 6 mile per day without sob. Lung test every year at [place]. Osteoarthritis Pre-diabetes not that pt aware of. Rheumatoid arthritis Sleep apnea CPAP-compliant Thoracic aortic aneurysm ascending thoracic aorta measures up to 4.1 cm Varicose veins of both lower extremities White coat syndrome without hypertension hx bp meds and dr since d/c'd. Patient denies h/o seizures, heart attack, heart failure, or blood transfusions. Exercise / Class Metabolic Activity II 4-5 Yardwork/Stairs/Walk up hill (denies chest discomfort or shortness of breath with one flight of stairs) Past Family History Family History Unknown Hypertension Father Lung disease Cancer Mother Coronary heart disease Myocardial infarction Family history of diabetes mellitus Diabetes Hypertension Son BRITTNEY (obstructive sleep apnea) Brother Family history of diabetes mellitus Diabetes Sister Family history of diabetes mellitus Denies family history of Ovarian cancer Prostate cancer Breast cancer Colorectal cancer Past Surgical History Surgical History History of appendectomy History of colonoscopy (~2019) History of esophagogastroduodenoscopy (EGD) History of eyelid surgery History of prior ablation treatment for varicose veins x3...most recent approx 2020. History of prior ablation treatment (2021) in office setting/left knee. History of surgery right leg sx for infection x1 2018. History of tonsillectomy Hx of cardiac cath x2 2018 most recent - slept for 3 days...no stents - mn. approx 40 yrs ago at [facility] - pt can't remember why it was done. No stent(s). Hx of cataract extraction R/L S/P left inguinal hernia repair (05/18/22) Left Open Indirect sliding Inguinal Hernia Repair, Bassini Repair,removal lipoma of cord(Left) - Skip Finnegan MD, FACS S/P partial colectomy (1992) 48 % of colon removed + half of liver resection, lymph nodes and appendectomy. Past Anesthesia History No Hx of Anesthesia Complications and No Family Hx of Anesthesia Complications History of PONV No Hx of PONV and No Hx of Motion Sickness Social History Smoking Status: Former smoker tobacco type: cigarettes Do You Dip or Chew Tobacco: No Smoking End Date: 1991 Hx Alcohol Use: Yes (quit 1991) Alcohol type: hard liquor alcohol intake frequency: other Hx Substance Use: No substance use type: does not use Review of Systems Patient denies chest pain, shortness of breath, dyspnea on exertion, fever, chills, cough, wheezing, or palpitations. Physical Exam Vital Signs Vitals BP 168/99 P 68 TEMP 97.9 SP02 99% on RA RESP 18 Physical Patient resting comfortably in chair in no acute distress, alert and oriented, responding appropriately throughout visit Full cervical extension range of motion without pain TMD < 3 finger breadths Mallampati Score 3 Dentition: edentulous, full upper and lower dentures Lungs: normal respiratory effort. Good air movement, clear throughout to auscultation, no adventitious breath sounds Cardiac: regular rate and rhythm, no murmurs noted Carotid arteries: negative bruit bilat Lab Results Anesthesia Preop Results Results Anesthesia Widget: WBC 5.87 K/ul (4.8-10.8) 01/21/24 Hgb 13.5 g/dl (14.0-18.0) L 01/21/24 Hct 40.4 % (42.0-52.0) L 01/21/24 Plt 127 K/uL (130-400) L 01/21/24 Na 141 mmol/L (136-145) 01/21/24 K 4.4 mmol/L (3.5-5.1) 01/21/24 Cl 107 mmol/L (98-107) 01/21/24 CO2 31 mmol/L (21-32) 01/21/24 BUN 13 mg/dl (6-23) 01/21/24 Creat 0.90 mg/dl (0.6-1.4) 01/21/24 Glucose Level 73 mg/dl (70-99(Fasting)) 01/21/24 PT 16.8 Seconds (9.0-12.0) H 01/21/24 PTT 33 Seconds (21-31) H 01/21/24 INR 1.6 (0.9-1.1) H 01/21/24 Blood Type A Positive 01/21/24 Antibody Screen NEGATIVE 01/21/24 Testing Electrocardiogram Date: 01/21/24 NSR, rate 66 bpm Chest X-Ray Date: 01/21/24 No acute cardiopulmonary findings. Echocardiogram Date: 01/18/21 EF 65% No LV regional wall motion abnormalities Moderate cLVH No significant valvular stenosis or regurgitation Valves were not well seen Type 1 diastolic dysfunction Stress Test Date: 04/10/18 MPHR 64% 1. Positive myocardial perfusion study for Lexiscan induced ischemia involving inferior wall. 2. Normal LV size and function. LVEF 60% with no regional wall motion abnormalities. 3. Non-diagnostic stress ECG due to inability to reach target HR with Lexiscan. Cardiac Catheterization Date: 04/17/18 LM -large caliber vessel, angulated, no significant disease LAD -moderate caliber vessel, tortuous, distal luminal irregularities as tapers to apex. Gives off large first diagonal without significant disease Circumflex -large caliber vessel, no significant disease. Gives off a large left PLB without significant disease RCA -large caliber vessel, dominant, tortuous, no significant disease Pulmonary Function Test Date: 02/28/23 Supranormal FEV1 and FVC with mild reduction in ratio. Lung volumes are normal and diffusion capacity slightly reduced compared to prior studies Cervical Spine Date: 01/21/24 No evidence for acute fracture or subluxation.
--- NOTE | 2024-02-14 09:28 | History & Physical Report ---
Date of Service February 14, 2024 Assessment & Plan (1) Osteoarthritis of right shoulder: We will proceed with a right anatomic total shoulder arthroplasty. Postoperatively he will be placed in a sling and will be part of our outpatient joint protocol. He plans to go to outpatient therapy in [place] after discharge. History of Present Illness Chief Complaint: Osteoarthritis of the right shoulder. Primary Care Provider: Haydee Mondragon DO Julius is a pleasant 77-year-old male who has been dealing with chronic increasing right shoulder pain. He has been receiving injections from our office. X-rays have showed progressing arthritis. After failed conservative treatment, he has elected proceed with a right total shoulder arthroplasty. Allergies Allergy/AdvReac Type Severity Reaction Status Date / Time No Known Allergies Allergy Verified 01/08/24 11:19 Home Medications Medication Instructions Recorded Confirmed Type aspirin 81 mg tablet,delayed 81 mg PO HS 12/21/17 01/08/24 History release (Adult Aspirin Regimen) calcium 500 mg (as 1 tab PO QAM 01/18/21 01/08/24 History carbonate)-vitamin D3 3.125 mcg (125 unit) tablet lansoprazole 30 mg delayed 30 mg PO QAM 10/05/21 01/08/24 History release,disintegrating tablet folic acid 1 mg tablet 1 mg PO QAM 10/18/21 01/08/24 History prednisone 5 mg tablet 5 mg PO QAM 10/18/21 01/08/24 History methotrexate sodium 2.5 mg tablet 15 mg PO WK 11/09/21 01/08/24 History multivitamin 1 tab PO QAM 02/14/22 01/08/24 History CPAP Machine #1 ea 11/28/23 11/28/23 Rx ferrous sulfate 325 mg (65 mg 325 mg PO BID #60 tabs 12/10/23 01/08/24 Rx iron) tablet (Iron (ferrous sulfate)) warfarin 2 mg tablet 1 - 3 mg PO UD 01/08/24 01/08/24 History alprazolam 0.5 mg tablet (Xanax) 0.5 mg PO BID Anxiety #60 tabs 02/13/24 Rx venlafaxine 37.5 mg tablet 37.5 mg PO BID #180 tabs 02/13/24 Rx Past Med/Surg History Problem List Osteoarthritis of right shoulder Prediabetes Hernia, inguinal, left Anemia Rotator cuff arthropathy of right shoulder Seropositive rheumatoid arthritis Ambulatory dysfunction Chronic anticoagulation Osteoarthritis Bronchiectasis hx Abnormal CT scan of lung Interstitial lung disease Per records, pt denies Varicose veins of right lower extremity with both ulcer other part of foot and inflammation (Acute) Obstructive sleep apnea syndrome cpap Left knee DJD Right knee DJD Vitamin D insufficiency Anxiety Chronic venous insufficiency Essential hypertension History of colon cancer 1992; sx intervention ; hx chemo Thrombocytopenia (Acute) GERD (gastroesophageal reflux disease) History of TIA (transient ischemic attack) (Chronic) pt denies Medical History White coat syndrome without hypertension hx bp meds and dr since d/c'd. History of high cholesterol History of depression Chronic venous insufficiency Varicose veins of both lower extremities GERD (gastroesophageal reflux disease) controlled, stable per pt Rheumatoid arthritis Osteoarthritis Pre-diabetes not that pt aware of. Sleep apnea CPAP-compliant Interstitial lung disease xrays on occ "dust in lungs" - no problems with breathing. Walking 6 mile per day without sob. Lung test [place] Bronchiectasis xrays on occ "dust in lungs" - no problems with breathing. Walk 6 mile daily without sob. Lung test every year at [place]. History of TIA (transient ischemic attack) pt denies hx stroke or mini strokes. Reports slept for 3 days in 2018/ambulance...eval at [facility]. ? infection in leg/had to follow with wound clinic until healed. Unknown further details. History of atrial fibrillation "rapid heart beat, afib" one episode approx 2013 - unknown etiology. No hx cardioversion. Anxiety History of colon cancer (1992) sx intervention and chemo. History of DVT (deep vein thrombosis) (2012) right leg, Factor 5 was ruled out in hx per pt. Hx of fracture of arm Right, no surgical intervention [place] (hard of hearing) No hearing aids Thoracic aortic aneurysm ascending thoracic aorta measures up to 4.1 cm Anemia 2 iron infusions approx October 2023. Current oral iron supplement. History of pulmonary embolus (PE) approx 1998 Surgical History History of prior ablation treatment (2021) in office setting/left knee. History of surgery right leg sx for infection x1 2018. History of prior ablation treatment for varicose veins x3...most recent approx 2020. S/P left inguinal hernia repair (05/18/22) Left Open Indirect sliding Inguinal Hernia Repair, Bassini Repair,removal lipoma of cord(Left) - Skip Finnegan MD, FACS History of appendectomy Hx of cardiac cath x2 2018 most recent - slept for 3 days...no stents - mn. approx 40 yrs ago at [facility] - pt can't remember why it was done. No stent(s). Hx of cataract extraction R/L History of esophagogastroduodenoscopy (EGD) History of colonoscopy (~2019) History of eyelid surgery History of tonsillectomy S/P partial colectomy (1992) 48 % of colon removed + half of liver resection, lymph nodes and appendectomy. Family History Unknown Hypertension Father Lung disease Cancer Mother Coronary heart disease Myocardial infarction Family history of diabetes mellitus Diabetes Hypertension Son BRITTNEY (obstructive sleep apnea) Brother Family history of diabetes mellitus Diabetes Sister Family history of diabetes mellitus Denies family history of Ovarian cancer Prostate cancer Breast cancer Colorectal cancer Social History Smoking Status: Former smoker Tobacco Type: Cigarettes Age Started Using Tobacco: 12; packs per day: 2; Second Hand Exposure: Yes (at work); Do You Dip or Chew Tobacco: No; Hx Alcohol Use: Yes (quit 1991) Alcohol type: hard liquor Hx Substance Use: No Preferred Language: Malagasy Communication Ability: Effective Communication Ability Comment: [place] Visual Impairment: Severely Limited Hearing Ability: Normal Portable Router Operator Required: No Beliefs That Will Affect Care: None marital status: Current Living Situation: Spouse Current Living Situation Comment: lives in [facility] current occupational status: retired How many Children do You have: 4 How many Children do You have Comment: children are local and able to assist as needed Feels Safe at Home: Yes Diet: regular Diet Comment: regular caffeine: Yes (pot of coffee daily) during the past year weight has: decreased > 10 lbs Dental Care, Regularly: No Physical Activity Frequency: Daily Physical Activity Frequency Comment: Walks dog daily Seatbelt Use: always Sunscreen Use: Yes Assistive Devices: CPAP, Denture - Upper, Denture - Lower, Walker and Other Review of Systems All systems reviewed & are unremarkable except as noted in HPI & below. Physical Exam On physical exam of the right shoulder, he has decreased range of motion. He has pain over the anterior glenohumeral joint line.. Constitutional WD/WN, vitals as above Eyes PERRL, conjunctivae normal, anicteric sclerae ENMT external ear and nose normal, oropharynx normal Neck trachea midline, no thyromegaly Respiratory normal respiratory effort Cardiovascular RRR, no murmur, no edema Gastrointestinal (Abdomen) normal bowel sounds, soft, nontender, no hepatosplenomegaly Psychiatric A+Ox3, euthymic affect Results & Data Results & Data Laboratory Results . Diagnostic Findings X-rays of the right shoulder show advanced osteoarthritis with joint space narrowing, osteophyte formation, and [id number]-hopa articulation. PG Care Time/CCT Total # of Minutes Spent Total Time Spent with Patient: Total time spent is greater than 50% in coordination of care (as documented) at patient's floor/unit and/or counseling patient: Coding Level of Care Code None Diagnoses Osteoarthritis of right shoulder M19.011
[2024-02-18] MEDS ORDERED: LACTATED RINGER'S 500 ML IV SCH (06:00)
[2024-02-18] MEDS ORDERED: BUPIVACAINE 0.5 % 5 MG/1 ML PF 10ML VIAL ONE (06:17)
--- NOTE | 2024-02-18 06:38 | History & Physical Bridge Note ---
Date of Service February 18, 2024 History & Physical Bridge Note I have examined the patient, reviewed the History & Physical and in the interval since the performance of the History & Physical I have noted the following changes of clinical significance: no changes noted
[2024-02-18] MEDS ORDERED: DEXAMETHASONE SOD INJ 4 MG/ML VIAL ONE (06:42)
[2024-02-18] MEDS ORDERED: ONDANSETRON INJ 2 MG/ML 2 ML VIAL ONE (06:42)
[2024-02-18] MEDS ORDERED: PHENYLEPHRINE 100MCG/ML 5ML SYR ONE (06:42)
[2024-02-18] MEDS ORDERED: fentaNYL citrate PF 100 MCG/2 ML VIAL ONE (06:42)
[2024-02-18] MEDS ORDERED: MIDAZOLAM HCL 1 MG/ML 2ML VIAL ONE (06:42)
[2024-02-18] MEDS ORDERED: PROPOFOL IV EMULSION 10 MG/ML 20 ML VIAL IV ONE (06:42)
[2024-02-18] MEDS ORDERED: ATROPINE SULFATE 0.1 MG/ML 10ML SYR IV PRN (06:45)
[2024-02-18] MEDS ORDERED: fentaNYL citrate PF 100 MCG/2 ML VIAL IV PRN (06:45)
[2024-02-18] MEDS ORDERED: ePHEDrine sulfate 50 MG/ML AMP IV PRN (06:45)
[2024-02-18] MEDS ORDERED: PROMETHAZINE HCL 6.25 MG in SODIUM CHLORIDE 0.9% 50 ML IV PRN (06:45)
[2024-02-18] MEDS ORDERED: ONDANSETRON INJ 2 MG/ML 2 ML VIAL IV PRN ×2 (06:45→10:52)
[2024-02-18 07:26] LABS: INR 1.1 (0.9-1.1); Partial Thromboplastin Time 28 Seconds (21-31); Prothrombin Time 11.7 Seconds (9.0-12.0)
[2024-02-18] MEDS: ACETAMINOPHEN 500 MG TAB PO SCH ×2 (07:28→14:09)
[2024-02-18] MEDS: GABAPENTIN 300 MG CAP PO SCH (07:28)
[2024-02-18] MEDS: FAMOTIDINE 20 MG TAB PO SCH (07:28)
[2024-02-18] MEDS: LACTATED RINGER'S 1,000 ML IV SCH (07:28)
[2024-02-18] MEDS: dexAMETHasone**PF** 10 MG/ML VIAL IV SCH (07:28)
[2024-02-18] MEDS: LR 60ML/HR IV SCH (07:29)
[2024-02-18] MEDS: TRANEXAMIC ACID 1,000 MG **IV Pre-op IV SCH (07:43)
[2024-02-18] MEDS: ceFAZolin 2000MG 2,000 MG/15 ML SYR IV SCH ×2 (07:59→16:30)
[2024-02-18] MEDS: TRANEXAMIC ACID 1,000 MG **IV Intra-op IV SCH (08:55)
[2024-02-18] MEDS: ROPIVACAINE 0.5% HCL/PF 246 MG, Ketorolac (*for OR use only*) 30 MG, EPINEPHrine 30MG/3... INFIL SCH (08:59)
[2024-02-18] MEDS: ORTHO JOINT ANESTHETIC ONE (09:00)
--- NOTE | 2024-02-18 09:14 | Operative Report ---
PG Post Operative Report Pre & Post Diagnosis Operation Date: 02/18/24 08:00 Pre-Op Diagnosis: Osteoarthritis of the right shoulder with tendinopathy long head of the biceps tendon Post-Op Diagnosis: Osteoarthritis of the right shoulder with tendinopathy long head of the biceps tendon I identified the patient and participated in the time-out.: Yes Procedure Operation Date: 02/18/24 08:00 Actual Procedures p Right Anatomic Shoulder Arthroplasty (Right) with open biceps tenodesis as a distinct and separate procedure (modifier 59)- Maurice Alvarez DO Surgeon Maurice Alvarez DO Experienced Truck Driver Maurice Moralez PA-C Estimated Blood Loss 150 Findings Consistent with Post-Op Diagnosis Specimens Right humeral head Description of Procedure A CPT code modifier 59: The long head of the biceps tendon was enlarged and inflamed consistent with tendinopathy. A tenodesis was opted. This was a separate and distinct portion of the procedure. For these reasons, a CPT code modifier 59 will be added to this case. Implants used: I used a [employer] Comprehensive total shoulder arthroplasty system with a size 15 press fit micro humeral stem, a size 46 x 18 eccentric humeral head, and a size 4 glenoid with a trabecular metal peg. The glenoid was cemented in place with Palacos G cement. Julius arrived at [facility] for the above procedure. He was seen in the preoperative holding area and the operative extremity was identified and signed. He was given a preoperative antibiotic, TXA, and an interscalene nerve block. He was taken back to the operating room, laid on table in supine position, and put under general anesthesia. He was then put into the beachchair position. The shoulder was then prepped and draped in sterile fashion. A timeout was done and the patient and the operative extremity was properly identified. A deltopectoral approach was used. Dissection was taken down through the fascia and the deltoid was retracted laterally and the conjoined tendon was retracted medially. The anterior shoulder was exposed. The biceps groove was opened up and the biceps tendon was examined extensively. The biceps tendon demonstrated enlargement and inflammatory changes consistent with longstanding inflammation in the context of osteoarthritis. The long head of the biceps tendon was then tenodesed to the upper border of the pectoralis major. This was a separate and distinct portion of the procedure. The subscapularis was then released off the lesser tuberosity with a centimeter of cuff tissue remaining. The inferior capsule was released and the humeral head was dislocated. The rotator cuff was inspected and intact. A canal finding reamer was sent down the center of the humeral canal. Sequential reaming up to a size 15 reamer was done. Offset reamer a proximal humeral resection guide was placed. The proximal humerus was resected at 135 of inclination and 30 of retroversion. Inferior osteophytes were then removed and the glenoid was exposed. Time was spent doing an appropriate labral release. The glenoid measured to be a size 4. A 3.2 mm Steinmann pin was placed in the central hole of the glenoid vault pin guide. The glenoid was then reamed with a propeller reamer. The central post cutter was then used to prepare for the central boss. The cannulated peripheral peg drill guide was then placed and 3 peg holes were drilled. The final size 4 glenoid was then cemented in place with Palacos G cement. Surrounding soft tissues were then injected with 100 cc of an orthopedic pain control cocktail. Once cement had dried the proximal humerus was once again exposed. Sequential broaching of the humerus up to a size 15 broach was done. Off that broach a size 46 x 18 eccentric humeral head was trialed. The shoulder was then reduced, brought through a full range of motion, and felt to be stable. The shoulder was then dislocated and the broach was removed. The final size 15 micro humeral stem implant was then impacted into place. A size 46 x 18 eccentric humeral head was then impacted onto the humeral stem. The shoulder was then reduced and once again brought through a full range of motion and felt to be stable. The subscapularis was then tenodesed back to the lesser tuberosity with transosseous FiberWire sutures and side to side sutures with the arm in 45 of external rotation. 2 sutures were placed in the lateral rotator interval. A dilute betadyne lavage was then done for 3 minutes. The joint was then irrigated with normal saline solution. Hemostasis was obtained. The interval was closed with 2-0 Vicryl suture. The skin was closed with 2-0 Vicryl and verito. A Silverlon dressing was placed and the arm was rested in a regular arm sling. He was then extubated and transferred to a hospital bed. He was taken to the postanesthesia care unit in stable condition. He tolerated the procedure well. Maurice Moralez PA-C, was present for the entire procedure. He was critical for patient positioning, prepping, draping, retraction exposure, wound closure and application of sterile dressing. I attest to the content of the Intraoperative Record and any orders documented therein. Any exceptions are noted below.
--- NOTE | 2024-02-18 09:54 | Anesthesiology Progress Note ---
Date of Service February 18, 2024 Anesthesia Post Procedure Vital Signs Vital Signs: Temp Pulse Pulse Resp BP Pulse Ox O2 Del Method 02/18/24 09:45 81 22 147/82 H 98 Oxymask 02/18/24 09:35 79 20 152/86 H 100 Oxymask 02/18/24 09:28 36.1 C L 79 23 144/86 H 99 Oxymask 02/18/24 06:55 68 20 142/102 H 99 Room Air O2 Flow Rate 02/18/24 09:45 4 02/18/24 09:35 6 02/18/24 09:28 6 02/18/24 06:55 Transfer of Care Handoff Completed per policy Notes Mental Status: alert / awake / arousable Patient Amnestic to Procedure: Yes Nausea / Vomiting: adequately controlled Pain: adequately controlled Airway Patency, RR, SpO2: stable & adequate BP & HR: stable & adequate Hydration State: stable & adequate Neuraxial Anesthesia: was administered and sensory block is resolving Anesthetic Complications: no major complications apparent
--- NOTE | 2024-02-18 10:35 | Anesthesiology Progress Note ---
Date of Service February 18, 2024 Anesthesia Post Procedure Vital Signs Vital Signs: Temp Pulse Pulse Resp BP Pulse Ox O2 Del Method 02/18/24 10:10 36.4 C L 69 16 137/83 95 Room Air 02/18/24 10:05 67 18 141/90 H 97 Oxymask 02/18/24 09:55 72 22 144/81 H 98 Oxymask 02/18/24 09:45 81 22 147/82 H 98 Oxymask 02/18/24 09:35 79 20 152/86 H 100 Oxymask 02/18/24 09:28 36.1 C L 79 23 144/86 H 99 Oxymask 02/18/24 06:55 68 20 142/102 H 99 Room Air O2 Flow Rate 02/18/24 10:10 0 02/18/24 10:05 2 02/18/24 09:55 2 02/18/24 09:45 4 02/18/24 09:35 6 02/18/24 09:28 6 02/18/24 06:55 Transfer of Care Handoff Completed per policy Notes Mental Status: alert / awake / arousable and participated in evaluation Patient Amnestic to Procedure: Yes Nausea / Vomiting: adequately controlled Pain: adequately controlled Airway Patency, RR, SpO2: stable & adequate BP & HR: stable & adequate Hydration State: stable & adequate Anesthetic Complications: no major complications apparent and Pt Satisfied with anesthetic care
[2024-02-18] MEDS ORDERED: METOCLOPRAMIDE HCL INJ 5 MG/ML 2 ML VIAL IV PRN (10:52)
[2024-02-18] MEDS ORDERED: MAGNESIUM HYDROXIDE SUSP 30 ML UDC PO PRN (10:52)
[2024-02-18] MEDS ORDERED: HYDROmorphone INJ 0.5 MG/0.5 ML SYR IV PRN (10:52)
[2024-02-18] MEDS ORDERED: bisacodyL 10 MG SUPP PR PRN (10:52)
[2024-02-18] MEDS ORDERED: oxyCODONE HCL IR 5 MG TAB (IMMEDIATE RELEASE) PO PRN (10:52)
[2024-02-18] MEDS ORDERED: NALOXONE HCL 0.4 MG/1 ML VIAL/CARP IV PRN (10:52)
--- NOTE | 2024-02-18 11:03 | XRay Report ---
XR shoulder RT min 2V routine CLINICAL HISTORY: Post shoulder surgery COMPARISON: Right shoulder radiographs December 04, 2023. FINDINGS: Alignment of the right shoulder arthroplasty is anatomic. There is no periprosthetic fract ure or unexpected radiopaque foreign body. There are skin verito. IMPRESSION: Expected findings following right shoulder arthroplasty. ACT 112: Negative or not required by law. Electronically signed by: Carlos Seaman M.D. 02/18/2024 11:02 AM
[2024-02-18] MEDS: WARFARIN SOD 2 MG TAB PO SCH (16:30)
[2024-02-18] MEDS: SENNA 8.6 MG TAB PO SCH (20:18)
[2024-02-18] MEDS: ALPRAZolam 0.5 MG TABLET PO SCH (20:18)
[2024-02-18] MEDS: DOCUSATE SODIUM 100 MG CAP PO SCH (20:19)
[2024-02-18] MEDS: ASPIRIN 81 MG ECTAB PO SCH (20:20)
[2024-02-18] MEDS: VENLAFAXINE HCL 37.5 MG TAB PO SCH (20:22)
[2024-02-19] MEDS ORDERED: hydrALAZINE 10 MG TAB PO PRN (06:25)
--- NOTE | 2024-02-19 06:56 | Orthopedic Progress Note ---
Date of Service February 19, 2024 Assessment & Plan (1) Status post replacement of right shoulder joint: Overall he is doing fairly well. He is not having much pain in the right shoulder. He will be seen by physical therapy today for ambulation and range of motion exercises. I instructed the nurses to watch his blood pressure throughout the morning. If his systolic blood pressure falls below 160 then he can be discharged to home later this morning. He will follow-up with orthopedics in 2 weeks. Kathy Madrid was seen and examined at bedside this morning. Overall he is doing very well with the shoulder. He is not having much pain. He is been up and ambulating. He has been hypertensive. He is asymptomatic. He has no complaints.. Review of Systems All systems reviewed & are unremarkable except as noted in HPI & below. Physical Exam On physical examination of the right shoulder, the dressing is clean and dry. He is wearing his sling as instructed. He has motion in his hand and his wrist.. Results & Data Results & Data Laboratory Results . Diagnostic Findings Postoperative x-rays of the right shoulder show the prosthesis to be in anatomic alignment without any evidence of fracture, dislocation, or loosening.. PG Care Time/CCT Total # of Minutes Spent Total Time Spent with Patient: Total time spent is greater than 50% in coordination of care (as documented) at patient's floor/unit and/or counseling patient: Coding Level of Care Code 69582 Post Operative Follow-Up Diagnoses Status post replacement of right shoulder joint Z96.611
[2024-02-19 07:27] VITALS: PULSE 60; RESP 16; TEMP 97.5
--- NOTE | 2024-02-19 08:05 | Hospitalist Consultation ---
Date of Consultation February 19, 2024 Assessment & Plan (1) Essential hypertension: H/o HTN, not currently on medical management. Continuing to have elevated BP readings postoperatively - Pain- controlled; utilizing Tylenol; oxycodone on board but has not utilized - I+Os WNL regarding urine output; sx - BMP WNL - Hydralazine 10 mg p.o. 4 times daily as needed for blood pressures greater than 180/110 - Consider Lisinopril 5mg po x 1 if remaining elevated BP - Nurse informed me at 0930 that BP 136/92 on repeat; hold off on providing medications at this time - Recommend that patient follows up with PCP regarding BP. - Medically stable from our standpoint as long as BP remain within normal range (2) Status post replacement of right shoulder joint: H/o osteoarthritis of the right shoulder; s/p right anatomical total shoulder arthroplasty - Failed medical management - XR-R shoulder advanced osteoarthritis, joint space narrowing, osteophyte formation, [id number] articulation - Dr. Maurice Alvarez following (3) Anemia: Follows with CCP - Outpatient meds: Ferrous sulfate 325 mg, Folic acid 1 mg (4) Chronic anticoagulation: On warfarin 2/2 h/o PE - PE 1998; DVT in right leg unknown date Plan GERD- Prevacid Anxiety- venlafaxine, alprazolam H/o colon cancer- 1992; partial colectomy; colonoscopy every 5 years (due 2024) Interstitial lung disease; BRITTNEY- CPAP Dispo: S/p R shoulder arthroplasty VTE prophylaxis: Warfarin (at home dose) Code: Full Supervising Physician Co-Signing Physician Notes During face to face encounter, I obtained a brief history and physical examination, discussed hospital stay with patient and discharge instructions with patient. I discussed discharge plan of care with SADAF Lang I reviewed above note and agree with it except for the following: Medical consult was ordered due to hypertension. Blood pressure though normalized later in the hospital stay. Explained to patient to keep a diary of his blood pressures in the AM. Will recommend discussing with his PCP if he should perhaps start a low dose marine inhibitor 2.5-5mg once daily. History of Present Illness Reason for Consultation: Medical management; HTN Requesting Physician: Maurice Alvarez DO Attending Physician: Maurice Alvarez DO History of Present Illness Patient is a very pleasant 78-year-old male osteoarthritis of the R shoulder requiring right shoulder arthroplasty, HTN, anemia, chronic anticoagulation with warfarin for h/o of PE, interstitial lung disease, anxiety, h/o colon cancer (1992) and GERD who is being evaluated today secondary to elevated blood pressure readings postoperatively. Reports that his pain has been controlled and he is having no additional symptoms. Has dx of HTN in outpatient setting but is not currently managed with medications at this time. Denies chest pain, shortness of breath, fever/chills, numbness/tingling, abdominal pain, N/V/D/C. Please see Dr. Burks's attestation for adjustments/additions to the treatment plan. Allergies Allergy/AdvReac Type Severity Reaction Status Date / Time No Known Allergies Allergy Verified 02/18/24 07:17 Home Medications Medication Instructions Recorded Confirmed Type aspirin 81 mg tablet,delayed 81 mg PO HS 12/21/17 02/20/24 History release (Adult Aspirin Regimen) calcium 500 mg (as 1 tab PO QAM 01/18/21 02/20/24 History carbonate)-vitamin D3 3.125 mcg (125 unit) tablet lansoprazole 30 mg delayed 30 mg PO QAM 10/05/21 02/20/24 History release,disintegrating tablet folic acid 1 mg tablet 1 mg PO QAM 10/18/21 02/20/24 History prednisone 5 mg tablet 5 mg PO QAM 10/18/21 02/20/24 History methotrexate sodium 2.5 mg tablet 15 mg PO WK 11/09/21 02/20/24 History multivitamin 1 tab PO QAM 02/14/22 02/20/24 History CPAP Machine #1 ea 11/28/23 02/20/24 Rx ferrous sulfate 325 mg (65 mg 325 mg PO BID #60 tabs 12/10/23 02/20/24 Rx iron) tablet (Iron (ferrous sulfate)) warfarin 2 mg tablet 1 - 3 mg PO UD 01/08/24 02/20/24 History alprazolam 0.5 mg tablet (Xanax) 0.5 mg PO BID Anxiety #60 tabs 02/13/24 02/20/24 Rx cefadroxil 500 mg capsule 500 mg PO BID 10 days #20 caps 02/18/24 02/20/24 Rx oxycodone 5 mg tablet 5 mg PO Q4H PRN pain #30 tabs 02/18/24 02/20/24 Rx venlafaxine 37.5 mg tablet 37.5 mg PO BID #180 tabs 02/21/24 Rx Patient History Medical History White coat syndrome without hypertension hx bp meds and dr since d/c'd. History of high cholesterol History of depression Chronic venous insufficiency Varicose veins of both lower extremities GERD (gastroesophageal reflux disease) controlled, stable per pt Rheumatoid arthritis Osteoarthritis Pre-diabetes not that pt aware of. Sleep apnea CPAP-compliant Interstitial lung disease xrays on occ "dust in lungs" - no problems with breathing. Walking 6 mile per day without sob. [facility] Bronchiectasis xrays on occ "dust in lungs" - no problems with breathing. Walk 6 mile daily without sob. Lung test [facility] year [facility]. History of TIA (transient ischemic attack) pt denies hx stroke or mini strokes. Reports slept for 3 days in 2018/ambulance...eval at [facility]. ? infection in leg/had to follow with wound clinic until healed. Unknown further details. History of atrial fibrillation "rapid heart beat, afib" one episode approx 2013 - unknown etiology. No hx cardioversion. Anxiety History of colon cancer (1992) sx intervention and chemo. History of DVT (deep vein thrombosis) (2012) right leg, Factor 5 was ruled out in hx per pt. Hx of fracture of arm Right, no surgical intervention KAIBAB (hard of hearing) No hearing aids Thoracic aortic aneurysm ascending thoracic aorta measures up to 4.1 cm Anemia 2 iron infusions approx October 2023. Current oral iron supplement. History of pulmonary embolus (PE) approx 1998 Surgical History History of prior ablation treatment (2021) in office setting/left knee. History of surgery right leg sx for infection x1 2018. History of prior ablation treatment for varicose veins x3...most recent approx 2020. S/P left inguinal hernia repair (05/18/22) Left Open Indirect sliding Inguinal Hernia Repair, Bassini Repair,removal lipoma of cord(Left) - Skip Finnegan MD, FACS History of appendectomy Hx of cardiac cath x2 2018 most recent - slept for 3 days...no stents - mn. approx 40 yrs ago at [facility] - pt can't remember why it was done. No stent(s). Hx of cataract extraction R/L History of esophagogastroduodenoscopy (EGD) History of colonoscopy (~2019) History of eyelid surgery History of tonsillectomy S/P partial colectomy (1992) 48 % of colon removed + half of liver resection, lymph nodes and appendectomy. Family History Unknown Hypertension Father Lung disease Cancer Mother Coronary heart disease Myocardial infarction Family history of diabetes mellitus Diabetes Hypertension Son BRITTNEY (obstructive sleep apnea) Brother Family history of diabetes mellitus Diabetes Sister Family history of diabetes mellitus Denies family history of Ovarian cancer Prostate cancer Breast cancer Colorectal cancer Social History Smoking Status: Former smoker Tobacco Type: Cigarettes Age Started Using Tobacco: 12; packs per day: 2; Second Hand Exposure: Yes (at work); Do You Dip or Chew Tobacco: No; Hx Alcohol Use: Yes (quit 1991) Alcohol type: hard liquor Hx Substance Use: No Preferred Language: Bulgarian Communication Ability: Effective Communication Ability Comment: KAIBAB Visual Impairment: Severely Limited Hearing Ability: Normal 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 Beliefs That Will Affect Care: None marital status: Current Living Situation: Spouse Current Living Situation Comment: lives in [facility] current occupational status: retired How many Children do You have: 4 How many Children do You have Comment: children are local and able to assist as needed Feels Safe at Home: Yes Diet: regular Diet Comment: regular caffeine: Yes (pot of coffee daily) during the past year weight has: decreased > 10 lbs Dental Care, Regularly: No Physical Activity Frequency: Daily Physical Activity Frequency Comment: Walks dog daily Seatbelt Use: always Sunscreen Use: Yes Assistive Devices: Cane, CPAP and Walker Review of Systems Review of Systems: All systems reviewed & are unremarkable except as noted in Subjective Physical Exam Physical Exam: General: No acute distress Skin: Warm and dry, without rashes or lesions Head: Normocephalic, atraumatic Eyes: PERRL, conjunctivae clear, sclera non-icteric; EOM intact ENT: External ear and ear canal without swelling; nose atraumatic Neck: Supple, no LAD; no JVD Cardio: RRR, no M/G/R, S1 and S2 normal Resp: Chest wall symmetric, normal respiratory effort; No respiratory distress, Lungs CTA in all lobes bilaterally, no wheezes, rales, or rhonchi Abdomen: Soft, symmetric, nontender; No visible lesions or scars; no distention; No masses or hepatosplenomegaly Genital: Deferred MSK: R shoulder with dressing that is clean and dry, arm in sling; no sensory deficits, pulse palpable. No deformities; Pulses palpable and equal; No edema. Neuro: Awake, alert Psych: Appropriate mood and affect; good judgement and insight. Results & Data Results & Data Vital Signs (Past 12 Hours) Vital Signs Temp Pulse Resp BP Pulse Ox O2 Del Method 02/19/24 07:26 36.4 C L 60 16 169/101 H 93 Room Air 02/19/24 04:12 36.6 C 68 18 200/138 H 95 Room Air 02/18/24 23:39 36.6 C 69 18 185/99 H 94 Room Air 02/18/24 20:06 36.5 C 74 18 189/83 H 96 Room Air PG Care Time/CCT Total # of Minutes Spent Total Time Spent with Patient: Total time spent is greater than 50% in coordination of care (as documented) at patient's floor/unit and/or counseling patient: Coding Level of Care Code 54169 IN/OBS CONSULT LVL 4,60M Diagnoses Essential hypertension I10 Status post replacement of right shoulder joint Z96.611 Anemia D64.9 Chronic anticoagulation Z79.01 Time Spent (min) 60
[2024-02-19] MEDS: LANSOPRAZOLE 30 MG SOLTAB PO SCH (08:44)
[2024-02-19] MEDS: dexAMETHasone 4 MG TAB PO SCH (08:44)
[2024-02-19] MEDS: MULTIVITAMIN TAB PO SCH (08:44)
[2024-02-19 09:57] LABS: Creatinine Clr Calc Pharmacy 74.9 ml/min; Potassium 3.8 mmol/L (3.5-5.1)
[2024-02-19 10:10] VITALS: O2SAT 96
[2024-02-19 11:09] VITALS: BP 136/94
[2024-02-19] MEDS ORDERED: WARFARIN SOD 3 MG TAB PO SCH (16:00)
== END 2024-02-19 12:44 | disposition home health service (06) ==
LOC: 3E 05:57 → ASU 05:57